=== PATIENT | male | born 1955 | race Caucasian/White ===

== ENCOUNTER 2016-08-06 14:12 | Inpatient (IN) | payer OTHER ==
[~2016-08-06] VITALS: Ht 180.3 cm; Wt 94.8 kg
[2016-08-06] MEDS ORDERED: ONDANSETRON 4 MG (ZOFRAN) ORAL DISSOLVE TAB PO PRN (17:15)
[2016-08-06] MEDS ORDERED: MECLIZINE 25 MG (ANTIVERT) TAB PO PRN (17:15)
[2016-08-06 19:10] VITALS: BP 130/83
[2016-08-06] MEDS: meTOprolol TARTRATE 25 MG (LOPRESSOR) TABLET PO SCH (21:25)
[2016-08-06] MEDS: ATORVASTATIN 40 MG (LIPITOR) TABLET PO SCH (21:25)
[2016-08-06] MEDS: PROPAFENONE 150 MG (RYTHMOL) TABLET PO SCH (21:26)
[2016-08-06] MEDS: PANTOPRAZOLE 40 MG (PROTONIX) TAB PO SCH (21:26)
[2016-08-06] MEDS: MELATONIN 3 MG TABLET PO PRN (22:42)
[2016-08-07 05:47] LABS: BASOPHILS % (AUTO) 0 % (0-10); EOSINOPHILS # (AUTO) 0.9 10^3/uL (0.0-0.3); EOSINOPHILS % (AUTO) 12 % (0-10); LYMPHOCYTES # (AUTO) 1.3 X 10^3 (1.0-4.0); LYMPHOCYTES % (AUTO) 16 % (12-44); MEAN CORPUSCULAR HEMOGLOBIN 28 PG (25-34); MEAN CORPUSCULAR HGB CONC 33 G/DL (32-36); MEAN CORPUSCULAR VOLUME 86 FL (80-99); MEAN PLATELET VOLUME 9.3 FL (7.4-10.4); MONOCYTES # (AUTO) 0.6 X 10^3 (0.0-1.0); MONOCYTES % (AUTO) 8 % (0-12); NEUTROPHILS % (AUTO) 64 % (42-75); PLATELET COUNT 428 10^3/uL (130-400); RED BLOOD COUNT 4.34 10^6/uL (4.35-5.85); RED CELL DISTRIBUTION WIDTH 13.7 % (10.0-14.5); WHITE BLOOD COUNT 7.9 10^3/uL (4.3-11.0)
[2016-08-07 06:14] LABS: ALANINE AMINOTRANSFERASE 48 U/L (0-55); ALBUMIN 3.3 GM/DL (3.2-4.5); ANION GAP 11 MMOL/L (5-14); ASPARTATE AMINO TRANSFERASE 27 U/L (5-34); BILIRUBIN,TOTAL 0.6 MG/DL (0.1-1.0); BLOOD UREA NITROGEN 23 MG/DL (7-18); BUN/CREATININE RATIO 20 (0-20); CALCIUM 8.7 MG/DL (8.5-10.1); CARBON DIOXIDE 22 MMOL/L (21-32); CHLORIDE 106 MMOL/L (98-107); CREATININE SERUM 1.15 MG/DL (0.60-1.30); GFR ESTIMATED > 60; GLUCOSE 101 MG/DL (70-105); HEMOLYSIS 2 (-100-29); ICTERUS 0.5 (-100-1.9); LIPEMIA 1 (-100-49); POTASSIUM 3.7 MMOL/L (3.6-5.0); SODIUM 139 MMOL/L (135-145); TOTAL PROTEIN 6.9 GM/DL (6.4-8.2)
[2016-08-07] MEDS: PROPAFENONE 150 MG (RYTHMOL) TABLET PO SCH (06:15)
[2016-08-07] MEDS: RIVAROXABAN 15 MG TABLET (XARELTO) PO SCH ×2 (06:15→16:53)
[2016-08-07] MEDS: PANTOPRAZOLE 40 MG (PROTONIX) TAB PO SCH ×2 (06:15→21:13)
[2016-08-07 06:26] VITALS: BP 109/72
[2016-08-07 08:05] VITALS: BP 128/80
[2016-08-07] MEDS: meTOprolol TARTRATE 25 MG (LOPRESSOR) TABLET PO SCH ×2 (10:10→21:13)
[2016-08-07] MEDS: DIGOXIN 0.25 MG (LANOXIN) TAB PO SCH (10:10)
[2016-08-07] MEDS: ASPIRIN 81 MG CHEW (CHILDREN'S ASA) PO SCH (10:11)
--- NOTE | 2016-08-07 10:26 | Occupational Therapy Eval ---
OT Evaluation-General/PLF Medical Diagnosis Admission Date Aug 06, 2016 at 18:43 Medical Diagnosis: cerebellar ataxia Onset Date: Jul 23, 2016 Therapy Diagnosis Therapy Diagnosis: decreased self care skills Height/Weight Height (Feet): 5 Height (Inches): 11.00 Weight (Pounds): 209 Weight (Ounces): 0.0 Precautions Precautions/Isolations: Standard Precautions Safety Interventions: Bed Exit Alarm, Reorient-PRN Referral Physician: [place] Medical History Additional Medical History testicular cancer, hyperlipidemia, insomnia, right calcaneus fracture. Current History Pt had a DVT/PE followed by Lauren-fib. Pt then began having episodes of dizziness and ataxia. Reviewed History: Yes Social History Home: Multilevel (can stay on main level) Entry Into Home: Stairs With Railing Steps Into Home: 3 ADL-Prior Level of Function ADL PLOF Comments Pt reports being independent prior to illness. 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 DME/Equipment: Shower Drive Self: Yes OT Current Status Subjective Pt sitting EOB after working with PT, agrees to therapy. Pt has no c/o pain. Mental Status/Objective Patient Orientation: Person, Place, Situation Current Glasses/Contacts: Yes (reading) Hearing Aids: No Dentures/Partials: Yes Hand Dominance: Right Upper Extremity ROM Grossly WFL Upper Extremity Coordination Fair Upper Extremity Sensation Intact per pt report Upper Extremity Strength Grossly WFL ADL-Treatment ADL-Current Pt declined shower today, states he had one yesterday. Agrees to sponge bath. Gait to restroom with minimal assistance for balance using FWW. Pt states he is not walking as well as he was earlier this morning. Doff shirt, shorts, underwear, and socks with SBA while seated. Sponge bath completed seated at sink. Pt able to wash all areas, but required minimal assistance for balance when standing to wash buttocks. Don pullover shirt with set up. Pt donned underwear and shorts with minimal assistance for balance during pant hike. Pt able to manage zipper and button on shorts without assistance. Dons bilateral socks with set up. Grooming tasks completed seated sink. Pt able to comb hair and complete oral care with set up. Pt demonstrates ability to complete toilet transfer with minimal assistance and cues for safety using FWW. Pt states he is having some dizziness, requests to sit in recliner. Pt transferred to recliner with minimal assistance. Sitting in chair with needs met and chair alarm in place after session. RN notified of pt's complaints and disposition. Functional [place] Measure 0=Not Assessed/NA 4=Minimal Assistance 1=Total Assistance 5=Supervision or Setup 2=Maximal Assistance 6=Modified [place] 3=Moderate Assistance 7=Complete IndependenceIRFPAI Quality Coding Scale 6 Independent with activity with or without an assistive device 5 Patient requires set up or clean up by helper. Patient completes activity by themselves 4 Supervision or touching assist (CGA). [place] provide cues , steadying assist 3 The helper provides less than half the effort to complete the activity 2 The helper provides more than half the effort to complete the activity 1 Dependent. The helper does all the effort to complete an activity 7 Patient refused to complete or attempt activity 9 The patient did not perform the activity before the current illness or injury 88 Not attempted due to Medical conditions or safety concerns Eating (FIM): 5 (set up) Eating (QC): 5 Grooming (FIM): 5 Oral Hygiene (QC): 5 Bathing (FIM): 4 Shower/Bathe Self (QC): 4 Upper Body Dressing (FIM): 5 Upper Body Dressing (QC): 5 Lower Body Dressing (FIM): 4 Lower Body Dressing (QC): 3 On/Off Footwear (QC): 5 Toilet/Commode Transfer (FIM): 4 Toilet Transfer (QC): 3 Education OT Patient Education: Rehab process Teaching Recipient: Patient Teaching Methods: Discussion Response to Teaching: Verbalize Understanding OT Short Term Goals Short Term Goals Time Frame: Aug 14, 2016 Bathing(FIM): 5 Lower Body Dressing(FIM): 5 Toilet/Commode Transfer(FIM): 5 Additional Short Term Goals: 1-Demonstrate ADL Tasks, 2-Verbalize Understanding , 3-ImproveStrength/Elyse 1=Demonstrate adherence to instructed precautions during ADL tasks. 2=Patient will verbalize/demonstrate understanding of assistive devices/ modifications for ADL. 3=Patient will improve strength/tolerance for activity to enable patient to perform ADL's. OT Residential Goals Warehouse Engineer Goals Time Frame: Aug 28, 2016 Eating (FIM): 6 Eating (QC): 6 Groomin Oral Hygiene (QC): 6 Bathing(FIM): 6 Shower/Bathe Self (QC): 6 Upper Body Dressing(FIM): 6 Upper Body Dressing (QC): 6 Lower Body Dressing(FIM): 6 Lower Body Dressing (QC): 6 On/Off Footwear (QC): 6 Toileting(FIM): 6 Toileting Hygiene (QC): 6 Toilet/Commode Transfer(FIM): 6 Toilet/Commode Transfer (QC): 6 Shower Transfer(FIM): 6 Additional Goals: 1-Demonstrate ADL Tasks, 2-Verbalize Understanding, 3- ImproveStrength/Elyse 1=Demonstrate adherence to instructed precautions during ADL tasks. 2=Patient will verbalize/demonstrate understanding of assistive devices/ modifications for ADL. 3=Patient will improve strength/tolerance for activity to enable patient to perform ADL's. OT Education/Plan Problem List/Assessment Assessment: Decreased Activ Tolerance, Dependent Transfers, Impaired Coordination, Impaired Funct Balance, Impaired Self-Care Skills Pt to benefit from skilled OT intervention for ADL training, transfers, strengthening, and safety education to maximize level of function and allow safe discharge. Discharge Recommendations Plan/Recommendations: Continue POC Treatment Plan/Plan of Care Treatment,Training & Education: Yes Patient would benefit from OT for education, treatment and training to promote independence in ADL's, mobility, safety and/or upper extremity function for ADL' s. Plan of Care: ADL Retraining, Functional Mobility, Group Exercise/Act as Ind, UE Funct Exercise/Act, UE Neuromus Re-Ed/Coord Treatment Duration: Aug 28, 2016 # of days/week 5-6 Visits Per Week: 10-12 Minutes/Day (M-F): 60-90 Minutes/Day (Sat/Collier): PRN Agreement: Yes Rehab Potential: Good Time/GCodes Start Time: 07:50 Stop Time: 08:20 Total Time Billed (hr/min): 30 Billed Treatment Time 1 visit, EVL(10minutes), ADL(20minutes) LATASHA MORENO OT Aug 07, 2016 10:26
--- NOTE | 2016-08-07 10:48 | Consultation ---
History of Present Illness History of Present Illness Patient Consulted On(hermilo/time) 08/07/16 10:48 Date of Admission 08/06/16 Reason for Visit: vertigo/ataxia History of Present Illness PT IS A 61 Y/O MALE FROM [place], [place]. HE WAS TRANSFERRED TO [facility] AFTER A PROLONGED HOSPITALIZATION. HE HAD INITIALLY BEEN ADMITTED TO [facility] IN [place] FOR PAROXYSMAL ATRIAL FIBRILLATION. HE WAS TRANSFERRED TO [facility] DUE TO PERSISTENT LIGHTHEADEDNESS, VERTIGO, DYSARTHRIA, SHAKING SPELLS. THE WORK- UP AT WAS NEGATIVE FOR ANY KNOWN ETIOLOGIES FOR HIS SYMPTOMS. THE PATIENT REPORTS THAT HE HAS HAD THE VERTIGO/DIZZINESS CHRONICALLY FOR YEARS , BUT AFTER HIS HOSPITALIZATION FOR THE AFIB AT [facility], HE STARTED TO HAVE SEVERE SYMPTOMS THAT IMPACTED HIS ABILITY TO AMBULATE. Allergies and Home Medications Allergies Coded Allergies: acetaminophen (Verified Allergy, Mild, 08/06/16) Past Xmbmysi-Imljje-Auznew Hx Patient Social History Alcohol Use: Occasionally Uses Recreational Drug Use: No Smoking Status: Former Smoker Type Used: Cigarettes Recent Foreign Travel: No Contact w/Someone Who Travel: No Recent Infectious Disease Expo: No Recent Hopitalizations: Yes Physical Abuse Screen: No Sexual Abuse: No Immunizations Up To Date Date of Pneumonia Vaccine: Jan 07, 2014 Seasonal Allergies Seasonal Allergies: No Respiratory Hx Respiratory Disorders: No Cardiovascular Hx Cardiac Disorders: Yes Cardiac Disorders: Atrial Fibrillation, High Cholesterol, Hypertension Neurological Hx Neurological Disorders: Yes Neurological Disorders: Vertigo Reproductive System Hx Reproductive Disorders: No Sexually Transmitted Disease: No HIV/AIDS: No Genitourinary Hx Genitourinary Disorders: No Gastrointestinal Hx Gastrointestinal Disorders: No Musculoskeletal Hx Musculoskeletal Disorders: Yes Musculoskeletal Disorders: Arthritis Endocrine Hx Endocrine Disorders: No HEENT HX ENT Disorders: No Loss of Vision: Denies Hearing Impairment: Denies Cancer Hx Cancer: Yes Cancer: Testicular Psychosocial Hx Psychiatric Problems: No Integumentary Skin/Integumentary Disorders: Psoriasis Blood Transfusions Hx Blood Disorders: No Adverse Reaction to a Blood Tr: No Reviewed Nursing Assessment Reviewed/Agree w Nursing PMH: Yes Family Medical History Significant Family History: Heart Disease, Hypertension Review of Systems-General Date Seen by Provider: Aug 07, 2016 Time Seen by Provider: 09:55 Constitutional: No chills, No fever, malaise, weakness EENTM: No hoarseness, No mouth pain, No throat pain, No throat swelling Respiratory: No cough, No dyspnea on exertion, No short of breath Cardiovascular: No edema, No palpitations Gastrointestinal: No abdominal pain, No constipation, No diarrhea, No nausea, No vomiting Genitourinary: no symptoms reported Musculoskeletal: muscle weakness Skin: no symptoms reported Psychiatric/Neurological: Denies Anxiety, Weakness, Other (DIZZINESS, VERTIGO, ATAXIA WITH AMBULATION) Physical Exam-General Problems Physical Exam Vital Signs Vital Sign - Last 12Hours 08/06/16 19:10 Temp 99.6 Pulse 60 Resp 20 B/P (MAP) 130/83 Pulse Ox 97 O2 Delivery Room Air Capillary Refill : General Appearance: WD/WN, no apparent distress Eyes: Bilateral Eye EOMI, Bilateral Eye Normal Inspection, Bilateral Eye PERRL HEENT: PERRL/EOMI, pharynx normal Neck: non-tender, full range of motion, supple, normal inspection Respiratory: chest non-tender, lungs clear, normal breath sounds, no respiratory distress Cardiovascular: regular rate, rhythm Gastrointestinal: normal bowel sounds, non tender, soft, no organomegaly, no pulsatile mass Extremities: normal range of motion, non-tender, normal inspection, no pedal edema, no calf tenderness, normal capillary refill Neurologic/Psychiatric: terrazzo polisher helper II-XII nml as tested, no motor/sensory deficits, alert, normal mood/affect, oriented x 3 Skin: warm/dry Lymphatic: no adenopathy Assessment/Plan Assessment/Plan Admission Diagnosis/Plan PAROXYSMAL ATRIAL FIBRILLATION VERTIGO WEAKNESS HYPERTENSION HYPERLIPIDEMIA PAROXYSMAL ATRIAL FIBRILLATION - PT IS ON RHYTHMOL, METOPROLOL, XARELTO. - THE RHYTHMOL HAS BEEN DISCONTINUED DUE TO CONCERN OVER THIS SIDE EFFECT OF WORSENING DIZZINESS/VERTIGO/ATAXIA. VERTIGO AND WEAKNESS - PT ON MECLIZINE. HE REPORTS A LONG-STANDING HISTORY OF MILD VERTIGO. PT REPORTS THAT HE STARTED TO HAVE WORSENING DIZZINESS AFTER HE STARTED ON THE RHYTHMOL. I HAVE DISCUSSED HIS CASE WITH THE MANUFACTURING PROJECT MANAGER - DR. KINCAID. WE WILL STOP THE RHYTHMOL AND THEN DETERMINE IF THIS MEDICATION IS PART OF THE CAUSE OF HIS WORSENING DIZZINESS. HYPERTENSION - CONTROLLED- CONTINUE WITH METOPROLOL. HYPERLIPIDEMIA- PT IS ON LIPITOR. CONTINUE WITH PHYSICAL THERAPY. Clinical Quality Measures DVT/VTE Risk/Contraindication: Risk Factor Score Per Nursin RFS Level Per Nursing on Admit: 4+=Very High CHACHA MUNOZ MD Aug 07, 2016 10:48
[2016-08-07 11:47] VITALS: BP 109/74
[2016-08-07] MEDS: acetaZOLAMIDE 250 MG (DIAMOX) TAB PO SCH ×2 (12:15→21:13)
--- NOTE | 2016-08-07 13:20 | Physical Therapy Evaluation ---
PT Evaluation-General Medical Diagnosis Admission Date Aug 06, 2016 at 18:43 Medical Diagnosis: cerebellar ataxia Onset Date: Jul 23, 2016 Therapy Diagnosis Therapy Diagnosis: balance and gait impairment Height/Weight Height (Feet): 5 Height (Inches): 11.00 Weight (Pounds): 209 Weight (Ounces): 0.0 Precautions Precautions/Isolations: Fall Prevention, Standard Precautions Referral Physician: [place] Reason for Referral: Evaluation/Treatment Medical History Pertinent Medical History: Atrial Fib, Thrombosis Current History approximately 3 weeks ago patient patient had a DVT that progressed to a pulmonary embolism. During treatment of this condition he developed A Fib. He notes a long standing condition of poor balance but the symptoms progressed since beginning treatment for the current condition. Reviewed History: Yes Social History Home: Multilevel (can stay on main level) Current Living Status: Spouse Entry Into Home: Stairs With Railing PT Steps Into Home: 3 Prior/Core FIM Prior Level of Function Functional [place] Measure 0=Not Assessed/NA 4=Minimal Assistance 1=Total Assistance 5=Supervision or Setup 2=Maximal Assistance 6=Modified [place] 3=Moderate Assistance 7=Complete [place] Bed Mobility: 7 Transfers (B,C,W/C) (FIM): 7 Gait: 7 Patient has a cane and walker to use if needed. He was not using them prior to this event. PT Evaluation-Current Subjective Pt reports he is feeling improved with less episodes of "dizziness" but he still does not feel his balance is back to the same level it was 2 months ago. Objective Patient Orientation: Normal For Age Problem Solving: Good ROM/Strength ROM Upper Extremities WFL ROM Lower Extremities WFL Strength Upper Extremities 5/5 Strenght Lower Extremities 5/5 Integumentary/Posture Bowel Incontinence: No Sensory Hand Dominance: Right Sensation Right Upper Extremit: Intact Sensation Left Upper Extremity: Intact Sensation Right Lower Extremit: Intact Sensation Left Lower Extremity: Intact Transfers Functional [place] Measure 0=Not Assessed/NA 4=Minimal Assistance 1=Total Assistance 5=Supervision or Setup 2=Maximal Assistance 6=Modified [place] 3=Moderate Assistance 7=Complete IndependenceIRFPAI Quality Coding Scale 6 Independent with activity with or without an assistive device 5 Patient requires set up or clean up by helper. Patient completes activity by themselves 4 Supervision or touching assist (CGA). [place] provide cues , steadying assist 3 The helper provides less than half the effort to complete the activity 2 The helper provides more than half the effort to complete the activity 1 Dependent. The helper does all the effort to complete an activity 7 Patient refused to complete or attempt activity 9 The patient did not perform the activity before the current illness or injury 88 Not attempted due to Medical conditions or safety concerns Transfers (B, C, W/C) (FIM): 4 (steadying assist for balance) Scootin Rollin Roll Left to Right (QC): 4 Supine to/from Sit: 4 Sit to/from Stand: 4 Sit to Lying (QC): 3 Lying to Sitting/Side of Bed(Q: 3 Sit to Stand (QC): 3 Chair/Uec-dh-Idker Xfer(QC): 3 Car Transfer (QC): 3 Gait Does the Patient Walk?: Yes Mode of Locomotion: Walk Anticipated Mode of Locomotion: Walk Gait (FIM): 4 Distance (FIM): 3=150 ft Walk 10 feet (QC): 3 Walk 50 ft with 2 Turns(QC): 3 Walk 150 ft (QC): 3 Walking 10ft/uneven surface-QC: 3 Distance: 150 Gait Level of Assist: 4 Gait Persons Needed: 1 Comments/Gait Description Steadying assistance for gait. Tendency to have lateral ataxia with need for minimal physical assist to return to a balanced position. When walking without device he needs minimal physical asssist for balance. Wheelchair Training Does the Pt Use a Wheelchair?: No Stairs Stairs (FIM): 4 #of Steps: 12 Level of Assist: 4 1 Step (curb) (QC): 3 4 Steps (QC): 3 12 Steps (QC): 3 catches his toe on step when ascending stairs due to lack of fine motor control Balance Sitting Static: Good Sitting Dynamic: Good Standing Static: Fair Standing Dynamic: Fair Picking up an Object (QC): 3 Special Test Comments TUG score of 20 seconds Ott Balance Test 47 out of 56 Assessment/Needs Pt has fine motor deficits that place him at risk during high attention gait and standing balance activities. His score on the Ott Balance Test indicates he is in need of an assistive device for ambulation to reduce risk of falls. Pt will benefit from therapy to address high level balance and gait activities and to address need for an appropriate assistive device. Rehab Potential: Good PT Short Term Goals Short Term Goals Time Frame: Aug 13, 2016 Transfers (B,C,W/C) (FIM): 6 Gait (FIM): 5 Distance (FIM): 3=150 ft Gait Distance Comment: 300 Gait Level of Assist: 5 Gait Assistive Device: FWW Stairs (FIM): 4 # of Steps: 12 Stairs Level of Assist: 4 PT Supervisor Calibration Goals Supervisor Calibration Goals PT Fdc Goals Time Frame: Aug 20, 2016 Transfers (B,C,W/C) (FIM): 6 Sit to Lying (QC): 6 Lying-Sitting on Side/Bed(QC): 6 Sit to Stand (QC): 6 Rollin Roll Left to Right (QC): 6 Chair/Xhi-qd-Qpvhh Xfer(QC): 6 Car Transfer (QC): 6 Does the Patient Walk: Yes Gait distance (FIM): 3=150 ft Distance: 500 Walk 10 feet (QC): 6 Walk 10ft-Uneven Surface(QC): 6 Walk 50ft with 2 Turns (QC): 6 Walk 150 ft (QC): 6 Gait Level of Assist: 6 Gait Assistive Device: FWW, Cane Single Point Stairs (FIM): 6 # of Steps: 12 1 Step (curb) (QC): 6 4 Steps (QC): 6 12 Steps (QC): 6 Stairs Level Of Assist: 6 Picking up an Object (QC): 6 PT Plan Problem List Problem List: Balance, Gait, Transfer Treatment/Plan Treatment Plan: Continue Plan of Care Treatment Plan: Education, Functional Activity E[place]se, Group Therapy, Gait, Safety, Therapeutic Exercise Treatment Duration: Aug 20, 2016 # of days/week 6 Visits Per Week: 11 Minutes/Day (M-F): 90 Minutes/Day (Sat/Collier): 15 Pt/Family Agrees w/Plan: Yes Safety Risks/Education Patient Education: Gait Training, Transfer Techniques, Steps Teaching Recipient: Patient, Family Teaching Methods: Demonstration Response to Teaching: Verbalize Understanding Discharge Recommendations Therapy D/C Recommendations: Home w/ Family Support Barriers to Progress none Target Placement home Time/GCodes Time In: 0700 Time Out: 0750 Total Billed Treatment Time: 50 Total Billed Treatment visit, evaluation moderate complexity 50 minutes DESIREE DEVLIN PT Aug 07, 2016 13:20
--- NOTE | 2016-08-07 13:30 | Consultation-Cardiology ---
HPI-Cardiology Cardiology Consultation Date of Consultation 08/07/16 Date of Admission Time Seen by Provider: 11:50 Indication: atrial fibrillation HPI 61 years old gentleman with history of chronic dizziness, has strong family history of vertigo, was admitted to [facility] in [place] for DVT and PE, started on Xarelto, then he was noted to be in atrial fibrillation, underwent electrical cardioversion which was successful in terminating atrial fibrillation but it did not persist, patient was started on Rythmol, he reported significant worsening in his dizziness and dysarthria in addition to episode of shaking, he was transferred to , underwent extensive workup without success in pinpointing the cause of his vertigo and dizziness, patient is unable to ambulate due to the severe dizziness. He had previous history of dizziness which was not as severe. Had an MRI of the head and spine, patient and reported that all his workup was negative. He was reported to have ataxia and transferred for the acute rehabilitation unit for physical therapy. Home Medications & Allergies Allergies: Coded Allergies: acetaminophen (Verified Allergy, Mild, 08/06/16) Home Medication List Reviewed: Yes HMT-Fnstrf-Cqfocp Hx Patient Social History Marital Status: Alcohol Use: Occasionally Uses Recreational Drug Use: No Smoking Status: Former Smoker Type Used: Cigarettes Recent Foreign Travel: No Recent Infectious Disease Expo: No Recent Hopitalizations: Yes Physical Abuse Screen: No Sexual Abuse: No Immunizations Up To Date Date of Pneumonia Vaccine: Jan 07, 2014 Past Medical History past medical history as discussed below Family Medical History Family Medical Hx family history of dizziness Constitutional: see HPI, dizziness, malaise, weakness EENTM: no symptoms reported, see HPI Respiratory: see HPI, No cough, No dyspnea on exertion, No hemoptysis, No orthopnea, No phlegm, No short of breath, No stridor, No wheezing, No other Cardiovascular: see HPI, No chest pain, No edema, No Hx of Intervention, No palpitations, No syncope, No vascular heart diseas, No other Gastrointestinal: no symptoms reported, see HPI Genitourinary: no symptoms reported, see HPI Musculoskeletal: no symptoms reported, see HPI Skin: no symptoms reported, see HPI Psychiatric/Neurological: No Symptoms Reported, See HPI Reviewed Test Results Reviewed Test Results Lab Laboratory Tests Test 08/07/16 05:16 Range/Units White Blood Count 7.9 4.3-11.0 10^3/uL Red Blood Count 4.34 L 4.35-5.85 10^6/uL Hemoglobin 12.3 L 13.3-17.7 G/DL Hematocrit 37 L 40-54 % Mean Corpuscular Volume 86 80-99 FL Mean Corpuscular Hemoglobin 28 25-34 PG Mean Corpuscular Hemoglobin Concent 33 32-36 G/DL Red Cell Distribution Width 13.7 10.0-14.5 % Platelet Count 428 H 130-400 10^3/uL Mean Platelet Volume 9.3 7.4-10.4 FL Neutrophils (%) (Auto) 64 42-75 % Lymphocytes (%) (Auto) 16 12-44 % Monocytes (%) (Auto) 8 0-12 % Eosinophils (%) (Auto) 12 H 0-10 % Basophils (%) (Auto) 0 0-10 % Neutrophils # (Auto) 5.0 1.8-7.8 X 10^3 Lymphocytes # (Auto) 1.3 1.0-4.0 X 10^3 Monocytes # (Auto) 0.6 0.0-1.0 X 10^3 Eosinophils # (Auto) 0.9 H 0.0-0.3 10^3/uL Basophils # (Auto) 0.0 0.0-0.1 10^3/uL Sodium Level 139 135-145 MMOL/L Potassium Level 3.7 3.6-5.0 MMOL/L Chloride Level 106 98-107 MMOL/L Carbon Dioxide Level 22 21-32 MMOL/L Anion Gap 11 5-14 MMOL/L Blood Urea Nitrogen 23 H 7-18 MG/DL Creatinine 1.15 0.60-1.30 MG/DL Estimat Glomerular Filtration Rate > 60 BUN/Creatinine Ratio 20 0-20 Glucose Level 101 70-105 MG/DL Calcium Level 8.7 8.5-10.1 MG/DL Total Bilirubin 0.6 0.1-1.0 MG/DL Aspartate Amino Transf (AST/SGOT) 27 5-34 U/L Alanine Aminotransferase (ALT/SGPT) 48 0-55 U/L Alkaline Phosphatase 104 40-136 U/L Total Protein 6.9 6.4-8.2 GM/DL Albumin 3.3 3.2-4.5 GM/DL Physical Exam Vital Signs Vital Sign - Last 12Hours 08/06/16 19:10 Temp 99.6 Pulse 60 Resp 20 B/P (MAP) 130/83 Pulse Ox 97 O2 Delivery Room Air Capillary Refill : General Appearance: No Apparent Distress, WD/WN Eyes: Bilateral Eye EOMI, Bilateral Eye Normal Inspection, Bilateral Eye PERRL HEENT: PERRL/EOMI, TMs Normal, Normal ENT Inspection, Pharynx Normal Neck: Full Range of Motion, Normal Inspection, Non Tender, Supple, Carotid Bruit Respiratory: Chest Non Tender, Lungs Clear, Normal Breath Sounds, No Accessory Muscle Use, No Respiratory Distress Cardiovascular: Regular Rate, Rhythm, No Edema, No Gallop, No JVD, No Murmur, Normal Peripheral Pulses Gastrointestinal: Normal Bowel Sounds, No Organomegaly, No Pulsatile Mass, Non Tender, Soft Back: Normal Inspection, No CVA Tenderness, No Vertebral Tenderness Extremity: Normal Capillary Refill, Normal Inspection, Normal Range of Motion, Non Tender, No Calf Tenderness, No Pedal Edema Neurologic/Psychiatric: Alert, Oriented x3, Normal Mood/Affect, Abnormal Gait Skin: Normal Color, Warm/Dry Lymphatic: No Adenopathy A/P-Cardiology Admission Diagnosis Paroxysmal atrial fibrillation DVT/PE Vertigo Ataxia Hypertension Assessment/Plan Paroxysmal atrial fibrillation, underwent electrical cardioversion in [place] and he was unable to maintain sinus rhythm, started on Rythmol and Xarelto, Rythmol was discontinued today for the possibility of worsening his dizziness. I will continue monitoring his symptoms. Deep venous thrombosis/pulmonary embolism, unprovoked, started on Xarelto. Ataxia, dizziness, dysarthria, worsening symptoms, extensive workup was done at , evaluated by ENT, neurologist, unable to pinpoint the cause of his dizziness. Patient has history of chronic dizziness and strong family history of dizziness but he was able to function previously, since his last hospitalization earlier this month he has been unable to function due to severe vertigo and ataxia with dizziness. I agree with Dr. Lima on holding Rythmol and evaluate his tolerance and response. Hypertension, controlled, continue to monitor blood pressure Clinical Quality Measures DVT/VTE Risk/Contraindication: Risk Factor Score Per Nursin RFS Level Per Nursing on Admit: 4+=Very High LUCILA KINCAID MD Aug 07, 2016 13:30
[2016-08-07] MEDS ORDERED: CATHETER FLUSH 10 ML SYR IV PRN (15:45)
[2016-08-07 16:21] VITALS: BP 116/73
--- NOTE | 2016-08-07 20:39 | HISTORY AND PHYSICAL ---
DATE OF SERVICE: 08/06/2016 CHIEF COMPLAINT: Difficulty with walking. HISTORY OF PRESENT ILLNESS: The patient is a 61-year-old male who had been independent and living with his spouse in [place], [place], who developed an irregular heart beat after having a DVT and pulmonary embolism. The patient was treated in [place] and sent home, but then developed dizziness and ataxia. They went on to [facility] where he was diagnosed with cerebellar ataxia. He is referred to [facility] inpatient rehabilitation for ongoing rehabilitation. Currently, he requires assistance for his ADLs mobility skills. He presents to unit with his and two daughters; one of whom, works at a local [employer] in [place],See PT/ OT dmitriy for details of admission functional status. PAST MEDICAL HISTORY: Insomnia, hyperlipidemia, testicular cancer, and right calcaneus fracture. PAST SURGICAL HISTORY: As per above. ALLERGIES: ACETAMINOPHEN, CAUSING A RASH. FAMILY HISTORY: Neurologic history of similar disorder. 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 REVIEW OF SYSTEMS: A 10-point review of system is significant for occasional dizziness, ataxia, gait imbalance, and irregular heart beat. MEDICATIONS: ASA 81 mg p.o. q.d., digoxin 0.25 mg p.o. q.d., Xarelto 15 mg p.o. b.i.d., Rythmol 150 mg p.o. q. 8 hours, Melatonin 6 mg p.o. each day at bedtime p.r.n. sleep, Lipitor 40 mg p.o. each day at bedtime, Lopressor 12.5 mg p.o. b.i.d., Protonix 40 mg p.o. b.i.d., Antivert 25 mg p.o. q.i.d. p.r.n. dizziness, Zofran 4 mg p.o. q. 6 hours p.r.n. nausea, Diamox one 500 mg p.o. b.i.d. PHYSICAL EXAMINATION: GENERAL: Significant for a pleasant male, appearing his stated age, alert and oriented, sitting up in chair, no acute distress. VITAL SIGNS: Blood pressure is 128/80. He is afebrile. Pulse is 69 and respirations 20. O2 sat 94% on room air. HEENT: Vision, speech and hearing grossly intact. No oral lesion is noted. NECK; Supple without mass. HEART: Regular rhythm. LUNGS: Clear. ABDOMEN: Soft, nontender. EXTREMITIES: No leg edema, no calf tenderness. MUSCULOSKELETAL: The patient has functional active range of motion of all 4 extremities. NEUROLOGICAL: He has gait imbalance. His upper limb coordination is fair. Sensation is grossly intact to touch in all four limbs. He has functional strength, but impaired dynamic standing balance, gait instability. Cognition is grossly intact. IMPRESSION: 1. Cerebellar ataxia with gait imbalance. 2. Atrial fibrillation, now controlled on medication. 3. DVT, pulmonary embolism on Xarelto. 4. Insomnia, melatonin ordered to the patient. The patient does not tolerate Ambien. PLAN: The patient will have a comprehensive program with inpatient rehabilitation with a goal of maximizing level of functional independence prior to discharge home with spouse. The patient will have PT and OT 90 minutes per day for gait, strengthening, conditioning, balance, ADLs, any patient's family caregiver training as necessary, adaptive equipment and training as necessary. Speech therapy will do a cognitive assessment and treat as indicated. Rehabilitation nursing to assist with bowel, bladder, skin care, medication administration, pain management. health services information specialist to assist with discharge planning, community reentry. I have asked Dr. Veliz to follow this patient for medical concerns as needed. Therapy will coordinate and follow precautions. Estimated length of stay 2 weeks. PROGNOSIS: Rehab prognosis appears good for a goal of discharging home with spouse, modified independent to supervision for ADLs and mobility skills. DIET: Heart healthy. CODE STATUS: Full code. Job ID: [id number] DocumentID: [id number] Dictated Date: 08/07/2016 10:44:37 Vp Research Date: 08/07/2016 15:01:26 Dictated By: MATI OSUNA MD [facility]
[2016-08-07] MEDS: ATORVASTATIN 40 MG (LIPITOR) TABLET PO SCH (21:13)
[2016-08-07] MEDS: CATHETER FLUSH 10 ML SYR IV SCH (21:13)
[2016-08-07] MEDS: MELATONIN 3 MG TABLET PO PRN (21:13)
--- NOTE | 2016-08-07 21:34 | PM&R Post Admission Assessment ---
Post Admission Physician Asses The preadmission screen agrees with the post admission assessment that the patient is a good candidate for inpatient rehabilitation. The patient will have a comprehensive program of inpatient rehabilitation with a goal of maximizing level of functional independence prior to discharge home with family. The patient will have PT/OT ninety minutes per day, each discipline, five days a week for gait ,strengthening, conditioning, balance, ADLs, any patient/family/caregiver training necessary. Speech therapy to do cognitive assessment and treat as indicted. Rehabilitation nursing to assist with bowel, bladder, skin, medication administration, pain management. Parachute Folder to assist with discharge planning, community reentry. SCD's for DVT prophylaxis. He appears to be well motivated to participate in three hours of therapy a day. He should be able to tolerate three hours of therapy a day from a medical standpoint. He should benefit from the three hours of therapy a day. He has a reasonable discharge plan, reasonable discharge rehabilitation goals and a supportive family. He has various comorbidities that need to be closely monitored with medications and treatments adjusted on a daily basis as needed. These include: A FIb DVT/PE Cerebellar ataxia Barriers to discharge for this patient who had been independent prior to this are for him to be modified independent to supervision for ADLs and mobility skills prior to discharge home with family] so as to lessen the burden of the caregivers. Risks for this patient include: 1. Fall 2. Fracture 3. DVT 4. Pulmonary embolism 5. Wound infection 6. Skin breakdown 7. Contractures 8. Poorly controlled pain 9. Urinary retention 10. UTI 11. Respiratory infection 12. Aspiration 13. Poorly controlled A FIB 14. Recurrent DVT/PE Estimated Length of Stay: 14 days Prognosis: Rehab prognosis appears good for goal of discharge home with family modified independent to supervision for ADLs and mobility skills. MATI OSUNA MD Aug 07, 2016 21:34
[2016-08-08 05:46] VITALS: BP 108/68
[2016-08-08] MEDS: PANTOPRAZOLE 40 MG (PROTONIX) TAB PO SCH ×2 (06:24→20:47)
[2016-08-08] MEDS: CATHETER FLUSH 10 ML SYR IV SCH ×3 (06:24→20:47)
[2016-08-08] MEDS: RIVAROXABAN 15 MG TABLET (XARELTO) PO SCH ×2 (06:24→17:46)
[2016-08-08] MEDS: DIGOXIN 0.25 MG (LANOXIN) TAB PO SCH (08:10)
[2016-08-08] MEDS: ASPIRIN 81 MG CHEW (CHILDREN'S ASA) PO SCH (08:10)
[2016-08-08] MEDS: meTOprolol TARTRATE 25 MG (LOPRESSOR) TABLET PO SCH ×2 (08:11→20:48)
[2016-08-08] MEDS: acetaZOLAMIDE 250 MG (DIAMOX) TAB PO SCH ×2 (08:11→20:48)
[2016-08-08 08:13] VITALS: BP 101/67
[2016-08-08 11:31] VITALS: BP 123/84
--- NOTE | 2016-08-08 11:32 | Progress Note (SOAP) ---
Subjective Date Seen by Provider: Aug 08, 2016 Time Seen by Provider: 10:10 Subjective/Events-last exam PT REPORTS THAT HIS DIZZINESS HAS IMPROVED. HE STATES THAT HIS GAIT ABNORMALITY HAS IMPROVED WELL. HE STATES THAT HIS FATIGUE IS BETTER, BUT NOT BACK TO HOME STAMINA. HE REPORTS THAT HE HAS A FEW EPISODES OF DIZZINESS YESTERDAY, BUT THE EPISODES OF DIZZINESS WERE CLOSER TO HIS CHRONIC DIZZINESS, NOT QUITE EXTREME HIS DIZZINESS WHEN HE WAS AT [facility]. Review of Systems General: No Chills, Fatigue, No Malaise HEENT: No Head Aches Pulmonary: No Dyspnea, No Cough Cardiovascular: No: Chest Pain, Palpitations Gastrointestinal: No: Abdominal Pain, Nausea Genitourinary: No Dysuria Neurological: Weakness, No: Confusion Objective Exam Vital Signs Date Time Temp Pulse Resp B/P (MAP) Pulse Ox O2 Delivery O2 Flow Rate FiO2 08/08/16 09:00 94 Room Air 08/08/16 08:13 76 101/67 08/08/16 07:43 61 08/08/16 05:46 98.0 56 18 108/68 95 Room Air 08/08/16 01:00 60 08/07/16 21:12 60 08/07/16 20:13 Room Air 08/07/16 19:00 65 08/07/16 16:21 99.1 56 20 116/73 97 Room Air 08/07/16 11:47 98.0 60 20 109/74 95 Room Air I & O 08/08/16 07:00 Intake Total 700 ml Balance 700 ml Capillary Refill : General Appearance: No Apparent Distress, WD/WN HEENT: PERRL/EOMI, Pharynx Normal Neck: Full Range of Motion, Supple Respiratory: Chest Non Tender, Lungs Clear, Normal Breath Sounds, No Accessory Muscle Use, No Respiratory Distress Cardiovascular: Regular Rate, Rhythm, No Edema Gastrointestinal: normal bowel sounds, non tender, soft, no organomegaly, no pulsatile mass Extremity: Normal Capillary Refill, No Calf Tenderness, No Pedal Edema Neurologic/Psychiatric: Alert, Oriented x3, Normal Mood/Affect Skin: Warm/Dry, Pet[place]ia (IMPROVED LESIONS ACROSS LOWER LEGS) Lymphatic: No Adenopathy Results Lab Laboratory Tests 08/08/16 05:03: Thyroid Stimulating Hormone (TSH) 4.55 Assessment/Plan Assessment/Plan Assess & Plan/Chief Complaint PAROXYSMAL ATRIAL FIBRILLATION VERTIGO WEAKNESS HYPERTENSION HYPERLIPIDEMIA PAROXYSMAL ATRIAL FIBRILLATION - PT IS ON RHYTHMOL, METOPROLOL, XARELTO. - THE RHYTHMOL HAS BEEN DISCONTINUED DUE TO CONCERN OVER THIS SIDE EFFECT OF WORSENING DIZZINESS/VERTIGO/ATAXIA. PT REPORTS THAT HE IS FEELING GOOD TODAY, NO SENSATION FO PALPITATIONS. VERTIGO AND WEAKNESS - PT ON MECLIZINE. HE REPORTS A LONG-STANDING HISTORY OF MILD VERTIGO. PT REPORTS THAT HE STARTED TO HAVE WORSENING DIZZINESS AFTER HE STARTED ON THE RHYTHMOL. I HAVE DISCUSSED HIS CASE WITH THE TRACK REPAIRER HELPER - DR. KINCAID. WE WILL STOP THE RHYTHMOL AND THEN DETERMINE IF THIS MEDICATION IS PART OF THE CAUSE OF HIS WORSENING DIZZINESS. - PT IS OFF OF THE RHYTHMOL AND HE REPORTS THAT HE IS FEELING MUCH BETTER TODAY - HIS DIZZINESS HAS IMPROVED A LOT AND HE WAS ABLE TO SHOWER WITHOUT FEELING DIZZY. HYPERTENSION - CONTROLLED- CONTINUE WITH METOPROLOL. HYPERLIPIDEMIA- PT IS ON LIPITOR. CONTINUE WITH PHYSICAL THERAPY. Clinical Quality Measures DVT/VTE Risk/Contraindication: Risk Factor Score Per Nursin RFS Level Per Nursing on Admit: 4+=Very High CHACHA MUNOZ MD Aug 08, 2016 11:32
[2016-08-08 18:26] VITALS: BP 106/72
[2016-08-08] MEDS: ATORVASTATIN 40 MG (LIPITOR) TABLET PO SCH (20:47)
[2016-08-08] MEDS: MELATONIN 3 MG TABLET PO PRN (20:56)
[2016-08-09 05:09] VITALS: BP 138/74
[2016-08-09] MEDS: CATHETER FLUSH 10 ML SYR IV SCH ×3 (06:12→22:17)
[2016-08-09] MEDS: RIVAROXABAN 15 MG TABLET (XARELTO) PO SCH ×2 (06:12→16:59)
[2016-08-09] MEDS: PANTOPRAZOLE 40 MG (PROTONIX) TAB PO SCH ×2 (06:12→21:16)
--- NOTE | 2016-08-09 08:11 | Cardiology Progress Note ---
Subjective Date Seen by Provider: Aug 09, 2016 Time Seen by Provider: 08:08 Subjective/Events-last exam Patient just finished walking with PT. States dizziness has improved significantly since discontinuing Rythmol. Reports dizziness back to baseline. Denies any CP or dyspnea. Review of Systems General: No Night Sweats, No Fatigue, No Malaise HEENT: No Visual Changes, No Dysphasia, No Sore Throat, Other (chronic dizziness) Pulmonary: No Dyspnea, No Cough Cardiovascular: No: Chest Pain, Edema, Palpitations, Paroxysmal Noc. Dyspnea Gastrointestinal: No: Abdominal Pain, Constipation, Nausea, Vomiting Genitourinary: No Dysuria, No Frequency Musculoskeletal: No: back pain, neck pain Neurological: No: Change in speech, Confusion, Numbness, Weakness Objective-Cardiology Exam Last Set of Vital Signs Vital Signs 08/09/16 08/09/16 05:09 07:00 Temp 98.4 Pulse 58 Resp 16 B/P (MAP) 138/74 Pulse Ox 99 O2 Delivery Room Air Capillary Refill : I&O Intake and Output 08/09/16 00:00 Intake Total 400 ml Balance 400 ml Intake Oral 400 ml # Voids 3 General: Alert, Oriented X3, Cooperative HEENT: Atraumatic, PERRLA Neck: Supple, No JVD, No Thyromegaly Lungs: Clear to Auscultation, Normal Air Movement Heart: No Murmurs, Other (irregularly irregular) A/P-Cardiology Admission Diagnosis Paroxysmal atrial fibrillation DVT/PE Vertigo Ataxia Hypertension Assessment/Plan Paroxysmal atrial fibrillation, underwent electrical cardioversion in [place] and he was unable to maintain sinus rhythm, started on Rythmol and Xarelto, Rythmol was discontinued and dizziness significantly improved. Continue current medications and continue to monitor. Deep venous thrombosis/pulmonary embolism, unprovoked, started on Xarelto. Ataxia, dizziness, dysarthria, worsening symptoms, extensive workup was done at , evaluated by ENT, neurologist, unable to pinpoint the cause of his dizziness. Patient has history of chronic dizziness and strong family history of dizziness but he was able to function previously, since his last hospitalization earlier this month he has been unable to function due to severe vertigo and ataxia with dizziness. Dizziness improved significantly since discontinuing Rythmol. Hypertension, controlled, continue to monitor blood pressure Clinical Quality Measures DVT/VTE Risk/Contraindication: Risk Factor Score Per Nursin RFS Level Per Nursing on Admit: 4+=Very High AWILDA ARREAGA Aug 09, 2016 08:11
--- NOTE | 2016-08-09 08:29 | Progress Note (SOAP) ---
Subjective Time Seen by Provider: 08:25 Subjective/Events-last exam patient states he's feeling okay today [facility] Patient had proximal atrial fibrillation. Patient had PE and DVT. Patient had dizziness and vertigo Patient has a history of hypertens. Possible stroke Objective Exam Vital Signs Date Time Temp Pulse Resp B/P (MAP) Pulse Ox O2 Delivery O2 Flow Rate FiO2 08/09/16 07:00 58 08/09/16 06:11 64 08/09/16 05:09 98.4 60 16 138/74 99 Room Air 08/09/16 01:00 57 08/08/16 20:27 Room Air 08/08/16 19:00 67 08/08/16 18:26 98.5 66 14 106/72 99 Room Air 08/08/16 13:00 53 08/08/16 11:31 66 18 123/84 96 Room Air 08/08/16 09:00 94 Room Air I & O 08/09/16 07:00 Intake Total 1000 ml Balance 1000 ml Capillary Refill : General Appearance: No Apparent Distress, WD/WN HEENT: Normal ENT Inspection Neck: Normal Inspection Respiratory: Chest Non Tender, No Accessory Muscle Use, No Respiratory Distress Cardiovascular: Regular Rate, Rhythm, No Murmur Gastrointestinal: non tender, soft Assessment/Plan Assessment/Plan Assess & Plan/Chief Complaint proximal atrial fibrillation. PE and DVT. Dizziness. DVT. Hypertension. Vertigo versus dizziness. Possible stroke. Patient work in progress. Patient using a walker Clinical Quality Measures DVT/VTE Risk/Contraindication: Risk Factor Score Per Nursin RFS Level Per Nursing on Admit: 4+=Very High MALISSA NELSON DO Aug 09, 2016 08:28
--- NOTE | 2016-08-09 08:57 | Physical Therapy Daily Note ---
PT Daily Note-Current Subjective Patient in recliner pre tx, agrees to PT, no complaints of pain. Patient states he has not had any dizziness recently since a change in meds. Appearance Patient in recliner post tx with nurse call, phone, tray, in room. Mental Status Patient Orientation: Normal For Age Transfers Functional Sullivan Measure 0=Not Assessed/NA 4=Minimal Assistance 1=Total Assistance 5=Supervision or Setup 2=Maximal Assistance 6=Modified Sullivan 3=Moderate Assistance 7=Complete IndependenceIRFPAI Quality Coding Scale 6 Independent with activity with or without an assistive device 5 Patient requires set up or clean up by helper. Patient completes activity by themselves 4 Supervision or touching assist (CGA). [place] provide cues , steadying assist 3 The helper provides less than half the effort to complete the activity 2 The helper provides more than half the effort to complete the activity 1 Dependent. The helper does all the effort to complete an activity 7 Patient refused to complete or attempt activity 9 The patient did not perform the activity before the current illness or injury 88 Not attempted due to Medical conditions or safety concerns Transfers (B, C, W/C) (FIM): 4 Sit to/from Stand: 4 CGA, cues for safety and hand placement Gait Training Gait (FIM): 4 Distance: 200'x2, 150' Gait Level of Assist: 4 Gait Persons Needed: 1 Gait Assistive Device: FWW Patient ambulated 150' and 200' with a rolling walker with CGA, and 200' with a single point cane with CGA. He was unsteady with the SPC but no LOB. Patient ambulates slowly and carefully, needs cues not to slide feet across the floor when using the cane. Stair Training Stair Training: Handrails/: 1 handrail Stairs (FIM): 4 #of Steps: 12 Stairs: Pattern: Step to Level of Assist: 4 CGA, cues for foot placement and safety, did not catch his toes on the edge of the steps this time Exercises sit to stand 3 sets of 10, LAQ alternating for 5 min with 2# ankle weights Neuromuscular cone activity - picking up cone and turning and walking to a stool and setting it on that and then turning again to go lab support technician a cone from the floor, 6 cones x2 Treatments transfers, ambulation, balance training, functional strengthening Assessment Current Status: Fair Progress no dizziness, better stairs, was unsteady with ambulation but no LOB PT Short Term Goals Short Term Goals Time Frame: Aug 13, 2016 Transfers (B,C,W/C) (FIM): 6 Gait (FIM): 5 Distance (FIM): 3=150 ft Gait Distance Comment: 300 Gait Level of Assist: 5 Gait Assistive Device: FWW Stairs (FIM): 4 # of Steps: 12 Stairs Level of Assist: 4 PT Head Of [employer] Goals Usp Goals PT Head Of [employer] Goals Time Frame: Aug 20, 2016 Transfers (B,C,W/C) (FIM): 6 Sit to Lying (QC): 6 Lying-Sitting on Side/Bed(QC): 6 Sit to Stand (QC): 6 Rollin Roll Left to Right (QC): 6 Chair/[id number] Xfer(QC): 6 Car Transfer (QC): 6 Does the Patient Walk: Yes Gait distance (FIM): 3=150 ft Distance: 500 Walk 10 feet (QC): 6 Walk 10ft-Uneven Surface(QC): 6 Walk 50ft with 2 Turns (QC): 6 Walk 150 ft (QC): 6 Gait Level of Assist: 6 Gait Assistive Device: FWW, Cane Single Point Stairs (FIM): 6 # of Steps: 12 1 Step (curb) (QC): 6 4 Steps (QC): 6 12 Steps (QC): 6 Stairs Level Of Assist: 6 Picking up an Object (QC): 6 PT Plan Problem List Problem List: Activity Tolerance, Functional Strength, Safety, Balance, Gait, Transfer Treatment/Plan Treatment Plan: Continue Plan of Care Treatment Plan: Education, Functional Activity [place], Group Therapy, Gait, Safety, Therapeutic Exercise Treatment Duration: Aug 20, 2016 Visits Per Week: 11 Minutes/Day (M-F): 90 Minutes/Day (Sat/[place]): 15 Safety Risks/Education Patient Education: Gait Training, Transfer Techniques, Steps, Correct Positioning, Safety Issues Teaching Recipient: Patient Teaching Methods: Demonstration, Discussion Response to Teaching: Reinforcement Needed Time/GCodes Time In: 800 Time Out: 900 Total Billed Treatment Time: 60 Total Billed Treatment 1 visit GT 30' EX 15' NM 15' DANTE ERVIN PT Aug 09, 2016 08:57
[2016-08-09] MEDS: meTOprolol TARTRATE 25 MG (LOPRESSOR) TABLET PO SCH ×2 (09:15→21:16)
[2016-08-09] MEDS: DIGOXIN 0.25 MG (LANOXIN) TAB PO SCH (09:15)
[2016-08-09] MEDS: ASPIRIN 81 MG CHEW (CHILDREN'S ASA) PO SCH (09:15)
[2016-08-09] MEDS: acetaZOLAMIDE 250 MG (DIAMOX) TAB PO SCH ×2 (09:15→21:15)
--- NOTE | 2016-08-09 09:40 | Cardiology Progress Note ---
Subjective Date Seen by Provider: Aug 09, 2016 Time Seen by Provider: 09:38 Subjective/Events-last exam Patient is in a chair, feeling better, no new complaint, borderline bradycardia Review of Systems General: No Chills, No Night Sweats, No Fatigue, No Malaise, No Appetite, No Other HEENT: No Head Aches, No Visual Changes, No Eye Pain, No Ear Pain, No Dysphasia , No Sinus Congestion, No Post Nasal Drip, No Sore Throat, No Other Pulmonary: No Dyspnea, No Cough, No Pleuritic Chest Pain, No Other Cardiovascular: No: Chest Pain, Edema, Lt Headedness, Orthopnea, Other, Palpitations, Paroxysmal Noc. Dyspnea Objective-Cardiology Exam Last Set of Vital Signs Vital Signs 08/09/16 08/09/16 05:09 07:00 Temp 98.4 Pulse 58 Resp 16 B/P (MAP) 138/74 Pulse Ox 99 O2 Delivery Room Air Capillary Refill : I&O Intake and Output 08/09/16 00:00 Intake Total 400 ml Balance 400 ml Intake Oral 400 ml # Voids 3 General: Alert, Oriented X3, Cooperative HEENT: Atraumatic, PERRLA Neck: Supple, No JVD, No Thyromegaly Lungs: Clear to Auscultation, Normal Air Movement Heart: Regular Rate, Normal S1, Normal S2, No Murmurs Abdomen: Normal Bowel Sounds, Soft Extremities: No Clubbing, No Cyanosis Skin: No Rashes Neuro: Normal Gait A/P-Cardiology Admission Diagnosis Paroxysmal atrial fibrillation DVT/PE Vertigo Ataxia Hypertension Assessment/Plan Paroxysmal atrial fibrillation, underwent electrical cardioversion in [place] and he was unable to maintain sinus rhythm, started on Rythmol and Xarelto, Rythmol was discontinued and dizziness significantly improved. Continue current medications and continue to monitor. Deep venous thrombosis/pulmonary embolism, unprovoked, started on Xarelto. Ataxia, dizziness, dysarthria, worsening symptoms, extensive workup was done at , evaluated by ENT, neurologist, unable to pinpoint the cause of his dizziness. Patient has history of chronic dizziness and strong family history of dizziness but he was able to function previously, since his last hospitalization earlier this month he has been unable to function due to severe vertigo and ataxia with dizziness. Dizziness improved significantly since discontinuing Rythmol. Hypertension, controlled, continue to monitor blood pressure Clinical Quality Measures DVT/VTE Risk/Contraindication: Risk Factor Score Per Nursin RFS Level Per Nursing on Admit: 4+=Very High LUCILA KINCAID MD Aug 09, 2016 09:40
[2016-08-09] MEDS ORDERED: MECL-106 PO (10:35)
[2016-08-09] MEDS ORDERED: ONDA4TAB8 PO (10:35)
[2016-08-09] MEDS ORDERED: DIGO250T6 PO (10:35)
[2016-08-09] MEDS ORDERED: ACET-2267 PO (10:35)
[2016-08-09] MEDS ORDERED: ASPI-999 PO (10:35)
[2016-08-09] MEDS ORDERED: PROP150T2 PO (10:35)
[2016-08-09] MEDS ORDERED: PANT40TA2 PO (10:35)
[2016-08-09] MEDS ORDERED: RIVA20TA PO (10:35)
[2016-08-09] MEDS ORDERED: ACET250T3 PO (10:35)
[2016-08-09] MEDS ORDERED: ATOR40TA PO (10:35)
[2016-08-09] MEDS ORDERED: METO-333 PO (10:35)
[2016-08-09] MEDS ORDERED: RIVA15TA PO ×2 (10:35→10:52)
--- NOTE | 2016-08-09 11:13 | Occupational Ther Daily Note ---
OT Current Status-Daily Note Subjective Pt alert, sitting in recliner. Family present in room. Pt agreed to therapy. No c/o pain at this time. C/o not sleeping well. Mental Status/Objective Patient Orientation: Person, Place, Time, Situation Functional [place] Measure 0=Not Assessed/NA 4=Minimal Assistance 1=Total Assistance 5=Supervision or Setup 2=Maximal Assistance 6=Modified [place] 3=Moderate Assistance 7=Complete [place] Attachments: IV ADL-Treatment Functional [place] Measure 0=Not Assessed/NA 4=Minimal Assistance 1=Total Assistance 5=Supervision or Setup 2=Maximal Assistance 6=Modified [place] 3=Moderate Assistance 7=Complete IndependenceIRFPAI Quality Coding Scale 6 Independent with activity with or without an assistive device 5 Patient requires set up or clean up by helper. Patient completes activity by themselves 4 Supervision or touching assist (CGA). Secretary provide cues , steadying assist 3 The helper provides less than half the effort to complete the activity 2 The helper provides more than half the effort to complete the activity 1 Dependent. The helper does all the effort to complete an activity 7 Patient refused to complete or attempt activity 9 The patient did not perform the activity before the current illness or injury 88 Not attempted due to Medical conditions or safety concerns Grooming (FIM): 6 (Pt stood at sink and completed grooming by self using FWW.) Oral Hygiene (QC): 6 (Pt stood at sink and completed oral care by self using FWW.) Bathing (FIM): 6 (Using shower seat, hand held shower and grabbars pt is able to complete by self.) Bathing Location: L Arm, R Arm, L Upper Leg, R Upper Leg, L Lower Leg ( including foot), R Lower Leg (including foot), Chest, Abdomen, Buttocks, Perineal Area Shower/Bathe Self (QC): 6 Upper Body (FIM): 5 ( retrieved clothing for pt. Pt able to complete upper body dressing by self.) Upper Body Dressing (QC): 5 ( retrieved clothing for pt. Pt able to complete upper body dressing by self.) Lower Body Dressing (FIM): 5 ( retrieved clothing for pt. Pt able to complete lower body dressing by self.) Lower Body Dressing (QC): 5 ( retrieved clothing for pt. Pt able to complete lower body dressing by self.) On/Off Footwear (QC): 5 (Set up required. Pt able to complete donning/doffing footwear by self.) Toileting (FIM): 6 (Using FWW and grabbars pt is able to complete toileting by self.) Toileting Hygiene (QC): 6 (Using FWW and grabbars pt is able to complete toileting by self.) Transfers (B, C, W/C) (FIM): 6 (With safety concerns, pt is able to complete by self.) Toilet/Commode Transfer (FIM): 6 (Using grabbars and FWW, pt is able to complete by self.) Toilet Transfer (QC): 6 (Using FWW and grabbars, pt is able to complete by self.) Shower Transfer(FIM): 6 (Using FWW, grabbars and shower seat completes by self. ) Pt does demonstrate ability to complete ADLs though does have safety concerns. Other Treatment Pt ambulated from room to therapy gym with CGA using FWW. Pt has slight LOB when backing and turning corners. Pt completed arm bike 15 min duration at 20- 25 ledesma resistance (no recovery breaks) to increase strength and activity tolerance for daily functional tasks. Pt ambulated back to room with FWW. After therapy, pt sitting in recliner with call light/phone in reach. All needs met in room. OT Short Term Goals Short Term Goals Time Frame: Aug 14, 2016 Bathing(FIM): 5 Lower Body Dressing(FIM): 5 Transfers (B,C,W/C) (FIM): 6 Toilet/Commode Transfer(FIM): 5 Additional Short Term Goals: 1-Demonstrate ADL Tasks, 2-Verbalize Understanding , 3-ImproveStrength/Elyse 1=Demonstrate adherence to instructed precautions during ADL tasks. 2=Patient will verbalize/demonstrate understanding of assistive devices/ modifications for ADL. 3=Patient will improve strength/tolerance for activity to enable patient to perform ADL's. OT Inspector Heating And Refrigeration Goals [facility] Goals Time Frame: Aug 28, 2016 Eating (FIM): 6 Eating (QC): 6 Groomin Oral Hygiene (QC): 6 Bathing(FIM): 6 Shower/Bathe Self (QC): 6 Upper Body Dressing(FIM): 6 Upper Body Dressing (QC): 6 Lower Body Dressing(FIM): 6 Lower Body Dressing (QC): 6 On/Off Footwear (QC): 6 Toileting(FIM): 6 Toileting Hygiene (QC): 6 Toilet/Commode Transfer(FIM): 6 Toilet/Commode Transfer (QC): 6 Shower Transfer(FIM): 6 Additional Goals: 1-Demonstrate ADL Tasks, 2-Verbalize Understanding, 3- ImproveStrength/Elyse 1=Demonstrate adherence to instructed precautions during ADL tasks. 2=Patient will verbalize/demonstrate understanding of assistive devices/ modifications for ADL. 3=Patient will improve strength/tolerance for activity to enable patient to perform ADL's. OT Education/Plan Problem List/Assessment Pt to benefit from skilled OT intervention for ADL training, transfers, strengthening, and safety education to maximize level of function and allow safe discharge. Discharge Recommendations Plan/Recommendations: Continue POC Treatment Plan/Plan of Care Patient would benefit from OT for education, treatment and training to promote independence in ADL's, mobility, safety and/or upper extremity function for ADL' s. Plan of Care: ADL Retraining, Functional Mobility, Group Exercise/Act as Ind, UE Funct Exercise/Act, UE Neuromus Re-Ed/Coord Treatment Duration: Aug 28, 2016 Visits Per Week: 10-12 Minutes/Day (M-F): 60-90 Minutes/Day (Sat/Collier): PRN Agreement: Yes Rehab Potential: Good Time/GCodes Start Time: 07:00 Stop Time: 08:00 Total Time Billed (hr/min): 60 Billed Treatment Time 1 visit-ADL 3 (40 min) EX 1 (20 min) MACK [place]MING[place] Aug 09, 2016 11:13
--- NOTE | 2016-08-09 11:51 | ST Cognitive Linguistic Eval ---
Speech Evaluation-General Medical Diagnosis cerebellar ataxia Onset Date: Jul 23, 2016 Therapy Diagnosis Therapy Diagnosis: Cognitive Linguistic Skills WFL Precautions Precautions/Isolations: Standard Precautions Referral Referring Physician: Dr. Reinier Boyle Reason for Referral: Evaluation/Treatment Cognitive Evaluation Medical History Pertinent Medical History: Atrial Fib, Thrombosis Reviewed History: Yes Social History Current Living Status: Spouse Speech PLF-Current Status Prior Level of Function The patient denied any previous or current challenges with speech, language, or cognition. 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 The patient greeted the clinician appropriately and was agreeable to participation in the cognitive evaluation. Language Eval: Auditory Comprehends Simple Yes/No Ques: Functional Indent/Objects Multiple Singh: Functional Ident/Pics in Multiple Singh: Functional Follows 1-Step Commands: Functional Follows Complex Directions: Functional Follows General Conversations: Functional Language Eval: Verbal Language Completes Spontaneous Greeting: Functional Produces Auto, Serial Info: Functional Imitates Simple Words/Phrases: Functional Word Finding: Functional Requests Basic Needs: Functional States Basic Personal Info: Functional Expresses Complex Ideas: Functional Cognitive Patient Orientation The patient was oriented to month, day of week, date, and year (independently). Objective Cognitive Domain Attention: WNL Memory: WNL Problem Solving: Functional Objective Impression The patient demonstrated cognitive linguistic skills WNL and appropriate for completion of ADL's. Communication/Social Cognition Comprehension: 6 Expression: 6 Social Interaction: 6 Problem Solvin Memory: 6 Speech Patient Assess Expression of Ideas/Wants: Expression (4) Understanding Vebal Content: Understands (4) Brief Interview-Mental Status: Yes Repetition of Three Words: Three (3) Temporal Orientation: Year: Correct (3) Temporal Orientation: Month: Accurate within 5 days(2) Temporal Orientation: Day: Correct (1) Recall : Wear to say "Sock": Yes, no cue required (2) Recall : Color: Yes, no cue required (2) Recall : Bed: Yes, no cue required (2) Speech-Plan Treatment Plan Speech Therapy Treatment Plan: Discontinue ST Evaluation, only. Rehab Potential: Good Safety Risks/Education Teaching Recipient: Patient Teaching Methods: Discussion Response to Teaching: Verbalize Understanding Education Topics Provided: Results, Plan of Care, Recommendations Time Speech Therapy Time In: 11:00 Speech Therapy Time Out: 11:15 Total Billed Time: 15 Billed Treatment Time 1, SPSNDCOMP MICHELE,CARMINA ST Aug 09, 2016 11:51
--- NOTE | 2016-08-09 14:58 | Therapy Group Daily Note ---
Therapy Daily Group Note Patient Education Topic Home Safety Exercises LE Seated Exercise, UE Exercise Other/Notes Pt ambulated to OT/PT group with CGA using FWW. OT/PT group consisted of introductions (name, place living, first $ earned), socialization, UE/LE seated exercises, home safety, adaptive equipment, and problem solving photos of unsafe situations around the home. Pt was able to introduce self appropriately. Pt contributed to each discussion and verbalized understanding of home safety and the use of adaptive equipment. Pt was able to participate fulling in UE/LE seated exercises. Pt ambulated with FWW back to room. After group, pt sitting in recliner with call light/phone in reach. Family present in room. All needs met in room. Start Time: 13:00 Stop Time: 14:15 Total Billed Treatment Time: 75 Total Billed Treatment 1-GRP MACK [place] Aug 09, 2016 14:58
--- OUTSIDE RECORDS SUMMARY | 2016-08-09 15:34 | XMS REPORT | Continuity of Care Document ---
Author Author [facility] Address Unknown Phone Unavailable Care Team Providers Care Meter Mechanic Name Role Phone Database, Physician Not In PCP Unavailable Source Comments Some departments are not documenting in the electronic medical record. If you do not see the information that you expected, contact Release of Information in the Health Information Management department at [phone] for further assistance in locating additional records.[facility] Active Allergies and Adverse Reactions Allergen Noted Date Severity Reactions Comments Acetaminophen 08/03/2016 Medium RASH Current Medications Prescription Sig. Disp. Refills Start End Date Status Date acetaminophen (TYLENOL) Take 500 mg by mouth Active 500 mg tablet every 6 hours as needed for Pain. Max of 4,000 mg of acetaminophen in 24 hours. atorvastatin (LIPITOR) 40 Take 1 Tab by mouth at 08/07/19 Active mg tablet bedtime daily. 17 Indications: HYPERLIPIDEMIA aspirin 81 mg chewable Chew 1 Tab by mouth 08/07/19 Active tablet daily. Take with food. 17 acetaZOLAMIDE (DIAMOX) Take 2 Tabs by mouth 08/07/19 Active 250 mg tablet twice daily. 17 vitamins, multiple cap Take 1 Cap by mouth Active daily. digoxin (LANOXIN) 250 mcg Take 250 mcg by mouth Active tablet daily. pantoprazole DR Take 40 mg by mouth twice Active (PROTONIX) 40 mg tablet daily. propafenone (RYTHMOL) 150 Take 150 mg by mouth Active mg tablet every 8 hours. metoprolol tartrate Take 12.5 mg by mouth Active (LOPRESSOR) 25 mg tablet twice daily. ondansetron (ZOFRAN ODT) Dissolve 4 mg by mouth Active 4 mg rapid dissolve every 8 hours as needed tablet for Nausea or Vomiting. Place on tongue to disolve. meclizine (ANTIVERT) 25 Take 25 mg by mouth four Active mg tablet times daily as needed. rivaroxaban (XARELTO) 15 Take 1 Tab by mouth twice 08/07/19 Active mg tablet daily. Take with food. 17 Starting 08/07 take 20mg once daily rivaroxaban (XARELTO) 15 Take 15 mg by mouth twice 08/07/19 Discontin mg tablet daily. Take with food. 17 ued aspirin EC 325 mg tablet Take 325 mg by mouth 08/07/19 Discontin daily. Take with food. 17 ued bisacodyl (DULCOLAX) 10 Insert or Apply 10 mg to 08/07/19 Discontin mg rectal suppository rectal area as directed 17 ued as Needed. milk of magnesia (CONC) Take 30 mL by mouth as 08/07/19 Discontin 2,400 mg/10 mL oral Needed for Heartburn. 17 ued suspension SODIUM Insert or Apply to 08/07/19 Discontin PHOSPHATE,MONO-DIBASIC rectal area as directed 17 ued (FLEET ENEMA RE) as Needed. traMADol (ULTRAM) 50 mg Take 50 mg by mouth every 08/07/19 Discontin tablet 4 hours as needed for 17 ued Pain. 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 Ataxia 08/03/2016 Most Recent Encounters Date Type Specialty Providers Description 08/05/2016 Orders Only Neurology Eduar Lawrence MD Ataxia (Primary Dx ) 08/04/2016 Screening Form 08/04/2016 Screening Form 08/04/2016 Screening Form 08/04/2016 Screening Form 08/03/2016 [facility] Declan Johnson MD Episodic ataxia (HCC) - Encounter 08/06/2016 Social History Tobacco Use Types Packs/Day Years Used Date Former Smoker Alcohol Use Drinks/Week oz/Week Comments Yes 10 Standard 6.0 drinks or equivalent Last Filed Vital Signs Vital Sign Reading Time Taken Blood Pressure 121/81 08/06/2016 1:52 PM CDT Pulse 57 08/06/2016 1:52 PM CDT Temperature 36.8 C (98.2 F) 08/06/2016 1:52 PM CDT Respiratory Rate - - Height 1.803 m (5' 11") 08/05/2016 2:03 PM CDT Weight 97.977 kg (216 lb) 08/05/2016 2:03 PM CDT Body Mass Index 30.14 08/05/2016 2:03 PM CDT Oxygen Saturation 98% 08/06/2016 1:52 PM CDT Plan of Care Health Maintenance Due Date Last Done Comments Hepatitis C Screening 1955 Physical (Comprehensive) 02/25/1963 Exam Pertussis Vaccine 02/25/1967 Tetanus Vaccine 02/25/1973 Colorectal Cancer 02/25/2006 Screening Shingles Vaccine 2016 Influenza Vaccine 10/15/2016 Results from Last 3 Months * COMPREHENSIVE METABOLIC PANEL (08/06/2016 4:56 AM) Only the most recent of 4 results within the time period is included. Component Value Range Sodium 135 (L) 137-147 MMOL/L Potassium 4.4 3.5-5.1 MMOL/L Chloride 103 98-110 MMOL/L Glucose 108 (H) 70-100 MG/DL Blood Urea Nitrogen 22 7-25 MG/DL Creatinine 1.21 0.4-1.24 MG/DL Calcium 10.0 8.5-10.6 MG/DL Total Protein 7.5 6.0-8.0 G/DL Total Bilirubin 0.6 0.3-1.2 MG/DL Albumin 3.6 3.5-5.0 G/DL Alk Phosphatase 101 25-110 U/L AST (SGOT) 31 7-40 U/L CO2 24 21-30 MMOL/L ALT (SGPT) 50 7-56 U/L Anion Gap 8 3-12 eGFR Non >60Comment: >60 mL/min The eGFR is not validated for use in drug dosing adjustments. Continue to use estimated creatinine clearance per dosing reference text. Please contact the Clinical Pharmacist for questions. eGFR >60Comment: >60 mL/min The eGFR is not validated for use in drug dosing adjustments. Continue to use estimated creatinine clearance per dosing reference text. Please contact the Clinical Pharmacist for questions. Specimen Blood * CBC AND DIFF (08/06/2016 4:56 AM) Only the most recent of 4 results within the time period is included. Component Value Range White Blood Cells 8.8 4.5-11.0 K/UL RBC 4.59 4.4-5.5 M/UL Hemoglobin 13.3 (L) 13.5-16.5 GM/DL Hematocrit 38.6 (L) 40-50 % MCV 84.2 80-100 FL MCH 28.9 26-34 PG MCHC 34.3 32.0-36.0 G/DL RDW 14.0 11-15 % Platelet Count 370 150-400 K/UL MPV 7.4 7-11 FL Neutrophils 71 41-77 % Lymphocytes 13 (L) 24-44 % Monocytes 8 4-12 % Eosinophils 8 (H) 0-5 % Basophils 0 0-2 % Absolute Neutrophil Count 6.20 1.8-7.0 K/UL Absolute Lymph Count 1.10 1.0-4.8 K/UL Absolute Monocyte Count 0.70 0-0.80 K/UL Absolute Eosinophil Count 0.70 (H) 0-0.45 K/UL Absolute Basophil Count 0.00 0-0.20 K/UL Specimen Blood * MRI L-SPINE WO/W CONTRAST (08/06/2016 3:23 AM) Impressions Minimal degenerative changes throughout the lumbar spine without significant central spinal or neuroforaminal narrowing. Approved by Ching Spring M.D. on 08/06/2016 9:33 AM By my electronic signature, I attest that I have personally reviewed the images for this examination and formulated the interpretations and opinions expressed in this report Finalized by Miguelito Cramer M.D. on 08/06/2016 11:51 AM. Dictated by Ching Spring M.D. on 08/06/2016 7:14 AM. Narrative EXAM: MRI L-SPINE HISTORY: Episodic ataxia, worst with micturition. Technique: Multiple sagittal and axial MR sequences were obtained of the lumbar spine with and without MultiHance contrast. Comparison: CT abdomen/pelvis from August 04, 2016 FINDINGS: Dr. Miguelito Cramer M.D. has personally reviewed these images and formulated the interpretations and opinions expressed in this report. There is normal lumbar alignment. The vertebral body heights are maintained. There is normal marrow signal.The conus is normal in appearance and position at the L1 level. There is no significant central or neural foraminal narrowing. No abnormal enhancing lesion is identified. There is mild multilevel disc degeneration and facet arthropathy throughout the lumbar spine without significant central spinal or neuroforaminal stenosis. Prominent Schmorl's node is noted along the inferior endplate of L2. The paraspinous soft tissues are unremarkable. Procedure Note Interface, Radiant Results - TueAug 06, 2016 11:54 AM CDT EXAM: MRI L-SPINE HISTORY: Episodic ataxia, worst with micturition. Technique: Multiple sagittal and axial MR sequences were obtained of the lumbar spine with and without MultiHance contrast. Comparison: CT abdomen/pelvis from August 04, 2016 FINDINGS: Dr. Miguelito Cramer M.D. has personally reviewed these images and formulated the interpretations and opinions expressed in this report. There is normal lumbar alignment. The vertebral body heights are maintained. There is normal marrow signal. The conus is normal in appearance and position at the L1 level. There is no significant central or neural foraminal narrowing. No abnormal enhancing lesion is identified. There is mild multilevel disc degeneration and facet arthropathy throughout the lumbar spine without significant central spinal or neuroforaminal stenosis. Prominent Schmorl's node is noted along the inferior endplate of L2. The paraspinous soft tissues are unremarkable. IMPRESSION Minimal degenerative changes throughout the lumbar spine without significant central spinal or neuroforaminal narrowing. Approved by Ching Spring M.D. on 08/06/2016 9:33 AM By my electronic signature, I attest that I have personally reviewed the images for this examination and formulated the interpretations and opinions expressed in this report Finalized by Miguelito Cramer M.D. on 08/06/2016 11:51 AM. Dictated by Ching Spring M.D. on 08/06/2016 7:14 AM. * IR LUMBAR PUNCTURE (08/05/2016 3:12 PM) Impressions 1. Fluoroscopic guided lumbar puncture, as described. 2. The opening cerebral spinal fluid pressure was 5 cm of water. 3. 12 ml of CSF collected. Approved by Ken Stafford M.D. on 08/05/2016 3:57 PM By my electronic signature, I attest that I have personally reviewed the images for this examination and formulated the interpretations and opinions expressed in this report Finalized by Medardo Conley M.D. on 08/05/2016 4:15 PM. Dictated by Ken Stafford M.D. on 08/05/2016 3:55 PM. Narrative Fluoroscopic guided lumbar puncture with pressure measurements Clinical History: Cerebellar ataxia, history of testicular cancer - concern for autoimmune, post-infectious or para-neoplastic etiologies Migration Specialist: Enedina Newell M.D. Total fluoroscopy dose: 4 mGy. Medications: Local lidocaine Technique and Findings: I, Dandre M. Jarvis, M.D, the attending radiologist, was present for the critical and apodaca portions of the procedure with a midlevel, resident, and/or fellow participating.Overlapping portions were non apodaca and I was immediately available.I interpret the critical and apodaca portion of this procedure to have been needle access. The patient was brought to the fluoroscopy suite and placed on the examination table in a prone position. The lower back was then prepped and draped in the usual standard sterile fashion. 2% lidocaine was used for local anesthesia. Utilizing fluoroscopy guidance, a 20 gauge spinal needle was advanced into the intrathecal sac at the level of L4-L5 Position was confirmed by return of cerebral spinal fluid, which was clear. The patient was then placed in the left lateral decubitus position and opening cerebrospinal fluid pressures were obtained, which measured 5 cm of water. Next, approximately 12 ml of cerebral spinal fluid was collected and sent to the laboratory for requested laboratory studies. The needle was then removed and adequate hemostasis was achieved. The patient tolerated procedure without complications and left the department in stable condition after appropriate monitoring. Procedure Note Interface, Radiant Results - [facility] Aug 05, 2016 4:18 PM CDT Fluoroscopic guided lumbar puncture with pressure measurements Clinical History: Cerebellar ataxia, history of testicular cancer - concern for autoimmune, post-infectious or para-neoplastic etiologies Migration Specialist: Ken Stafford M.D. and Medardo Conley M.D. Total fluoroscopy dose: 4 mGy. Medications: Local lidocaine Technique and Findings: Dandre Gonzalez M.D, the attending radiologist, was present for the critical and apodaca portions of the procedure with a midlevel, resident, and/or fellow participating. Overlapping portions were non apodaca and I was immediately available. I interpret the critical and apodaca portion of this procedure to have been needle access. The patient was brought to the fluoroscopy suite and placed on the examination table in a prone position. The lower back was then prepped and draped in the usual standard sterile fashion. 2% lidocaine was used for local anesthesia. Utilizing fluoroscopy guidance, a 20 gauge spinal needle was advanced into the intrathecal sac at the level of L4-L5 Position was confirmed by return of cerebral spinal fluid, which was clear. The patient was then placed in the left lateral decubitus position and opening cerebrospinal fluid pressures were obtained, which measured 5 cm of water. Next, approximately 12 ml of cerebral spinal fluid was collected and sent to the laboratory for requested laboratory studies. The needle was then removed and adequate hemostasis was achieved. The patient tolerated procedure without complications and left the department in stable condition after appropriate monitoring. IMPRESSION 1. Fluoroscopic guided lumbar puncture, as described. 2. The opening cerebral spinal fluid pressure was 5 cm of water. 3. 12 ml of CSF collected. Approved by Ken Stafford M.D. on 08/05/2016 3:57 PM By my electronic signature, I attest that I have personally reviewed the images for this examination and formulated the interpretations and opinions expressed in this report Finalized by Medardo Conley M.D. on 08/05/2016 4:15 PM. Dictated by Ken Stafford M.D. on 08/05/2016 3:55 PM. * OLIGOCOLONAL BANDS-CSF (08/05/2016 3:01 PM) Component Value Range Serum Bands 3Comment: Unit: bands [facility] CSF Bands 3Comment: Unit: bands [facility] CSF Oligo Bands 0Comment: Interpretation Reference range: <4 Unit: bands The oligoclonal band assay detected 3 or fewer unique IgG bands in the CSF. This is a negative result. [facility] * IGG INDEX (CSF & SERUM) (08/05/2016 3:01 PM) Component Value Range IgG Serum 1020 MG/DL Albumin, Serum IGG 3180 MG/DL IgG CSF 2.8 MG/DL Albumin IGG, CSF 19.1 MG/DL IgG Index 0.46 0.3-0.6 IgG Synthesis Rate [id number]_3.31 NORMAL RANGE NEG 9.9 TO 3.3 Specimen Cerebrospinal fluid - Cerebrospinal Fluid * GRAM STAIN (08/05/2016 3:01 PM) Component Value Range Battery Name GRAM STAIN Specimen Description CSF Special Requests NONE Gram Stain FEW NEUTROPHILS FEW RBC'S NO ORGANISMS SEEN Report Status FINAL 08/05/2016 Specimen Cerebrospinal Fluid * CULTURE-CSF W/SENSITIVITY (08/05/2016 3:01 PM) Component Value Range Battery Name CSF CULTURE Specimen Description CSF Special Requests NONE Direct Gram Stain FEW NEUTROPHILS FEW RBC'S NO ORGANISMS SEEN Culture NO GROWTH 3 DAYS Report Status FINAL 08/08/2016 Specimen Cerebrospinal fluid - Cerebrospinal Fluid * CSF TUBE VOLUMES (08/05/2016 2:11 PM) Component Value Range CSF Tube 1 2.8 mL CSF Tube 2 3.0 mL CSF Tube 3 2.9 mL CSF Tube 4 2.9 mL * [id number] (08/05/2016 2:11 PM) Component Value Range Source CSF [facility] B. burgdorferi PCR Negative Reference range: Negative [facility] B. mayonii PCR Negative Reference range: Negative [facility] B. garinii/B. afzelii PCR Negative Reference range: Negative [facility] Lyme CSF Comment If clinical features of illness are highly indicative of Lyme neuroborreliosis, additional serological testing would be recommended. ADDITIONAL INFORMATION This test was developed and its performance characteristics determined by [facility] in a manner consistent with CLIA requirements. This test has not been cleared or approved by the U.S. Food and Drug Administration. [facility] * LYME IGG/IGM-CSF (08/05/2016 2:11 PM) Component Value Range Lyme IgG,CSF None Detected Reference range: None Detected Unit: bands [facility], [address] [place] [address] No bands detected Unit: kDa [facility], [address] [place] [address] Lyme IgM,CSF None Detected Reference range: None Detected Unit: bands [facility], [address] [place] [address] No bands detected Unit: kDa ADDITIONAL INFORMATION This test was developed and its performance characteristics determined by [facility] in a manner consistent with CLIA requirements. This test has not been cleared or approved by the U.S. Food and Drug Administration. [facility], [address] [place] [address] Specimen Cerebrospinal fluid - Cerebrospinal Fluid * CELL COUNT W/DIFF-CSF (08/05/2016 2:11 PM) Component Value Range Cell Count Tube,CSF TUBE 4 White Blood Cells,CSF 1 <5 /UL Red Blood Cells,CSF 0 /UL Neutrophils, CSF 20 % Lymphocytes, CSF 40 % Monocyte/Hisotocyte, CSF 40 % Clarity,CSF CLEAR Path Interpretation, CSF NO DIAGNOSTIC ABNORMALITIES Pathologist Signature INTERPRETED BY EUGENE GONZÁLES M.D. By the PATH SIGNATURE ABOVE, I attest that I have personally formulated the final interpretation expressed in this report and that the above diagnosis is based upon my examination of the slides and/or other material indicated in this report. Specimen Cerebrospinal fluid - Cerebrospinal Fluid * TOTAL PROTEIN-CSF (08/05/2016 2:11 PM) Component Value Range Total Protein,CSF 47 (H) 15-45 MG/DL Specimen Cerebrospinal fluid - Cerebrospinal Fluid * GLUCOSE-CSF (08/05/2016 2:11 PM) Component Value Range Glucose,CSF 52 40-75 MG/DL Xanthrochromia,CSF NONE Specimen Cerebrospinal fluid - Cerebrospinal Fluid * MRI T-SPINE WO/W CONTRAST (08/05/2016 3:19 AM) Impressions Cervical spine: 1.Motion limited examination with mild cervical spondylosis greatest at C3- C4 and C4-C5 where there is mild spinal canal narrowing as well as right C3-C4 and bilateral C4-C5 mild neural foraminal narrowing. 2.No abnormal cord signal or enhancement. Thoracic spine: 1.Motion limited examination without spinal canal or neural foraminal narrowing. 2.No definite abnormal cord signal or enhancement. Finalized by KELLI ZIMMERMAN M.D. on 08/05/2016 8:47 AM. Dictated by KELLI ZIMMERMAN M.D. on 08/05/2016 8:39 AM. Narrative MRI C-SPINE WO/W CONTRAST, MRI T-SPINE WO/W CONTRAST Clinical indication: ataxia, episodic, worse with micturition. Technique: Pre and postcontrast MRI of the cervical and thoracic spine was performed. Contrast: 18 mL of MultiHance Comparison: None Findings: These examinations are limited by repetitive patient motion. Cervical spine: There is normal cervical curvature and alignment. The vertebral body heights are well-maintained without a suspicious geographic marrow lesion. There is a small Schmorl's node within the superior endplate of C7 with mild surrounding edema. There is multilevel disc degeneration greatest at C3-C4. The cervical cord is normal course, caliber, and signal. There is no abnormal enhancement. The prevertebral and paraspinal soft tissues are unremarkable. C2-C3: No spinal canal or neural foraminal narrowing. C3-C4: There is a broad-based posterior disc osteophyte complex results in mild spinal canal narrowing. Uncovertebral ridging and facet arthropathy results in mild right neural foraminal narrowing. C4-C5: There is a small posterior disc osteophyte complex results in mild spinal canal narrowing. Uncovertebral ridging and facet arthropathy results in mild bilateral neural foraminal narrowing. C5-C6: No spinal canal narrowing. Uncovertebral ridging and facet arthropathy results in mild right neural foraminal narrowing. C6-C7: No spinal canal or neural foraminal narrowing. C7-T1: No spinal canal or neural foraminal narrowing. Thoracic spine: There is normal thoracic curvature and alignment. The vertebral body heights are well-maintained without a suspicious geographic marrow lesion. The thoracic cord is grossly normal in course, caliber, and signal. No abnormal enhancement is identified. There are no areas of spinal canal or neural foraminal narrowing. The prevertebral and paraspinal soft tissues show a trace right sided pleural effusion. Procedure Note Interface, Radiant Results - [facility] Aug 05, 2016 8:51 AM CDT MRI C-SPINE WO/W CONTRAST, MRI T-SPINE WO/W CONTRAST Clinical indication: ataxia, episodic, worse with micturition. Technique: Pre and postcontrast MRI of the cervical and thoracic spine was performed. Contrast: 18 mL of MultiHance Comparison: None Findings: These examinations are limited by repetitive patient motion. Cervical spine: There is normal cervical curvature and alignment. The vertebral body heights are well-maintained without a suspicious geographic marrow lesion. There is a small Schmorl's node within the superior endplate of C7 with mild surrounding edema. There is multilevel disc degeneration greatest at C3-C4. The cervical cord is normal course, caliber, and signal. There is no abnormal enhancement. The prevertebral and paraspinal soft tissues are unremarkable. C2-C3: No spinal canal or neural foraminal narrowing. C3-C4: There is a broad-based posterior disc osteophyte complex results in mild spinal canal narrowing. Uncovertebral ridging and facet arthropathy results in mild right neural foraminal narrowing. C4-C5: There is a small posterior disc osteophyte complex results in mild spinal canal narrowing. Uncovertebral ridging and facet arthropathy results in mild bilateral neural foraminal narrowing. C5-C6: No spinal canal narrowing. Uncovertebral ridging and facet arthropathy results in mild right neural foraminal narrowing. C6-C7: No spinal canal or neural foraminal narrowing. C7-T1: No spinal canal or neural foraminal narrowing. Thoracic spine: There is normal thoracic curvature and alignment. The vertebral body heights are well-maintained without a suspicious geographic marrow lesion. The thoracic cord is grossly normal in course, caliber, and signal. No abnormal enhancement is identified. There are no areas of spinal canal or neural foraminal narrowing. The prevertebral and paraspinal soft tissues show a trace right sided pleural effusion. IMPRESSION Cervical spine: 1. Motion limited examination with mild cervical spondylosis greatest at C3- C4 and C4-C5 where there is mild spinal canal narrowing as well as right C3-C4 and bilateral C4-C5 mild neural foraminal narrowing. 2. No abnormal cord signal or enhancement. Thoracic spine: 1. Motion limited examination without spinal canal or neural foraminal narrowing. 2. No definite abnormal cord signal or enhancement. Finalized by KELLI ZIMMERMAN M.D. on 08/05/2016 8:47 AM. Dictated by KELLI ZIMMERMAN M.D. on 08/05/2016 8:39 AM. * MRI C-SPINE WO/W CONTRAST (08/05/2016 3:19 AM) Impressions Cervical spine: 1.Motion limited examination with mild cervical spondylosis greatest at C3- C4 and C4-C5 where there is mild spinal canal narrowing as well as right C3-C4 and bilateral C4-C5 mild neural foraminal narrowing. 2.No abnormal cord signal or enhancement. Thoracic spine: 1.Motion limited examination without spinal canal or neural foraminal narrowing. 2.No definite abnormal cord signal or enhancement. Finalized by KELLI ZIMMERMAN M.D. on 08/05/2016 8:47 AM. Dictated by KELLI ZIMMERMAN M.D. on 08/05/2016 8:39 AM. Narrative MRI C-SPINE WO/W CONTRAST, MRI T-SPINE WO/W CONTRAST Clinical indication: ataxia, episodic, worse with micturition. Technique: Pre and postcontrast MRI of the cervical and thoracic spine was performed. Contrast: 18 mL of MultiHance Comparison: None Findings: These examinations are limited by repetitive patient motion. Cervical spine: There is normal cervical curvature and alignment. The vertebral body heights are well-maintained without a suspicious geographic marrow lesion. There is a small Schmorl's node within the superior endplate of C7 with mild surrounding edema. There is multilevel disc degeneration greatest at C3-C4. The cervical cord is normal course, caliber, and signal. There is no abnormal enhancement. The prevertebral and paraspinal soft tissues are unremarkable. C2-C3: No spinal canal or neural foraminal narrowing. C3-C4: There is a broad-based posterior disc osteophyte complex results in mild spinal canal narrowing. Uncovertebral ridging and facet arthropathy results in mild right neural foraminal narrowing. C4-C5: There is a small posterior disc osteophyte complex results in mild spinal canal narrowing. Uncovertebral ridging and facet arthropathy results in mild bilateral neural foraminal narrowing. C5-C6: No spinal canal narrowing. Uncovertebral ridging and facet arthropathy results in mild right neural foraminal narrowing. C6-C7: No spinal canal or neural foraminal narrowing. C7-T1: No spinal canal or neural foraminal narrowing. Thoracic spine: There is normal thoracic curvature and alignment. The vertebral body heights are well-maintained without a suspicious geographic marrow lesion. The thoracic cord is grossly normal in course, caliber, and signal. No abnormal enhancement is identified. There are no areas of spinal canal or neural foraminal narrowing. The prevertebral and paraspinal soft tissues show a trace right sided pleural effusion. Procedure Note Interface, Radiant Results - [facility] Aug 05, 2016 8:51 AM CDT MRI C-SPINE WO/W CONTRAST, MRI T-SPINE WO/W CONTRAST Clinical indication: ataxia, episodic, worse with micturition. Technique: Pre and postcontrast MRI of the cervical and thoracic spine was performed. Contrast: 18 mL of MultiHance Comparison: None Findings: These examinations are limited by repetitive patient motion. Cervical spine: There is normal cervical curvature and alignment. The vertebral body heights are well-maintained without a suspicious geographic marrow lesion. There is a small Schmorl's node within the superior endplate of C7 with mild surrounding edema. There is multilevel disc degeneration greatest at C3-C4. The cervical cord is normal course, caliber, and signal. There is no abnormal enhancement. The prevertebral and paraspinal soft tissues are unremarkable. C2-C3: No spinal canal or neural foraminal narrowing. C3-C4: There is a broad-based posterior disc osteophyte complex results in mild spinal canal narrowing. Uncovertebral ridging and facet arthropathy results in mild right neural foraminal narrowing. C4-C5: There is a small posterior disc osteophyte complex results in mild spinal canal narrowing. Uncovertebral ridging and facet arthropathy results in mild bilateral neural foraminal narrowing. C5-C6: No spinal canal narrowing. Uncovertebral ridging and facet arthropathy results in mild right neural foraminal narrowing. C6-C7: No spinal canal or neural foraminal narrowing. C7-T1: No spinal canal or neural foraminal narrowing. Thoracic spine: There is normal thoracic curvature and alignment. The vertebral body heights are well-maintained without a suspicious geographic marrow lesion. The thoracic cord is grossly normal in course, caliber, and signal. No abnormal enhancement is identified. There are no areas of spinal canal or neural foraminal narrowing. The prevertebral and paraspinal soft tissues show a trace right sided pleural effusion. IMPRESSION Cervical spine: 1. Motion limited examination with mild cervical spondylosis greatest at C3- C4 and C4-C5 where there is mild spinal canal narrowing as well as right C3-C4 and bilateral C4-C5 mild neural foraminal narrowing. 2. No abnormal cord signal or enhancement. Thoracic spine: 1. Motion limited examination without spinal canal or neural foraminal narrowing. 2. No definite abnormal cord signal or enhancement. Finalized by KELLI ZIMMERMAN M.D. on 08/05/2016 8:47 AM. Dictated by KELLI ZIMMERMAN M.D. on 08/05/2016 8:39 AM. * MRI HEAD WO/W CONTRAST (08/05/2016 3:19 AM) Impressions 1.Motion limited examination. No evidence of intracranial metastatic disease , recent infarct, or intracranial hemorrhage. 2.Moderate supratentorial white matter FLAIR hyperintensities most likely chronic microvascular ischemic changes. Finalized by KELLI ZIMMERMAN M.D. on 08/05/2016 8:39 AM. Dictated by KELLI ZIMMERMAN M.D. on 08/05/2016 8:35 AM. Narrative MRI HEAD WO/W CONTRAST Clinical indication: episodic ataxia and vertigo, h/o testicular CA. Technique: Pre and postcontrast MRI of the brain was performed. Contrast: 18 mL of MultiHance Comparison: None Findings: This examination is limited by repetitive patient movement. Brain parenchyma is normal in volume for age. There are moderate supratentorial white matter FLAIR hyperintensities. There is no evidence of recent infarct or intracranial hemorrhage. There are no enhancing lesions to suggest intracranial metastatic disease. The calvarium and skull base marrow is normal in signal. The major intracranial flow voids are preserved. The globes and orbits appear normal. The paranasal sinuses and mastoid air cells are clear. Procedure Note Interface, Radiant Results - [facility] Aug 05, 2016 8:42 AM CDT MRI HEAD WO/W CONTRAST Clinical indication: episodic ataxia and vertigo, h/o testicular CA. Technique: Pre and postcontrast MRI of the brain was performed. Contrast: 18 mL of MultiHance Comparison: None Findings: This examination is limited by repetitive patient movement. Brain parenchyma is normal in volume for age. There are moderate supratentorial white matter FLAIR hyperintensities. There is no evidence of recent infarct or intracranial hemorrhage. There are no enhancing lesions to suggest intracranial metastatic disease. The calvarium and skull base marrow is normal in signal. The major intracranial flow voids are preserved. The globes and orbits appear normal. The paranasal sinuses and mastoid air cells are clear. IMPRESSION 1. Motion limited examination. No evidence of intracranial metastatic disease , recent infarct, or intracranial hemorrhage. 2. Moderate supratentorial white matter FLAIR hyperintensities most likely chronic microvascular ischemic changes. Finalized by KELLI ZIMMERMAN M.D. on 08/05/2016 8:39 AM. Dictated by KELLI ZIMMERMAN M.D. on 08/05/2016 8:35 AM. * PHOSPHORUS (08/04/2016 5:15 PM) Component Value Range Phosphorus 3.2 2.0-4.0 MG/DL Specimen Blood * MAGNESIUM (08/04/2016 5:15 PM) Component Value Range Magnesium 2.2 1.6-2.6 mg/dL Specimen Blood * LACTIC ACID(LACTATE) (08/04/2016 11:33 AM) Component Value Range Lactic Acid 0.9 0.5-2.0 MMOL/L Specimen Blood * AMMONIA (08/04/2016 11:33 AM) Component Value Range Ammonia 40 (H) 9-35 MCMOL/L Specimen Blood * ANTI-NUCLEAR AB(SHARYN)-QUANT (08/04/2016 6:02 AM) Component Value Range SHARYN Titer/Pattern 80 (H)Comment: SPECKLED <80 * THYROID STIMULATING HORMONE-TSH (08/04/2016 6:02 AM) Component Value Range TSH 5.149 (H) 0.35-5.00 MCU/ML * DIGOXIN LEVEL (08/04/2016 6:02 AM) Component Value Range Digoxin 1.0 0.5-1.0 NG/ML * FOLATE, SERUM (08/04/2016 6:02 AM) Component Value Range Serum Folate 13.4Comment: NOTE NEW REFERENCE RANGES >3.9 NG/ML Specimen Blood * VITAMIN B12 (08/04/2016 6:02 AM) Component Value Range Vitamin B12 342 180-914 PG/ML Specimen Blood * SYPHILIS AB SCREEN (08/04/2016 6:02 AM) Component Value Range Syphilis AB, Total NEGComment: NEG-NEG Negative EIA: Negative results indicate no past or present syphilis infection. Early infection can not be excluded. Specimen Blood * THYROGLOBULIN AB (08/04/2016 6:02 AM) Component Value Range Thyroglobulin Ab 4.14 (H) <4.11 IU/ML Specimen Blood * ANTI-THYROPEROXIDASE (MICROSOMAL)AB (08/04/2016 6:02 AM) Component Value Range Microsomal AB, TPO <3.00 <5.61 IU/ML Specimen Blood * C REACTIVE PROTEIN (CRP) (08/04/2016 6:02 AM) Component Value Range C-Reactive Protein 3.87 (H) <1.0 MG/DL Specimen Blood * SED RATE (08/04/2016 6:02 AM) Component Value Range Sed Rate -ESR 74 (H) 0-20 MM/HR Specimen Blood * ANTI-NUCLEAR ANTIBODY(SHARYN) (08/04/2016 6:02 AM) Component Value Range SHARYN Screen SEE TITER <80 TITER Specimen Blood * CT ABD/PELV W CONTRAST (08/04/2016 4:33 AM) Impressions CHEST: 1. Mild mediastinal and bilateral hilar lymphadenopathy which is indeterminate and may reflect yvonne metastatic disease or be reactive in nature. PET imaging may be beneficial for further evaluation given clinical concern for occult malignancy. 2. Small to moderate, partially loculated right pleural effusion with subjacent right lower lobe patchy airspace consolidation which may reflect pneumonia. Clinical correlation is suggested. No discrete pulmonary mass is identified. Imaging follow-up is recommended as clinically warranted. 3. Mild emphysema. 4. Tiny right middle lobe nodular opacity which likely reflects an ectatic vessel or scar when correlating with reformatted imaging. ABDOMEN AND PELVIS: 1. No enlarged abdominopelvic lymph nodes, inflammatory mass, or ascites. 2. Subcentimeter, indeterminate inferior right lobe hepatic lesion which may reflect a small cyst or hemangioma, though is too small to fully characterize. 3. Prior right orchiectomy for reported testicular cancer. Finalized by Amber Sandhu M.D. on 08/04/2016 8:43 AM. Dictated by Amber Sandhu M.D. on 08/04/2016 8:[address] CHEST, ABDOMEN AND PELVIS Clinical Indication:Male, 61 years old. Cancer screening. Technique: Multiple contiguous axial images were obtained through the chest, abdomen and pelvis following the administration of IV contrast material. Portal venous phase imaging was obtained. Post processing coronal and sagittal reconstruction images were made from the axial images. IV contrast: Isovue-370 Bowel contrast:None. Comparison: None CHEST FINDINGS: Lower Neck: Unremarkable Axilla, Mediastinum and Temi: Mild mediastinal and bilateral hilar adenopathy is identified. Rounder And Backer subcarinal lymph node on series 5 image 31 measures 1.1 cm short axis. Right hilar lymph node measures 1.7 x 1.3 cm on series 5 image 32. Heart and Great Vessels: The heart is normal in size without pericardial effusion. Mild coronary arterial calcification is noted. There is mild narrowing of the central right bronchovascular structures by right hilar adenopathy. Airway, Lungs and Pleura: There is a small to moderate, partially loculated right pleural effusion with patchy adjacent airspace consolidation, for example on series 5 image 46. Mild associated right lower lobe peribronchial thickening is noted. Mild emphysema is noted. Calcified granuloma is seen along the left major fissure. Mild right lower lobe peribronchial thickening is seen. Tiny nodular opacity is seen within the right middle lobe on series 5 image 38 which may reflect an ectatic vessel when correlating with reformatted imaging. Chest Wall and Osseous Structures: No destructive osseous lesion is seen. ABDOMEN AND PELVIS FINDINGS: Liver and Biliary system: The liver is normal in size without biliary ductal dilatation identified. Tiny low-density lesion is seen within the inferior right lobe on series 7 image 28 (see also series 10 image 68). This is too small to characterize. The gallbladder is nondilated. Spleen: The spleen is mildly enlarged without focal lesion. Adrenal Glands and Kidneys: The adrenal glands and kidneys are unremarkable apart from mild renal atrophy bilaterally. Pancreas and Retroperitoneum: The pancreas is unremarkable. No enlarged retroperitoneal lymph nodes are seen. Aorta and Major Vessels: Aortoiliac vessels are normal caliber and contain mild atherosclerotic plaque. Bowel, Mesentery and Peritoneal space: Large and small bowel is normal caliber. The appendix is normal. No ascites is seen. Pelvis: The unopacified bladder is unremarkable. Prostate is normal in size and contains dystrophic calcification. No enlarged pelvic lymph nodes are seen. Abdominal wall and Osseous Structures: Small fat-containing right inguinal and umbilical hernias are noted. There has been prior right orchiectomy. Procedure Note Interface, Radiant Results - TueAug 04, 2016 8:[address] CHEST, ABDOMEN AND PELVIS Clinical Indication: Male, 61 years old. Cancer screening. Technique: Multiple contiguous axial images were obtained through the chest, abdomen and pelvis following the administration of IV contrast material. Portal venous phase imaging was obtained. Post processing coronal and sagittal reconstruction images were made from the axial images. IV contrast: Isovue-370 Bowel contrast: None. Comparison: None CHEST FINDINGS: Lower Neck: Unremarkable Axilla, Mediastinum and Temi: Mild mediastinal and bilateral hilar adenopathy is identified. Rounder And Backer subcarinal lymph node on series 5 image 31 measures 1.1 cm short axis. Right hilar lymph node measures 1.7 x 1.3 cm on series 5 image 32. Heart and Great Vessels: The heart is normal in size without pericardial effusion. Mild coronary arterial calcification is noted. There is mild narrowing of the central right bronchovascular structures by right hilar adenopathy. Airway, Lungs and Pleura: There is a small to moderate, partially loculated right pleural effusion with patchy adjacent airspace consolidation, for example on series 5 image 46. Mild associated right lower lobe peribronchial thickening is noted. Mild emphysema is noted. Calcified granuloma is seen along the left major fissure. Mild right lower lobe peribronchial thickening is seen. Tiny nodular opacity is seen within the right middle lobe on series 5 image 38 which may reflect an ectatic vessel when correlating with reformatted imaging. Chest Wall and Osseous Structures: No destructive osseous lesion is seen. ABDOMEN AND PELVIS FINDINGS: Liver and Biliary system: The liver is normal in size without biliary ductal dilatation identified. Tiny low-density lesion is seen within the inferior right lobe on series 7 image 28 (see also series 10 image 68). This is too small to characterize. The gallbladder is nondilated. Spleen: The spleen is mildly enlarged without focal lesion. Adrenal Glands and Kidneys: The adrenal glands and kidneys are unremarkable apart from mild renal atrophy bilaterally. Pancreas and Retroperitoneum: The pancreas is unremarkable. No enlarged retroperitoneal lymph nodes are seen. Aorta and Major Vessels: Aortoiliac vessels are normal caliber and contain mild atherosclerotic plaque. Bowel, Mesentery and Peritoneal space: Large and small bowel is normal caliber. The appendix is normal. No ascites is seen. Pelvis: The unopacified bladder is unremarkable. Prostate is normal in size and contains dystrophic calcification. No enlarged pelvic lymph nodes are seen. Abdominal wall and Osseous Structures: Small fat-containing right inguinal and umbilical hernias are noted. There has been prior right orchiectomy. IMPRESSION CHEST: 1. Mild mediastinal and bilateral hilar lymphadenopathy which is indeterminate and may reflect yvonne metastatic disease or be reactive in nature. PET imaging may be beneficial for further evaluation given clinical concern for occult malignancy. 2. Small to moderate, partially loculated right pleural effusion with subjacent right lower lobe patchy airspace consolidation which may reflect pneumonia. Clinical correlation is suggested. No discrete pulmonary mass is identified. Imaging follow-up is recommended as clinically warranted. 3. Mild emphysema. 4. Tiny right middle lobe nodular opacity which likely reflects an ectatic vessel or scar when correlating with reformatted imaging. ABDOMEN AND PELVIS: 1. No enlarged abdominopelvic lymph nodes, inflammatory mass, or ascites. 2. Subcentimeter, indeterminate inferior right lobe hepatic lesion which may reflect a small cyst or hemangioma, though is too small to fully characterize. 3. Prior right orchiectomy for reported testicular cancer. Finalized by Amber Sandhu M.D. on 08/04/2016 8:43 AM. Dictated by Amber Sandhu M.D. on 08/04/2016 8:19 AM. * CT CHEST W CONTRAST (08/04/2016 4:33 AM) Impressions CHEST: 1. Mild mediastinal and bilateral hilar lymphadenopathy which is indeterminate and may reflect yvonne metastatic disease or be reactive in nature. PET imaging may be beneficial for further evaluation given clinical concern for occult malignancy. 2. Small to moderate, partially loculated right pleural effusion with subjacent right lower lobe patchy airspace consolidation which may reflect pneumonia. Clinical correlation is suggested. No discrete pulmonary mass is identified. Imaging follow-up is recommended as clinically warranted. 3. Mild emphysema. 4. Tiny right middle lobe nodular opacity which likely reflects an ectatic vessel or scar when correlating with reformatted imaging. ABDOMEN AND PELVIS: 1. No enlarged abdominopelvic lymph nodes, inflammatory mass, or ascites. 2. Subcentimeter, indeterminate inferior right lobe hepatic lesion which may reflect a small cyst or hemangioma, though is too small to fully characterize. 3. Prior right orchiectomy for reported testicular cancer. Finalized by Amber Sandhu M.D. on 08/04/2016 8:43 AM. Dictated by Amber Sandhu M.D. on 08/04/2016 8:[address] CHEST, ABDOMEN AND PELVIS Clinical Indication:Male, 61 years old. Cancer screening. Technique: Multiple contiguous axial images were obtained through the chest, abdomen and pelvis following the administration of IV contrast material. Portal venous phase imaging was obtained. Post processing coronal and sagittal reconstruction images were made from the axial images. IV contrast: Isovue-370 Bowel contrast:None. Comparison: None CHEST FINDINGS: Lower Neck: Unremarkable Axilla, Mediastinum and Temi: Mild mediastinal and bilateral hilar adenopathy is identified. Rounder And Backer subcarinal lymph node on series 5 image 31 measures 1.1 cm short axis. Right hilar lymph node measures 1.7 x 1.3 cm on series 5 image 32. Heart and Great Vessels: The heart is normal in size without pericardial effusion. Mild coronary arterial calcification is noted. There is mild narrowing of the central right bronchovascular structures by right hilar adenopathy. Airway, Lungs and Pleura: There is a small to moderate, partially loculated right pleural effusion with patchy adjacent airspace consolidation, for example on series 5 image 46. Mild associated right lower lobe peribronchial thickening is noted. Mild emphysema is noted. Calcified granuloma is seen along the left major fissure. Mild right lower lobe peribronchial thickening is seen. Tiny nodular opacity is seen within the right middle lobe on series 5 image 38 which may reflect an ectatic vessel when correlating with reformatted imaging. Chest Wall and Osseous Structures: No destructive osseous lesion is seen. ABDOMEN AND PELVIS FINDINGS: Liver and Biliary system: The liver is normal in size without biliary ductal dilatation identified. Tiny low-density lesion is seen within the inferior right lobe on series 7 image 28 (see also series 10 image 68). This is too small to characterize. The gallbladder is nondilated. Spleen: The spleen is mildly enlarged without focal lesion. Adrenal Glands and Kidneys: The adrenal glands and kidneys are unremarkable apart from mild renal atrophy bilaterally. Pancreas and Retroperitoneum: The pancreas is unremarkable. No enlarged retroperitoneal lymph nodes are seen. Aorta and Major Vessels: Aortoiliac vessels are normal caliber and contain mild atherosclerotic plaque. Bowel, Mesentery and Peritoneal space: Large and small bowel is normal caliber. The appendix is normal. No ascites is seen. Pelvis: The unopacified bladder is unremarkable. Prostate is normal in size and contains dystrophic calcification. No enlarged pelvic lymph nodes are seen. Abdominal wall and Osseous Structures: Small fat-containing right inguinal and umbilical hernias are noted. There has been prior right orchiectomy. Procedure Note Interface, Radiant Results - TueAug 04, 2016 8:[address] CHEST, ABDOMEN AND PELVIS Clinical Indication: Male, 61 years old. Cancer screening. Technique: Multiple contiguous axial images were obtained through the chest, abdomen and pelvis following the administration of IV contrast material. Portal venous phase imaging was obtained. Post processing coronal and sagittal reconstruction images were made from the axial images. IV contrast: Isovue-370 Bowel contrast: None. Comparison: None CHEST FINDINGS: Lower Neck: Unremarkable Axilla, Mediastinum and Temi: Mild mediastinal and bilateral hilar adenopathy is identified. Rounder And Backer subcarinal lymph node on series 5 image 31 measures 1.1 cm short axis. Right hilar lymph node measures 1.7 x 1.3 cm on series 5 image 32. Heart and Great Vessels: The heart is normal in size without pericardial effusion. Mild coronary arterial calcification is noted. There is mild narrowing of the central right bronchovascular structures by right hilar adenopathy. Airway, Lungs and Pleura: There is a small to moderate, partially loculated right pleural effusion with patchy adjacent airspace consolidation, for example on series 5 image 46. Mild associated right lower lobe peribronchial thickening is noted. Mild emphysema is noted. Calcified granuloma is seen along the left major fissure. Mild right lower lobe peribronchial thickening is seen. Tiny nodular opacity is seen within the right middle lobe on series 5 image 38 which may reflect an ectatic vessel when correlating with reformatted imaging. Chest Wall and Osseous Structures: No destructive osseous lesion is seen. ABDOMEN AND PELVIS FINDINGS: Liver and Biliary system: The liver is normal in size without biliary ductal dilatation identified. Tiny low-density lesion is seen within the inferior right lobe on series 7 image 28 (see also series 10 image 68). This is too small to characterize. The gallbladder is nondilated. Spleen: The spleen is mildly enlarged without focal lesion. Adrenal Glands and Kidneys: The adrenal glands and kidneys are unremarkable apart from mild renal atrophy bilaterally. Pancreas and Retroperitoneum: The pancreas is unremarkable. No enlarged retroperitoneal lymph nodes are seen. Aorta and Major Vessels: Aortoiliac vessels are normal caliber and contain mild atherosclerotic plaque. Bowel, Mesentery and Peritoneal space: Large and small bowel is normal caliber. The appendix is normal. No ascites is seen. Pelvis: The unopacified bladder is unremarkable. Prostate is normal in size and contains dystrophic calcification. No enlarged pelvic lymph nodes are seen. Abdominal wall and Osseous Structures: Small fat-containing right inguinal and umbilical hernias are noted. There has been prior right orchiectomy. IMPRESSION CHEST: 1. Mild mediastinal and bilateral hilar lymphadenopathy which is indeterminate and may reflect yvonne metastatic disease or be reactive in nature. PET imaging may be beneficial for further evaluation given clinical concern for occult malignancy. 2. Small to moderate, partially loculated right pleural effusion with subjacent right lower lobe patchy airspace consolidation which may reflect pneumonia. Clinical correlation is suggested. No discrete pulmonary mass is identified. Imaging follow-up is recommended as clinically warranted. 3. Mild emphysema. 4. Tiny right middle lobe nodular opacity which likely reflects an ectatic vessel or scar when correlating with reformatted imaging. ABDOMEN AND PELVIS: 1. No enlarged abdominopelvic lymph nodes, inflammatory mass, or ascites. 2. Subcentimeter, indeterminate inferior right lobe hepatic lesion which may reflect a small cyst or hemangioma, though is too small to fully characterize. 3. Prior right orchiectomy for reported testicular cancer. Finalized by Amber Sandhu M.D. on 08/04/2016 8:43 AM. Dictated by Amber Sandhu M.D. on 08/04/2016 8:19 AM. * HEMOGLOBIN A1C (08/03/2016 8:20 PM) Component Value Range Hemoglobin A1C 5.7Comment: 4.0-6.0 % The ADA recommends that most patients with type 1 and type 2 diabetes maintain an A1c level <7%. Specimen Blood * TSH WITH FREE T4 REFLEX (08/03/2016 8:20 PM) Component Value Range TSH 4.935 0.35-5.00 MCU/ML Specimen Blood * LIPID PROFILE (08/03/2016 8:20 PM) Component Value Range Cholesterol 193 <200 MG/DL Triglycerides 106 <150 MG/DL HDL 39 (L) >40 MG/DL LDL 144 (H) <100 MG/DL VLDL 21 MG/DL Non HDL Cholesterol 154Comment: MG/DL Calculated non-HDL Cholesterol (non-HDL-C) indirectly measures LDL-C, Lp(a), IDL-C, and VLDL-C. It is a surrogate marker for Apoprotein B. Non-HDL-C is a more accurate measure of atherogenic particle concentration than LDL-C in patients with hypertriglyceridemia (>200 mg/dL). This calculation is now recommended for evaluation and treatment of coronary heart disease according to the National Cholesterol Education Program Adult Treatment Protocol-III. See Driver et al. Am J. Cardiol. 2008, [id number]. The "goal" should be less than 130 mg/dL, but will vary according to risk factors. Specimen Blood
--- OUTSIDE RECORDS SUMMARY | 2016-08-09 15:35 | XMS REPORT ---
Author Author [facility] Medical Staff Organization [facility] Address [address] [place], [place] [address] Phone [phone] Summary purpose CCDA Sent to [facility] Chief Complaint and Reason for Visit Admit Diagnosis 1 N/V/D since Problem list No authorized problems tracked for continuity of care are available for this visit. Encounters No authorized problems tracked for encounter diagnoses are available for this visit. Medications No medications recorded for this patient visit Allergies, adverse reactions, alerts No allergy information is available for this patient. Immunizations No immunizations recorded for this patient visit Relevant diagnostic tests and/or laboratory data No authorized results are available for this patient visit History of procedures No procedures recorded for this patient visit. Functional status No functional or cognitive status observations are available for this visit. Vital signs No authorized vital signs are available for this visit. Social history No Social History or smoking status observations were recorded for this visit. ( Unknown if ever smoked.) Treatment Plan No treatment plan text is available for this visit. Hospital discharge instructions No discharge instruction text is available for this visit.
--- OUTSIDE RECORDS SUMMARY | 2016-08-09 15:35 | XMS REPORT ---
Author Author [facility] Medical Staff Organization [facility] Address [address] [place], [place] [address] Phone [phone] Care Team Providers Care Clinical Assistant Name Role Phone FARAZ LEE MD PP [phone] Summary purpose CCDA Sent to [facility] Chief Complaint and Reason for Visit No authorized Reason for Visit (Admitting Diagnosis) is available for this visit. Problem list No authorized problems tracked for continuity of care are available for this visit. Encounters No authorized problems tracked for encounter diagnoses are available for this visit. Medications No medications recorded for this patient visit Allergies, adverse reactions, alerts Allergen Category Ingredient Status Reaction Severity Onset TYLENOL Drug TYLENOL Active swelling Immunizations No immunizations recorded for this patient visit Relevant diagnostic tests and/or laboratory data No authorized results are available for this patient visit History of procedures Procedure Code Code Type Description Date Performed Performing Physician 93174 CPT-4 SMEAR, GRAM STAIN 08-12-2015 DAHLIA DOWNING 95566 CPT-4 CULTURE, BACTERIA, OTHER 08-12-2015 DAHLIA DOWNING 06608 CPT-4 CULTURE AEROBIC IDENTIFY 08-12-2015 DAHLIA DOWNING 80895 CPT-4 MICROBE SUSCEPTIBLE, SADIE 08-12-2015 DAHLIA DOWNING Functional status No functional or cognitive status [...]
--- OUTSIDE RECORDS SUMMARY | 2016-08-09 15:35 | XMS REPORT ---
Author Author [facility] Medical Staff Organization [facility] Address [address] [place], [place] [address] Phone [phone] Care Team Providers Care Dock Manager Name Role Phone FARAZ LEE MD PP [phone] Summary purpose CCDA Sent to [facility] Chief Complaint and Reason for Visit No [...]
--- OUTSIDE RECORDS SUMMARY | 2016-08-09 15:35 | XMS REPORT ---
Author Author [facility] Medical Staff Organization [facility] Address [address] [place], [place] [address] Phone [phone] Care Team Providers Care Corridor Redevelopment Manager Name Role Phone JESUS RODRIGUES, FARAZ PP [phone] FARAZ LEE MD, PP [phone] Summary purpose CCDA Sent to [facility] Chief Complaint and Reason for Visit Admit Diagnosis 1 WOUND TO RT 3RD DIGIT Problem list No authorized problems tracked for [...] Code Type Description Date Performed Performing Physician 16947 CPT-4 EMERGENCY DEPT VISIT 08-09-2015 FARAZ LEE 32043 CPT-4 REPAIR SUPERFICIAL WOUND(S) 08-09-2015 FARAZ LEE Functional status Cognitive Status Finding Observation Time Level of Consciousne Alert :25 Oriented to Person Yes 26-25-195981:[address] Yes 50-41-878412:25 Oriented to Time Yes 23-80-598283:25 Vital signs Type Value Date Respirations 20 03-12-622773:30 Pulse 75 40-75-769429:30 O2 Saturation 96% 05-41-486377:30 Systolic Blood Press 138mm/HG 38-33-095208:30 Diastolic Blood Pres 89mm/HG 55-19-808758:30 Temperature (Fahr) 98.5Degrees :30 Social history Type Value Smoking Status UNKNOWN IF EVER SMOKED Treatment Plan No treatment plan text is available for this visit. Hospital discharge instructions Diagnosis laceration of 3rd finger middle joint planter surface Diet Regular diet Activity Level no restriction except for movement of the finger to avoid Med Dispensed by Pro You were given 1% Xylocaine with a 30g needle and the wound was closed with 4-0 ethilon with a total of 7 stitches and a cut pinrose drain in the center due to the contamination of the wound. Wound was 4cm in length and cut to the tendon. Follow up with Dr Olivares Appointment Date and on Tuesday Wound Care Drain will be removed Tuesday. Keep the area dry and clean and notify of redness or swelling or if has other problems. Change the dressings daily with neosporin oint and gauze but twice a day is preferable. Tetanus shot was up to date. Other Instructions notify if has questions or other problems. sutures will be removed in about 16 days.
--- OUTSIDE RECORDS SUMMARY | 2016-08-09 15:35 | XMS REPORT | Clinical Summary ---
Author Author Admin, JOSE LUIS Organization [facility] Address Unknown Phone Allergies, Adverse Reactions, Alerts Allergy Name Reaction Description Start Date Severity Status Provider ACETAMINOPHEN Critical Active Patrick Fuentes MD Conditions or Problems Problem Name Problem Code Onset Date Status Entry Date Provider Comment Standard Description Annotate Testicular mass, right 608.89 Active Patrick Fuentes MD Other specified disorders of male genital organs Medication List Medication Instructions Start Date Stop Date Generic Name NDC Status Provider Patient Instruction ZOLPIDEM TARTRATE 10 MG TABS 1 daily ZOLPIDEM TARTRATE 78367979072 Active Patrick Fuentes MD Active CIALIS 5 MG TABS prn TADALAFIL 42816361222 Active Patrick Fuentes MD Active LOSARTAN POTASSIUM 50 MG TABS 1 daily LOSARTAN POTASSIUM 19531475471 Active Patrick Fuentes MD Active Advance Directives Directive Description Start Date PERMISSION TO SHARE Vital Signs Date Name Value Unit Range Description blood pressure, diastolic - 8462-4 78 mm[Hg] BP arguello blood pressure, systolic - 8480-6 122 mm[Hg] BP sys height E&M - 8302-2 71 [in_us] Bdy height weight E&M - 3141-9 213 [lb_av] Weight Measured Diagnostic Results Date Name Value Unit Range Description Lab Report: CBC, BMP, AFP, HCG - Chemistry sodium, serum 138 mmol/L potassium, serum 4.6 mmol/L blood glucose 90 mg/dL creatinine, serum 1.02 mg/dL Lab Report: CBC, BMP, AFP, HCG - Hematology leukocyte count, blood 4.9 10*3/mm3 hemoglobin, blood 14.4 g/dL platelet count 239 10*3/mm3 Encounters Code Encounter Date Provider Facility CPT-02108 Level 4 New Patient 17:21:57 CDT Patrick Fuentes MD [facility] [place]
--- OUTSIDE RECORDS SUMMARY | 2016-08-09 15:35 | XMS REPORT ---
Author Author [facility] Medical Staff Organization [facility] Address [address] [place], [place] [address] Phone [phone] Care Team Providers Care Cathodic Protection Technician Name Role Phone FARAZ LEE MD PP [phone] Summary purpose CCDA Sent to [facility] Chief Complaint and Reason for Visit Admit Diagnosis 1 N/V Problem list No authorized problems tracked for [...]
--- OUTSIDE RECORDS SUMMARY | 2016-08-09 15:35 | XMS REPORT ---
Author Author [facility] Medical Staff Organization [facility] Address [address] [place], [place] [address] Phone [phone] Care Team Providers Care Buffet Attendant Name Role Phone FARAZ LEE MD PP [phone] Summary purpose CCDA Sent to [facility] Chief Complaint and Reason for Visit No authorized Reason for Visit (Admitting Diagnosis) is available for this visit. Problem list No authorized problems tracked for continuity of care are available for this visit. Encounters No authorized problems tracked for encounter diagnoses are available for this visit. Medications No home medications recorded for this patient visit Allergies, adverse reactions, alerts Allergen Category Ingredient Status Reaction Severity Onset TYLENOL Drug TYLENOL Active swelling Immunizations No immunizations recorded for this patient visit Relevant diagnostic tests and/or laboratory data RESULTS CBC 99-78-211974:59:00 Result Normal Range Units WBC 7.50 4.60-10.20 x 103/uL RBC 5.01 4.04-6.13 x 106/uL Hemoglobin 14.6 12.2-18.1 g/dl Hematocrit 43.1 37.7-53.7 % MCV 86.0 80.0-97.0 FL MCH 29.1 27.0-31.2 pg MCHC 33.9 31.8-35.4 g/dl RDW 13.6 11.6-14.8 % Platelets 234 142-424 x 103/uL MPV 10.1 9.4-12.4 FL Manual Diff Not Indicated Neutrophil % 70.3 37-80 % Neutrophils 5.28 2.0-6.9 x 103/uL Lymphocyte % 19.1 10-50 % Lymphocytes 1.43 0.6-3.4 x 103/uL Monocyte % 8.0 0-12 % Monocytes 0.60 0.0-1.0 x 103/uL Eosinophil % 2.3 0-7 % Eosinophils 0.17 0-0.7 x 103/uL Basophil % 0.3 0-2 % Basophils 0.02 0.0-0.1 x 103/uL Serology Group [id number]:59:00 H Pylori IgG Negative Chemistry Group [id number]:59:00 Result Normal Range Units Glucose 85 70-99 mg/dl BUN 21 7-26 mg/dl Creatinine 1.0 0.6-1.3 mg/dl Sodium 140 136-145 mmol/L Potassium 4.0 3.5-5.1 mmol/L Chloride 104 98-107 mmol/L CO2 22 22-29 mmol/L BUN/Creatinine Ratio 21 7-25 Ratio Calcium 9.6 8.4-10.2 mg/dl Protein Total 7.5 6.4-8.3 g/dl Albumin 4.0 3.5-5.0 g/dl A/G Ratio L 1.1 1.2-2.2 Ratio AST 24 5-34 U/L ALT 25 0-55 U/L ALP 63 40-150 U/L Bilirubin Total 0.7 0.2-1.2 mg/dl Osmolality 273 261-280 mOsm/kg Globulin 3.5 2.4-3.5 g/dl CK 58 30-170 U/L CKMB 0.7 <=6 ng/ml BNP 29.5 <=100 pg/ml Troponin 0.00 <=0.20 ng/ml Myoglobin 30.1 10-85 ng/ml Reference Lab Group [id number]:00 EKG See Manual Report History of procedures Procedure Code Code Type Description Date Performed Performing Physician 01738 CPT-4 ELECTROCARDIOGRAM TRACING 11-27-2014 FARAZ LEE 38300 CPT-4 COMPLETE CBC W/AUTO DIFF WBC 11-27-2014 FARAZ LEE 21861 CPT-4 COMPREHEN METABOLIC PANEL 11-27-2014 FARAZ LEE 37300 CPT-4 ASSAY OF NATRIURETIC PEPTIDE 11-27-2014 FARAZ LEE 21839 CPT-4 ASSAY OF CK (CPK) 11-27-2014 FARAZ LEE 00017 CPT-4 CREATINE MB FRACTION 11-27-2014 FARAZ LEE 95332 CPT-4 ASSAY OF TROPONIN QUANT 11-27-2014 FARAZ LEE 29179 CPT-4 HELICOBACTER PYLORI ANTIBODY 11-27-2014 FARAZ LEE 70472 CPT-4 ASSAY OF MYOGLOBIN 11-27-2014 FARAZ LEE Functional status No functional or cognitive status [...]
--- OUTSIDE RECORDS SUMMARY | 2016-08-09 15:35 | XMS REPORT ---
Author Author [facility] Medical Staff Organization [facility] Address [address] [place], [place] [address] Phone [phone] Care Team Providers Care Botany Professor Name Role Phone FARAZ LEE MD PP [phone] Summary purpose CCDA Sent to [facility] Chief Complaint and Reason for Visit No [...] Code Type Description Date Performed Performing Physician 56652 CPT-4 EMERGENCY DEPT VISIT 08-09-2015 STERLING BOWMAN Functional status No functional or cognitive status [...]
--- OUTSIDE RECORDS SUMMARY | 2016-08-09 15:35 | XMS REPORT | Clinical Summary ---
Author Author Admin, JOSE LUIS Organization [facility] Address Unknown Phone Allergies, Adverse Reactions, [...] 10 MG TABS 1 daily ZOLPIDEM TARTRATE 45569530349 Active Patrick Fuentes MD Active CIALIS 5 MG TABS prn TADALAFIL 73534887920 Active Patrick Fuentes MD Active LOSARTAN POTASSIUM 50 MG TABS 1 daily LOSARTAN POTASSIUM 39998313059 Active Patrick Fuentes MD Active Advance Directives Directive Description Start Date PERMISSION TO SHARE Vital Signs Date Name Value Unit Range Description blood pressure, diastolic - 8462-4 78 mm[Hg] BP arguello blood pressure, systolic - 8480-6 122 mm[Hg] BP sys height E&M - 8302-2 71 [in_us] Bdy height weight E&M - 3141-9 213 [lb_av] Weight Measured Encounters Code Encounter Date Provider Facility CPT-26421 Level 4 New Patient 17:21:57 CDT Patrick Fuentes MD [facility]
--- OUTSIDE RECORDS SUMMARY | 2016-08-09 15:36 | XMS REPORT | Clinical Summary ---
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 Medication List Medication Instructions Start Date Stop Date Generic Name ND Status Provider Patient Instruction ZOLPIDEM TARTRATE 10 MG TABS 1 daily ZOLPIDEM TARTRATE 34869207358 Active Patrick Fuentes MD Active CIALIS 5 MG TABS prn TADALAFIL 11034671594 Active Patrick Fuentes MD Active LOSARTAN POTASSIUM 50 MG TABS 1 daily LOSARTAN POTASSIUM 37369915929 Active Patrick Fuentes MD Active Advance Directives [...] Report: CBC, BMP, AFP, HCG - Chemistry blood glucose 90 mg/dL creatinine, serum 1.02 mg/dL potassium, serum 4.6 mmol/L sodium, serum 138 mmol/L Lab Report: CBC, BMP, AFP, HCG - Hematology platelet count 239 10*3/mm3 hemoglobin, blood 14.4 g/dL leukocyte count, blood 4.9 10*3/mm3 Encounters Code Encounter Date Provider Facility CPT-67598 Level 4 New Patient 17:21:57 CDT Patrick Fuentes MD [facility] [place] Procedures Code Procedure Name Date Entry Date Standard Description CPT-16748 Postop F/U Visit 23:11:24 CDT
--- OUTSIDE RECORDS SUMMARY | 2016-08-09 15:36 | XMS REPORT ---
Author Author [facility] Medical Staff Organization [facility] Address [address] [place], [place] [address] Phone [phone] Care Team Providers Care Pasteurizing Machine Operator Name Role Phone FARAZ LEE MD PP [phone] FARAZ LEE MD, PP [phone] Summary purpose CCDA Sent to [facility] Chief Complaint and Reason for Visit No [...] Code Type Description Date Performed Performing Physician J0690 CPT-4 CEFAZOLIN NA INJ 12-03-2015 JAYDEN JEFFERSON J3010 CPT-4 FENTANYL CITRATE INJECITON 12-03-2015 JAYDEN JEFFERSON J2250 CPT-4 MIDAZOLAM HCL INJ/1MG 12-03-2015 JAYDEN JEFFERSON J2704 CPT-4 INJ, PROPOFOL, 10 MG 12-03-2015 JAYDEN JEFFERSON 24397 CPT-4 DIAGNOSTIC COLONOSCOPY 12-03-2015 JAYDEN JEFFERSON 56901 CPT-4 UPPER GI ENDOSCOPY, BIOPSY 12-03-2015 JAYDEN JEFFERSON Functional status Cognitive Status Finding Observation Time Level of Consciousne Alert 80-01-669799:00 Oriented to Person Yes 83-38-446780:[address] Yes 82-60-816198:00 Oriented to Time Yes 29-21-564924:00 Eyes - ISABEL Yes 22-45-970680:00 Vital signs Type Value Date Respirations 16 38-16-258817:20 Pulse 70 88-87-069986:50 O2 Saturation 99% 98-42-611294:50 Systolic Blood Press 129mm/HG :50 Diastolic Blood Pres 94mm/HG :50 Temperature (Fahr) 98.4Degrees :20 Weight 224LB :01 Social history Type Value Smoking Status FORMER SMOKER Treatment Plan Treatment Plan at Di follow post procedure and discharge instructions and follow up with PCP and Dr Booker as needed Hospital discharge instructions Diagnosis You had an EGD and Colonoscopy today. Your Colonoscopy was normal and you will not need another Colonoscopy for 10 years. Your EGD revealed only mild inflammation of the esophagus- you may take over the counter acid reducers as needed. Diet as tolerated Activity Level rest today and do not drive, the medications you received today may make you a little dizzy or lightheaded so you need to stand from sitting or laying positions slowly Follow up with your family Dr Nicholas: and Dr Booker Appointment Date and as needed
--- OUTSIDE RECORDS SUMMARY | 2016-08-09 15:36 | XMS REPORT | Clinical Summary ---
Author Author Admin, [facility] Organization [facility] Address Unknown Phone Allergies, Adverse Reactions, Alerts [...] 10 MG TABS 1 daily ZOLPIDEM TARTRATE 10177233301 Active Patrick Fuentes MD Active CIALIS 5 MG TABS prn TADALAFIL 81926386632 Active Patrick Fuentes MD Active LOSARTAN POTASSIUM 50 MG TABS 1 daily LOSARTAN POTASSIUM 49845850669 Active Patrick Fuentes MD Active Advance Directives Directive Description Start Date PERMISSION TO SHARE Encounters Code Encounter Date Provider Facility CPT-09576 Level 4 New Patient 17:21:57 CDT Patrick Fuentes MD [facility]
--- OUTSIDE RECORDS SUMMARY | 2016-08-09 15:36 | XMS REPORT ---
Author Author [facility] Medical Staff Organization [facility] Address [address] [place], [place] [address] Phone [phone] Care Team Providers Care Marketing Database Analyst Name Role Phone FARAZ LEE MD PP [phone] Summary purpose CCDA Sent to [facility] Chief Complaint and Reason for Visit [...] Code Type Description Date Performed Performing Physician 82976 CPT-4 SMEAR, GRAM STAIN 08-13-2015 STERLING BOWMAN 37614 CPT-4 CULTURE, BACTERIA, OTHER 08-13-2015 STERLING BOWMAN 44070 CPT-4 CULTR BACTERIA, EXCEPT BLOOD 08-13-2015 STERLING BOWMAN 73035 CPT-4 X-RAY EXAM OF HAND 08-13-2015 STERLING BOWMAN 86831 CPT-4 CULTURE AEROBIC IDENTIFY 08-13-2015 STERLING BOWMAN 05634 CPT-4 MICROBE SUSCEPTIBLE, SADIE 08-13-2015 STERLING BOWMAN Functional status No functional or [...]
--- OUTSIDE RECORDS SUMMARY | 2016-08-09 15:36 | XMS REPORT | Clinical Summary ---
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 Medication List Medication Instructions Start Date Stop Date Generic Name NDC Status Provider Patient Instruction ZOLPIDEM TARTRATE 10 MG TABS 1 daily ZOLPIDEM TARTRATE 23019003852 Active Patrick Fuentes MD Active CIALIS 5 MG TABS prn TADALAFIL 12329478736 Active Patrick Fuentes MD Active LOSARTAN POTASSIUM 50 MG TABS 1 daily LOSARTAN POTASSIUM 42001538547 Active Patrick Fuentes MD Active Advance Directives [...] 10*3/mm3 Encounters Code Encounter Date Provider Facility CPT-48972 Level 4 New Patient 17:21:57 CDT Patrick Fuentes MD [facility] [place] Procedures Code Procedure Name Date Entry Date Standard Description CPT-91484 Postop F/U Visit 23:11:24 CDT
--- OUTSIDE RECORDS SUMMARY | 2016-08-09 15:36 | XMS REPORT | Clinical Summary ---
Author Author Admin, JOSE LUIS Organization [facility] Address Unknown Phone Unavailable Allergies, Adverse Reactions, Alerts Allergy Name Reaction [...] 10 MG TABS 1 daily ZOLPIDEM TARTRATE 13689173605 Active Patrick Fuentes MD Active CIALIS 5 MG TABS prn TADALAFIL 80197981707 Active Patrick Fuentes MD Active LOSARTAN POTASSIUM 50 MG TABS 1 daily LOSARTAN POTASSIUM 21843018704 Active Patrick Fuentes MD Active Advance Directives Directive Description Start Date PERMISSION TO SHARE Vital Signs Date Name Value Unit Range Description weight E&M - 3141-9 213 [lb_av] Weight Measured blood pressure, diastolic - 8462-4 78 mm[Hg] [...] 10*3/mm3 Encounters Code Encounter Date Provider Facility CPT-36970 Level 4 New Patient 17:21:57 CDT J Gurjit Fuentes MD [facility] [place] Procedures Code Procedure Name Date Entry Date Standard Description CPT-66998 Postop F/U Visit 23:11:24 CDT
--- OUTSIDE RECORDS SUMMARY | 2016-08-09 15:36 | XMS REPORT | Continuity of Care Document ---
Demographics Preferred Language Unknown Marital Status Unknown Denominational Affiliation Unknown Race Unknown Ethnic Group Unknown Author Author [facility] Organization [facility] Address Unknown Phone Unavailable Allergies Active Description Code Type Severity Reaction Onset Reported/Identified Relationship to Patient Clinical Status Yes acetaminophen 1605 Drug Allergy Moderate Rash Yes acetaminophen 1605 Drug Allergy N/A N/A Confirmed or Verified Yes acetaminophen acetaminophen Drug Allergy Unknown N/A 05/31/2001 Yes No Known Contrast Allergies No Known Contrast Allergies Drug Allergy Unknown N/A 06/01/2001 Yes No Known Food Allergies No Known Food Allergies Drug Allergy Unknown N/A 06/01/2001 Yes NO KNOWN LATEX ALLERGY/SENSITI NO KNOWN LATEX ALLERGY/SENSITI Drug Allergy Unknown N/A 2001 Yes TYLENOL TYLENOL Drug Allergy Unknown N/A 06/01/2001 Yes TYLENOL Drug Allergy N/A swelling 05/29/2008 Yes acetaminophen acetaminophen Drug Allergy Severe HIVES 07/15/2016 Medications Problems Date Dx Coded Attending Type Code Diagnosis Diagnosed By 10/31/2012 STERLING BOWMAN DO 272.0 PURE HYPERCHOLESTEROLEM 10/31/2012 STERLING BOWMAN DO 401.9 HYPERTENSION NOS 10/31/2012 STERLING BOWMAN DO 780.4 DIZZINESS AND GIDDINESS 10/31/2012 STERLING BOWMAN DO 780.79 OTHER MALAISE & FATIGUE 10/31/2012 STERLING BOWMAN DO V76.44 SCREEN MAL NEOP PROSTATE 04/04/2013 BARON OLMOS MD 922.1 CONTUSION OF CHEST WALL 04/04/2013 BARON OLMOS MD 959.11 OTHER INJURY OF CHEST [place] 04/04/2013 BARON OLMOS MD E000.9 EXT CAUSE STATUS NOS 04/04/2013 BARON OLMOS MD E001.0 ACTIV-WALK/APRIL/HIKE 04/04/2013 BARON OLMOS MD E849.[address] NOS 04/04/2013 BARON OLMOS MD E888.1 FALL AGAINST OBJECT NEC 04/04/2013 BARON OLMOS MD 922.1 CONTUSION OF CHEST WALL 04/04/2013 BARON OLMOS MD 959.11 OTHER INJURY OF CHEST [place] 04/04/2013 BARON OLMOS MD E000.9 EXT CAUSE STATUS NOS 04/04/2013 BARON OLMOS MD E001.0 ACTIV-WALK/APRIL/HIKE 04/04/2013 BARON OLMOS MD E849.[address] NOS 04/04/2013 BARON OLMOS MD E888.1 FALL AGAINST OBJECT NEC 05/15/2013 JERRICA FLORES MD R Ruslan 719.41 JOINT PAIN-SHLDER 05/15/2013 JERRICA FLORES MD R Ruslan 780.79 OTHER MALAISE & FATIGUE 06/08/2013 SANDRA RODRIGUES, JERRICA R Ruslan 726.2 SHOULDER REGION DIS NEC 07/10/2013 STERLING BOWMAN DO 608.9 MALE GENITAL DIS NOS 11/27/2014 FARAZ LEE MD K21.9 Gastro-esophageal reflux disease without esophagitis 11/27/2014 FARAZ LEE MD R07.9 Chest pain, unspecified 11/27/2014 FARAZ LEE MD R42. Dizziness and giddiness 08/09/2015 FARAZ LEE MD S61.212A Laceration w/o fb of r mid finger w/ o damage to nail, init 08/09/2015 FARAZ LEE MD X58.XXXA Exposure to other specified factors , initial encounter 08/09/2015 FARAZ LEE MD Y92.838 [facility] recreation area as place 08/09/2015 FARAZ LEE MD Y93.89 Activity, other specified 08/09/2015 FARAZ LEE MD Y99.9 Unspecified external cause status 08/09/2015 STERLING BOWMAN DO S61.212A Laceration w/o fb of r mid finger w/o damage to nail, init 08/09/2015 STERLING BOWMAN DO X58.XXXA Exposure to other specified factors, initial encounter 08/09/2015 STERLING BWOMAN DO Y92.[address] as place 08/09/2015 STERLING BOWMAN DO Y93.89 Activity, other specified 08/09/2015 STERLING BOWMAN DO Y99.9 Unspecified external cause status 08/12/2015 CHANG MATUTEDAHLIA Lenz B95.61 Methicillin suscep staph infct causing dis classd elswhr 08/12/2015 CHANG MATUTEDAHLIA Lenz S61.401A Unspecified open wound of right hand, initial encounter 08/13/2015 STERLING BOWMAN DO B95.61 Methicillin suscep staph infct causing dis classd elswhr 08/13/2015 STERLING BOWMAN DO S61.401D Unspecified open wound of right hand, subsequent encounter 12/03/2015 JAYDEN JEFFERSON DO K20.9 Esophagitis, unspecified 12/03/2015 JAYDEN JEFFERSON DO C D K29.60 Other gastritis without bleeding 12/03/2015 JAYDEN JEFFERSON DO R10.13 Epigastric pain 12/03/2015 JAYDEN JEFFERSON DO Z12.11 Encounter for screening for malignant neoplasm of colon 12/03/2015 JAYDEN JEFFERSON DO K20.9 Esophagitis, unspecified 12/03/2015 JAYDEN JEFFERSON DO D K29.60 Other gastritis without bleeding 12/03/2015 JAYDEN JEFFERSON DO C D R10.13 Epigastric pain 12/03/2015 JAYDEN JEFFERSON DO C D Z12.11 Encounter for screening for malignant neoplasm of colon 07/11/2016 STERLING BOWMAN DO K29.00 Acute gastritis without bleeding 07/11/2016 STERLING BOWMAN DO K52.9 Noninfective gastroenteritis and colitis, unspecified 07/11/2016 STERLING BOWMAN DO R11.2 Nausea with vomiting, unspecified 07/11/2016 STERLING BOWMAN DO R19.7 Diarrhea, unspecified 07/15/2016 STERLING BOWMAN DO I10 Essential (primary) hypertension 07/15/2016 STERLING BOWMAN DO J18.1 Lobar pneumonia, unspecified organism 07/15/2016 STERLING BOWMAN DO R07.89 Other chest pain 07/15/2016 ZeJb hunt MD Mary Mary 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, UNSP DESCENDED OR U 07/15/2016 Jb Mena MD F Mary D72.829 ELEVATED WHITE BLOOD CELL COUNT, UNSPECIFIED 07/15/2016 Jb Mena MD E87.6 HYPOKALEMIA 07/15/2016 Jb Mena MD H61.20 IMPACTED CERUMEN, UNSPECIFIED EAR 07/15/2016 Jb Mena MD I26.99 OTHER PULMONARY EMBOLISM WITHOUT ACUTE COR PULMONA 07/15/2016 Jb Mena MD I48.91 UNSPECIFIED ATRIAL FIBRILLATION 07/15/2016 Jb Mena MD I82.403 ACUTE EMBOLISM AND THOMBOS UNSP DEEP VEINS OF LOW 07/15/2016 Jb Mena MD J96.01 ACUTE RESPIRATORY FAILURE WITH HYPOXIA 07/15/2016 Jb Mena MD R11.2 NAUSEA WITH VOMITING, UNSPECIFIED 07/15/2016 Jb Mena MD R42 DIZZINESS AND GIDDINESS Procedures Code [place] [address] ROUTINE VENIPUNCTURE STERLING BOWMAN DO 10/31/2012 54901 COMPREHEN METABOLIC PANEL STERLING BOWMAN DO 10/31/2012 60660 LIPID PANEL STERLING BOWMAN DO 10/31/2012 36941 URINALYSIS, AUTO W/SCOPE STERLING BOWAMN DO 10/31/2012 27691 URINALYSIS NONAUTO W/O SCOPE STERLING BOWMAN DO 10/31/2012 40902 ASSAY THYROID STIM HORMONE STERLING BOWMAN DO 10/31/2012 21597 COMPLETE CBC W/AUTO DIFF WBC STERLING BOWMAN DO 10/31/2012 G0103 PSA SCREENING STERLING BOWMAN DO 10/31/2012 42552 X-RAY EXAM OF RIBS BARON OLMOS MD 04/04/2013 65770 EMERGENCY DEPT VISIT BARON OLMOS MD 04/04/2013 24998 EMERGENCY DEPT VISIT BARON OLMOS MD 04/04/2013 22544 MRI JOINT UPR EXTREM W/O DYE JERRICA FLORES MD 05/15/2013 73808 PT RE-EVALUATION JERRICA FLORES MD 05/21/2013 81035 THERAPEUTIC EXERCISES SANDRA RODRIGUES, JERRICA De Guzman 05/30/2013 84363 US EXAM, SCROTUM STERLING BOWMAN DO 07/10/2013 61465 COMPREHEN METABOLIC PANEL FARAZ LEE MD 11/27/2014 71036 ASSAY OF CK (CPK) FARAZ LEE MD 11/27/2014 52499 CREATINE MB FRACTION FARAZ LEE MD 11/27/2014 92072 ASSAY OF MYOGLOBIN FARAZ LEE MD 11/27/2014 61341 ASSAY OF NATRIURETIC PEPTIDE FARAZ LEE MD 11/27/2014 43890 ASSAY OF TROPONIN QUANT FARAZ LEE MD 11/27/2014 50134 COMPLETE CBC W/AUTO DIFF WBC FARAZ LEE MD 11/27/2014 02657 HELICOBACTER PYLORI ANTIBODY FARAZ ELE MD 11/27/2014 49147 ELECTROCARDIOGRAM TRACING FARAZ LEE MD 11/27/2014 37494 REPAIR SUPERFICIAL WOUND(S) FARAZ LEE MD 08/09/2015 90404 EMERGENCY DEPT VISIT FARAZ LEE MD 08/09/2015 L9999 JONATHON ALERT CODE FARAZ LEE MD 08/09/2015 07285 EMERGENCY DEPT VISIT STERLING BOWMAN DO 08/09/2015 01979 CULTURE, BACTERIA, OTHER DAHLIA KELLER Nasreen 08/12/2015 20710 CULTURE AEROBIC IDENTIFY DAHLIA KELLER 08/12/2015 32698 MICROBE SUSCEPTIBLE, SADIE DAHLIA KELLER 08/12/2015 41261 SMEAR, GRAM STAIN DAHLIA KELLER L 08/12/2015 39904 X-RAY EXAM OF HAND STERLING BOWMAN DO 08/13/2015 64935 CULTURE, BACTERIA, OTHER STERLING BOWMAN DO 08/13/2015 63140 CULTR BACTERIA, EXCEPT BLOOD STERLING BOWMAN DO 08/13/2015 32507 CULTURE AEROBIC IDENTIFY STERLING BOWMAN DO 08/13/2015 07128 MICROBE SUSCEPTIBLE, SADIE STERLING BOWMAN DO 08/13/2015 38178 SMEAR, GRAM STAIN STERLING BOWMAN DO 08/13/2015 73800 EGD BIOPSY SINGLE/MULTIPLE JAYDEN JEFFERSON DO 12/03/2015 97918 DIAGNOSTIC COLONOSCOPY JAYDEN JEFFERSON DO 12/03/2015 J0690 CEFAZOLIN SODIUM INJECTION JAYDEN JEFFERSON DO 12/03/2015 J2250 INJ MIDAZOLAM HYDROCHLORIDE JAYDEN JEFFERSON DO 12/03/2015 J2704 INJ, PROPOFOL, 10 MG JAYDEN JEFFERSON DO 12/03/2015 J3010 FENTANYL CITRATE INJECITON JAYDEN JEFFERSON DO 12/03/2015 23941 ROUTINE VENIPUNCTURE STERLING BOWMAN DO 07/11/2016 96309 CHEST X-RAY 1 VIEW FRONTAL STERLING BOWMAN DO 07/11/2016 91686 COMPREHEN METABOLIC PANEL STERLING BOWMAN DO 07/11/2016 86499 ASSAY OF CK (CPK) STERLING BOWMAN DO 07/11/2016 80874 CREATINE MB FRACTION STERLING BOWMAN DO 07/11/2016 82223 ASSAY OF MYOGLOBIN STERLING BOWMAN DO 07/11/2016 17429 ASSAY OF TROPONIN QUANT STERLING BOWMAN DO 07/11/2016 89218 COMPLETE CBC W/AUTO DIFF WBC STERLING BOWMAN DO 07/11/2016 07956 CULTURE OTHR SPECIMN AEROBIC STERLING BOWMAN DO 07/11/2016 79601 ELECTROCARDIOGRAM TRACING STERLING BOWMAN DO 07/11/2016 12388 HYDRATE IV INFUSION ADD-ON STERLING BOWMAN DO 07/11/2016 36351 THER/PROPH/DIAG INJ IV PUSH STERLING BOWMAN DO 07/11/2016 44411 TX/PRO/DX INJ NEW DRUG ADDON STERLING BOWMAN DO 07/11/2016 48448 EMERGENCY DEPT VISIT STERLING BOWMAN DO 07/11/2016 J0696 CEFTRIAXONE SODIUM INJECTION STERLING BOWMAN DO 07/11/2016 J2405 ONDANSETRON HCL INJECTION STERLING BOWMAN DO 07/11/2016 J7030 NORMAL SALINE SOLUTION INFUS STERLING BOWMAN DO 07/11/2016 J7050 NORMAL SALINE SOLUTION INFUS STERLING BOWMAN DO 07/11/[address] THORAX W/DYE STERLING BOWMAN DO 07/15/2016 22862 COMPREHEN METABOLIC PANEL STERLING BOWMAN DO 07/15/2016 22108 ASSAY OF AMYLASE STERLING BOWMAN DO 07/15/2016 51859 ASSAY OF CK (CPK) STERLING BOWMAN DO 07/15/2016 73064 CREATINE MB FRACTION STERLING BOWMAN DO 07/15/2016 30689 ASSAY OF MYOGLOBIN STERLING BOWMAN DO 07/15/2016 65852 ASSAY OF NATRIURETIC PEPTIDE STERLING BOWMAN DO 07/15/2016 83579 ASSAY OF TROPONIN QUANT STELRING BOWMAN DO 07/15/2016 84799 COMPLETE CBC W/AUTO DIFF WBC STERLING BOWMAN DO 07/15/2016 24065 INFLUENZA ASSAY W/OPTIC STERLING BOWMAN DO 07/15/2016 65873 ELECTROCARDIOGRAM TRACING STERLING BOWMAN DO 07/15/2016 58231 THER/PROPH/DIAG IV INF INIT STERLING BOWMAN DO 07/15/2016 51711 THER/PROPH/DIAG INJ IV PUSH STERLING BOWMAN DO 07/15/2016 82060 TX/PRO/DX INJ NEW DRUG STERLING DONAHUE DO 07/15/2016 45634 TX/PRO/DX INJ SAME DRUG STERLING MCDONALD DO 07/15/2016 29494 EMERGENCY DEPT VISIT STERLING BOWMAN DO 07/15/2016 C9113 INJ PANTOPRAZOLE SODIUM, VIA STERLING BOWMAN DO 07/15/2016 J1644 INJ HEPARIN SODIUM PER 1000U STERLING BOWMAN DO 07/15/2016 J2405 ONDANSETRON HCL INJECTION STERLING BOWMAN DO 07/15/2016 J7050 NORMAL SALINE SOLUTION INFUS STERLING BOWMAN DO 07/15/2016 Q9967 LOCM 300-399MG/ML IODINE,1ML STERLING BOWMAN DO 07/15/2016 [id number] YAZIDISM OF CARDIAC RHYTHM, SINGLE Jb Mena MD 07/15/2016 Results Test Result Range COMPLETE BLOOD COUNT - 10/31/12 07:22 Platelet 216 10^3u 142-424 MPV 9.9 FL 9.4-12.4 [place] # 0.47 10^3u 0.0-1.0 RBC 4.86 10^6u 4.04-6.13 [place] % 8.2 % 0-12 RDW 13.5 % 11.6-14.8 Neut # 3.89 10^3u 2.0-6.9 Neut % 68.1 % 37-80 WBC 5.72 10^3u 4.60-10.20 MCV 85.6 FL 80.0-97.0 Baso # 0.02 10^3u 0.0-0.1 Baso % 0.3 % 0-2 Eos # 0.22 10^3u 0-0.7 Eos % 3.8 % 0-7 Lymph % 19.6 % 10-50 MCHC 34.1 G/DL 31.8-35.4 MCH 29.2 PG 27.0-31.2 Lymph # 1.12 10^3u 0.6-3.4 HGB 14.2 G/DL 12.2-18.1 HCT 41.6 % 37.7-53.7 Urinalysis - 10/31/12 07:22 Glucose Negative Negative Urine Other CULTURE NOT INDICATED Leukocyte Negative Negative Nitrite Negative Negative pH 6.0 5.5-7.5 Urine Appearance Clear Clear Protein Negative Negative Ketones Negative Negative Urobilinogen 0.2 0.2-1.0 Urine RBC NONESEEN Specific [place] >=1.030 1.010-1.020 Urine WBC NONESEEN Urine Bacteria NONESEEN Blood Negative Negative Color Yellow Yellow SG by Refractometer 1.022 Squamous Epithelial Cells Trace Bilirubin Negative Negative CMP - 10/31/12 07:22 Osmo Calculated 277 MOSM 261-280 Sodium 142 MMOLL 137-145 T. Protein 7.0 G/DL 6.3-8.2 Potassium 4.4 MMOLL 3.6-5.0 T Bili 0.6 MG/DL 0.2-1.3 Calcium 9.4 MG/DL 8.4-10.2 BUN 22 MG/DL 7-21 Chloride 103 MMOLL 98-107 AST 26 U/L 15-46 ALT 26 U/L 7-56 Albumin 4.0 G/DL 3.5-5.0 A/G Ratio 1.3 RATIO 1.2-2.2 Bun/Creat 24.6 RATIO 7-25 Alk Phos 54 U/L 38-126 CO2 31 MMOLL 22-30 Glucose 97 MG/DL 65-110 Globulin 3.0 2.4-3.5 Creatinine 0.9 MG/DL 0.7-1.5 Lipid Profile - 10/31/12 07:22 HDL 50.6 MG/DL 35-100 VLDL 18 0-21 Triglyceride 91 MG/DL 35-160 Cholesterol 209 MG/DL 130-200 LDL Calculated 140 0-130 PSA Screen - 10/31/12 07:22 PSA Screen 0.3 NG/ML <=4.0 TSH - 10/31/12 07:22 TSH 3.31 UIUML 0.35-4.94 CBC - 07/12/13 00:00 HCT 41.5 % 41.9-52.0 HGB 14.4 G/DL 13.0-18.0 MCH 29.0 PG 27-31 MCHC 34.7 G/DL 33-37 MCV 83.5 FL 80-94 MPV 10.0 FL 7.3-10.4 PLT 239 10^3u 130-400 RBC 5.0 10^6u 4.7-6.1 RDW 14.4 % 11.5-15.5 WBC 4.9 10^3u 4.8-10.8 MISCELLANEOUS TEST - 07/12/13 00:00 MISCCOM Report to Follow. MISCRPT SEE MISCTEST [facility] BMP - 07/12/13 00:00 BCR 23.5 10-20 BUN 24 MG/DL 7-18 CA 9.4 MG/DL 8.4-10.2 CL 102 MEQ/L 98-107 CO2 31.0 MEQ/L 22-28 CREA 1.02 MG/DL 0.6-1.3 EGFR 75 eGFR >=60 GLU 90 MG/DL 70-105 K 4.6 MEQ/L 3.5-5.1 NA 138 MEQ/L 134-145 OSMSC 279.3 MOSML 280-300 Anion Gap 5.0 8-16 LD - 07/12/13 00:00 LD 267 IU/L 85-227 AFP TUMOR MARKER - 07/12/13 00:00 AFP TUMOR MARKER 1.8 ng/mL <6.1 COMPLETE BLOOD COUNT - 11/27/14 18:12 Platelet 234 10^3u 142-424 MPV 10.1 FL 9.4-12.4 [place] # 0.60 10^3u 0.0-1.0 RBC 5.01 10^6u 4.04-6.13 [place] % 8.0 % 0-12 RDW 13.6 % 11.6-14.8 Neut # 5.28 10^3u 2.0-6.9 Neut % 70.3 % 37-80 WBC 7.50 10^3u 4.60-10.20 MCV 86.0 FL 80.0-97.0 Baso # 0.02 10^3u 0.0-0.1 Baso % 0.3 % 0-2 Eos # 0.17 10^3u 0-0.7 Eos % 2.3 % 0-7 Lymph % 19.1 % 10-50 MCHC 33.9 G/DL 31.8-35.4 MCH 29.1 PG 27.0-31.2 Lymph # 1.43 10^3u 0.6-3.4 HGB 14.6 G/DL 12.2-18.1 HCT 43.1 % 37.7-53.7 H Pylori Antibody IGG - 11/27/14 18:30 H Pylori Antibody IGG NEG Negative CMP - 11/27/14 18:39 Osmo Calculated 273 MOSM 261-280 Sodium 140 MMOLL 136-145 T. Protein 7.5 G/DL 6.4-8.3 Potassium 4.0 MMOLL 3.5-5.1 T Bili 0.7 MG/DL 0.2-1.2 Calcium 9.6 MG/DL 8.4-10.2 BUN 21 MG/DL 7-26 Chloride 104 MMOLL 98-107 AST 24 U/L 5-34 ALT 25 U/L 0-55 Albumin 4.0 G/DL 3.5-5.0 A/G Ratio 1.1 RATIO 1.2-2.2 Bun/Creat 21 RATIO 7-25 Alk Phos 63 U/L 40-150 CO2 22 MMOLL 22-29 Glucose 85 MG/DL 70-99 Globulin 3.5 G/DL 2.4-3.5 Creatinine 1.0 MG/DL 0.6-1.3 Cardiac Panel - 11/27/14 18:40 CKMB 0.7 NG/ML <=6 Troponin I 0.00 NG/ML <=0.20 CPK 58 U/L 30-170 Myoglobin - 11/27/14 18:40 Myoglobin 30.1 NG/ML 10-85 BNP - 11/27/14 18:40 BNP 29.5 PG/ML <=100 EKG - 11/29/14 13:35 EKG SMR PROTHROMBIN TIME WITH INR - 07/15/16 14:10 INTERNATIONAL NORMAL RATIO 1.2 0.9-1.1 PROTHROMBIN TIME 13.9 sec 10.0-12.8 PARTIAL THROMBOPLASTIN TIME - 07/15/16 14:10 PARTIAL THROMBOPLASTIN TIME 172 sec 25- 37 HEPATIC FUNCTION PANEL - 07/15/16 14:10 BILI UNCONJUGATED 0.8 mg/dL 0.0-0.7 AST/SGOT 71 Units/L 10-37 ALT/SGPT 78 Units/L < 66 TOTAL PROTEIN 7.0 gm/dL 6.4-8.2 ALBUMIN 3.2 gm/dL 3.4-5.0 BILI TOTAL 1.1 mg/dL 0.0-1.0 ALKALINE PHOSPHATASE TOTAL 92 IU/L 45- 117 BILI CONJUGATED 0.3 mg/dL 0.0-0.3 LIPASE - 07/15/16 14:10 LIPASE 100 Units/L 73-393 PTT HEPARIN PROTOCOLS - 07/15/16 15:25 PARTIAL THROMBOPLASTIN TIME 111 sec 25- 37 PTT HEPARIN PROTOCOLS - 07/16/16 00:11 PARTIAL THROMBOPLASTIN TIME 68 sec 25-37 CBC W/DIFF - 07/16/16 04:00 GRANULOCYTE # 10.0 k/cumm 2.0-9.0 GRANULOCYTE % 81 % 50-75 LYMPHOCYTE # 1.0 k/cumm 1.0-4.0 LYMPHOCYTE % 8 % 20-30 MEAN CELL HGB 28.9 pg 27.0-33.0 MEAN CELL HGB CONCENTRATION 34.5 g/dL 32.0-37.0 MEAN CELL VOLUME 83.8 fl 80.0-100.0 MONOCYTE # 1.2 k/cumm 0.1-1.0 MONOCYTE % 10 % 4-6 RED BLOOD CELL 4.32 m/cumm 4.00-6.00 RED CELL DISTRIBUTION WIDTH 13.1 % 11.0- 15.6 WHITE BLOOD CELL 12.2 k/cumm 5.0-10.0 HEMOGLOBIN 12.5 gm/dL 14.0-18.0 HEMATOCRIT 36.2 % 40.0-54.0 PLATELET COUNT 153 k/cumm 150-400 METABOLIC PANEL, COMPREHN - 07/16/16 04:00 POTASSIUM 3.3 mmol/L 3.5-5.3 EST GFR (MDRD) > 60 mL/min > 59 ANION GAP 5 mmol/L 5-15 EST CrCl (CG) > 60 mL/min > 59 GLUCOSE 136 mg/dL 70-99 CALCIUM 8.5 mg/dL 8.5-10.1 BLOOD UREA NITROGEN 16 mg/dL 7-20 CREATININE 0.9 mg/dL 0.7-1.3 SODIUM 137 mmol/L 135-148 CHLORIDE 102 mmol/L 98-110 AST/SGOT 47 Units/L 10-37 ALT/SGPT 68 Units/L < 66 CARBON DIOXIDE 30 mmol/L 21-32 TOTAL PROTEIN 6.4 gm/dL 6.4-8.2 ALBUMIN 2.6 gm/dL 3.4-5.0 BILI TOTAL 0.8 mg/dL 0.0-1.0 ALKALINE PHOSPHATASE TOTAL 76 IU/L 45- 117 THYROID STIM HORMONE (TSH) - 07/16/16 04:00 THYROID STIM HORMONE (TSH) 1.29 uIU/mL 0.34-4.82 THROMBOPHILIA PROFILE, VENOUS - 07/16/16 04:00 DILUTE NOLAN VIPER VENOM TIME NEGATIVE NEGATIVE SILICA CLOTTING TIME NEGATIVE NEGATIVE FACTOR II, DNA NEGATIVE NEGATIVE FACTOR V MUTATION DNA NEGATIVE NEGATIVE BETA-2 GLYCOPROTEIN I AB IGA < 9 0-25 BETA-2 GLYCOPROTEIN I AB IGG < 9 0-20 BETA-2 GLYCOPROTEIN I AB IGM < 9 0-32 AB CARDIOLIPIN IGA <9 APL U/mL 0-11 AB CARDIOLIPIN IGG <9 GPL U/mL 0-14 AB CARDIOLIPIN IGM <9 MPL U/mL 0-12 FACTOR 8 ACTIVITY 227.4 % act 63-177 PLASMINOGEN ACTIVATOR INHIBIT 7.0 IU/mL 0 -27 LIPOPROTEIN (a) 28 nmol/L <75 HOMOCYSTEINE, PLASMA 7.8 mcmol/L 3.7- 13.9 ANTITHROMBIN ACTIVITY 78 % 78-128 PROTEIN C ACTIVITY 70 % act 82-154 PROTEIN S ANTIGEN FREE 78 % 73-137 PTT HEPARIN PROTOCOLS - 07/16/16 06:24 PARTIAL THROMBOPLASTIN TIME 69 sec 25-37 GLUCOSE (POC) - 07/16/16 11:25 GLUCOSE (POC) 126 mg/dL 70-99 HCG TUMOR MARKER - 07/16/16 13:07 HCG TUMOR MARKER <1 mIU/mL 0-3 ALPHA FETOPROTEIN TUMOR MARKER - 07/16/16 13:07 ALPHA FETOPROTEIN TUMOR MARKER 2.1 ng/mL 0.0-8.3 PTT HEPARIN PROTOCOLS - 07/17/16 03:22 PARTIAL THROMBOPLASTIN TIME 57 sec 25-37 METABOLIC PANEL, BASIC - 07/17/16 03:22 POTASSIUM 4.0 mmol/L 3.5-5.3 EST GFR (MDRD) > 60 mL/min > 59 ANION GAP 5 mmol/L 5-15 EST CrCl (CG) > 60 mL/min > 59 GLUCOSE 124 mg/dL 70-99 CALCIUM 8.5 mg/dL 8.5-10.1 BLOOD UREA NITROGEN 17 mg/dL 7-20 CREATININE 1.0 mg/dL 0.7-1.3 SODIUM 142 mmol/L 135-148 CHLORIDE 106 mmol/L 98-110 CARBON DIOXIDE 31 mmol/L 21-32 CBC W/DIFF - 07/17/16 03:22 EOSINOPHIL # 0.1 k/cumm 0.1-0.5 EOSINOPHIL % 1 % 2-4 GRANULOCYTE # 9.7 k/cumm 2.0-9.0 GRANULOCYTE % 80 % 50-75 LYMPHOCYTE # 0.9 k/cumm 1.0-4.0 LYMPHOCYTE % 8 % 20-30 MEAN CELL HGB 28.7 pg 27.0-33.0 MEAN CELL HGB CONCENTRATION 33.0 g/dL 32.0-37.0 MEAN CELL VOLUME 87.1 fl 80.0-100.0 MONOCYTE # 1.3 k/cumm 0.1-1.0 MONOCYTE % 11 % 4-6 RED BLOOD CELL 4.04 m/cumm 4.00-6.00 RED CELL DISTRIBUTION WIDTH 13.8 % 11.0- 15.6 WHITE BLOOD CELL 12.1 k/cumm 5.0-10.0 HEMOGLOBIN 11.6 gm/dL 14.0-18.0 HEMATOCRIT 35.2 % 40.0-54.0 PLATELET COUNT 203 k/cumm 150-400 CBC - 07/18/16 04:11 MEAN CELL HGB 28.9 pg 27.0-33.0 MEAN CELL HGB CONCENTRATION 33.4 g/dL 32.0-37.0 MEAN CELL VOLUME 86.4 fl 80.0-100.0 RED BLOOD CELL 4.12 m/cumm 4.00-6.00 RED CELL DISTRIBUTION WIDTH 13.4 % 11.0- 15.6 WHITE BLOOD CELL 10.3 k/cumm 5.0-10.0 HEMOGLOBIN 11.9 gm/dL 14.0-18.0 HEMATOCRIT 35.6 % 40.0-54.0 PLATELET COUNT 269 k/cumm 150-400 PTT HEPARIN PROTOCOLS - 07/18/16 04:11 PARTIAL THROMBOPLASTIN TIME 60 sec 25-37 METABOLIC PANEL, [facility] - 07/18/16 04:11 POTASSIUM 3.9 mmol/L 3.5-5.3 EST GFR (MDRD) > 60 mL/min > 59 ANION GAP 9 mmol/L 5-15 EST CrCl (CG) > 60 mL/min > 59 GLUCOSE 97 mg/dL 70-99 CALCIUM 9.0 mg/dL 8.5-10.1 BLOOD UREA NITROGEN 19 mg/dL 7-20 CREATININE 1.1 mg/dL 0.7-1.3 SODIUM 138 mmol/L 135-148 CHLORIDE 99 mmol/L 98-110 AST/SGOT 61 Units/L 10-37 ALT/SGPT 82 Units/L < 66 CARBON DIOXIDE 30 mmol/L 21-32 TOTAL PROTEIN 6.8 gm/dL 6.4-8.2 ALBUMIN 2.4 gm/dL 3.4-5.0 BILI TOTAL 1.7 mg/dL 0.0-1.0 ALKALINE PHOSPHATASE TOTAL 130 IU/L 45- 117 [facility] - 07[facility]21/16 04:48 POTASSIUM 4.0 mmol/L 3.5-5.3 EST GFR (MDRD) > 60 mL/min > 59 ANION GAP 9 mmol/L 5-15 EST CrCl (CG) > 60 mL/min > 59 GLUCOSE 108 mg/dL 70-99 CALCIUM 8.0 mg/dL 8.5-10.1 BLOOD UREA NITROGEN 14 mg/dL 7-20 CREATININE 0.8 mg/dL 0.7-1.3 SODIUM 141 mmol/L 135-148 CHLORIDE 103 mmol/L 98-110 AST/SGOT 76 Units/L 10-37 ALT/SGPT 148 Units/L < 66 CARBON DIOXIDE 29 mmol/L 21-32 TOTAL PROTEIN 5.6 gm/dL 6.4-8.2 ALBUMIN 2.3 gm/dL 3.4-5.0 BILI TOTAL 1.0 mg/dL 0.0-1.0 ALKALINE PHOSPHATASE TOTAL 205 IU/L 45- 117 CBC W/DIFF - 07/21/16 04:48 EOSINOPHIL # 0.2 k/cumm 0.1-0.5 EOSINOPHIL % 1 % 2-4 GRANULOCYTE # 8.9 k/cumm 2.0-9.0 GRANULOCYTE % 79 % 50-75 LYMPHOCYTE # 1.0 k/cumm 1.0-4.0 LYMPHOCYTE % 9 % 20-30 MEAN CELL HGB 28.3 pg 27.0-33.0 MEAN CELL HGB CONCENTRATION 32.2 g/dL 32.0-37.0 MEAN CELL VOLUME 87.8 fl 80.0-100.0 MONOCYTE # 1.1 k/cumm 0.1-1.0 MONOCYTE % 10 % 4-6 RED BLOOD CELL 4.03 m/cumm 4.00-6.00 RED CELL DISTRIBUTION WIDTH 13.8 % 11.0- 15.6 WHITE BLOOD CELL 11.2 k/cumm 5.0-10.0 HEMOGLOBIN 11.4 gm/dL 14.0-18.0 HEMATOCRIT 35.4 % 40.0-54.0 PLATELET COUNT 441 k/cumm 150-400 AB NEUROMYELITIS OPT IgG - 07/22/16 06:13 AB NEUROMYELITIS OPT IgG <1.5 U/mL 0.0- 3.0 CBC W/DIFF - 07/24/16 16:28 EOSINOPHIL # 0.2 k/cumm 0.1-0.5 EOSINOPHIL % 2 % 2-4 GRANULOCYTE # 6.5 k/cumm 2.0-9.0 GRANULOCYTE % 76 % 50-75 LYMPHOCYTE # 1.1 k/cumm 1.0-4.0 LYMPHOCYTE % 13 % 20-30 MEAN CELL HGB 29.0 pg 27.0-33.0 MEAN CELL HGB CONCENTRATION 32.3 g/dL 32.0-37.0 MEAN CELL VOLUME 89.5 fl 80.0-100.0 MONOCYTE # 0.8 k/cumm 0.1-1.0 MONOCYTE % 9 % 4-6 RED BLOOD CELL 4.11 m/cumm 4.00-6.00 RED CELL DISTRIBUTION WIDTH 13.9 % 11.0- 15.6 WHITE BLOOD CELL 8.6 k/cumm 5.0-10.0 HEMOGLOBIN 11.9 gm/dL 14.0-18.0 HEMATOCRIT 36.8 % 40.0-54.0 PLATELET COUNT 454 k/cumm 150-400 METABOLIC PANEL, [facility] - 07/24/16 16:28 POTASSIUM 3.4 mmol/L 3.5-5.3 EST GFR (MDRD) > 60 mL/min > 59 ANION GAP 6 mmol/L 5-15 EST CrCl (CG) > 60 mL/min > 59 GLUCOSE 81 mg/dL 70-99 CALCIUM 8.8 mg/dL 8.5-10.1 BLOOD UREA NITROGEN 19 mg/dL 7-20 CREATININE 1.0 mg/dL 0.7-1.3 SODIUM 141 mmol/L 135-148 CHLORIDE 100 mmol/L 98-110 AST/SGOT 101 Units/L 10-37 ALT/SGPT 207 Units/L < 66 CARBON DIOXIDE 35 mmol/L 21-32 TOTAL PROTEIN 7.1 gm/dL 6.4-8.2 ALBUMIN 2.7 gm/dL 3.4-5.0 BILI TOTAL 0.7 mg/dL 0.0-1.0 ALKALINE PHOSPHATASE TOTAL 202 IU/L 45- 117 MAGNESIUM - 07/24/16 16:28 MAGNESIUM 2.2 mg/dL 1.8-2.4 GLUCOSE (POC) - 07/25/16 12:26 GLUCOSE (POC) 137 mg/dL 70-99 URINALYSIS, ROUTINE - 07/25/16 15:15 UA LEUKOCYTE ESTERASE DIPSTICK NEGATIVE NEGATIVE UA NITRITE DIPSTICK NEGATIVE NEGATIVE UA PROTEIN DIPSTICK NEGATIVE NEGATIVE UA GLUCOSE DIPSTICK NEGATIVE NEGATIVE UA KETONE DIPSTICK NEGATIVE NEGATIVE UA UROBILINOGEN DIPSTICK NORMAL NORMAL UA BILIRUBIN DIPSTICK NEGATIVE NEGATIVE UA BLOOD DIPSTICK NEGATIVE NEGATIVE UA SPECIFIC GRAVITY 1.009 1.015-1.025 UR PH 7.0 5.0-7.0 RENAL FUNCTION PANEL - 07/25/16 18:10 POTASSIUM 3.2 mmol/L 3.5-5.3 EST GFR (MDRD) > 60 mL/min > 59 ANION GAP 8 mmol/L 5-15 EST CrCl (CG) > 60 mL/min > 59 GLUCOSE 147 mg/dL 70-99 CALCIUM 8.8 mg/dL 8.5-10.1 BLOOD UREA NITROGEN 16 mg/dL 7-20 CREATININE 1.0 mg/dL 0.7-1.3 SODIUM 140 mmol/L 135-148 CHLORIDE 98 mmol/L 98-110 CARBON DIOXIDE 34 mmol/L 21-32 ALBUMIN 2.6 gm/dL 3.4-5.0 PHOSPHORUS 2.9 mg/dL 2.5-4.9 CREATINE KINASE (CK/CPK) - 07/25/16 18:10 CREATINE KINASE (CK/CPK) 114 Units/L < 309 MAGNESIUM - 07/25/16 18:10 MAGNESIUM 2.2 mg/dL 1.8-2.4 CBC W/DIFF - 07/26/16 05:20 EOSINOPHIL # 0.2 k/cumm 0.1-0.5 EOSINOPHIL % 3 % 2-4 GRANULOCYTE # 5.4 k/cumm 2.0-9.0 GRANULOCYTE % 71 % 50-75 LYMPHOCYTE # 1.1 k/cumm 1.0-4.0 LYMPHOCYTE % 15 % 20-30 MEAN CELL HGB 28.2 pg 27.0-33.0 MEAN CELL HGB CONCENTRATION 31.8 g/dL 32.0-37.0 MEAN CELL VOLUME 88.7 fl 80.0-100.0 MONOCYTE # 0.8 k/cumm 0.1-1.0 MONOCYTE % 11 % 4-6 RED BLOOD CELL 4.08 m/cumm 4.00-6.00 RED CELL DISTRIBUTION WIDTH 13.9 % 11.0- 15.6 WHITE BLOOD CELL 7.6 k/cumm 5.0-10.0 HEMOGLOBIN 11.5 gm/dL 14.0-18.0 HEMATOCRIT 36.2 % 40.0-54.0 PLATELET COUNT 390 k/cumm 150-400 METABOLIC PANEL, [facility] - 07/26/16 05:20 POTASSIUM 3.7 mmol/L 3.5-5.3 EST GFR (MDRD) > 60 mL/min > 59 ANION GAP 5 mmol/L 5-15 EST CrCl (CG) > 60 mL/min > 59 GLUCOSE 104 mg/dL 70-99 CALCIUM 8.6 mg/dL 8.5-10.1 BLOOD UREA NITROGEN 17 mg/dL 7-20 CREATININE 1.0 mg/dL 0.7-1.3 SODIUM 141 mmol/L 135-148 CHLORIDE 101 mmol/L 98-110 AST/SGOT 128 Units/L 10-37 ALT/SGPT 196 Units/L < 66 CARBON DIOXIDE 35 mmol/L 21-32 TOTAL PROTEIN 6.4 gm/dL 6.4-8.2 ALBUMIN 2.2 gm/dL 3.4-5.0 BILI TOTAL 0.6 mg/dL 0.0-1.0 ALKALINE PHOSPHATASE TOTAL 159 IU/L 45- 117 PHOSPHORUS - 07/26/16 05:20 PHOSPHORUS 2.9 mg/dL 2.5-4.9 MAGNESIUM - 07/26/16 05:20 MAGNESIUM 2.2 mg/dL 1.8-2.4 DIGOXIN (LANOXIN) - 07/26/16 05:20 DIGOXIN (LANOXIN) 1.3 ng/mL 0.8-2.0 Encounters ACCT No. Visit Date/Time Discharge Status Pt. Type Provider Facility Loc./Unit Complaint [id number] 07/25/2013 07:49:00 07/25/2013 07 :49:00 DIS Outpatient BENJAMÍN BURGESS [facility] RAD [id number] 07/12/2013 10:34:00 07/12/2013 16 :20:00 DIS Inpatient BENJAMÍN BURGESS [facility] OPS [id number] 01/13/2013 00:00:00 Document Registration
[2016-08-09 18:39] VITALS: BP 111/78
[2016-08-09] MEDS ORDERED: ZOLPIDEM 5 MG (AMBIEN) TAB PO PRN (20:30)
--- NOTE | 2016-08-09 20:31 | PM & R (SOAP) Progress Note ---
Subjective Time Seen by Provider: 20:20 Subjective/Events-last exam Patient was seen in his room this evening Patient requests ambien for sleep Patient min assist for transfers,Appreciate Dr Peguero and Connie and Cardiologys notes and orders. Objective Exam Last Set of Vital Signs Vital Signs Date Time Temp Pulse Resp B/P (MAP) Pulse Ox O2 Delivery O2 Flow Rate FiO2 08/09/16 18:39 98.9 57 16 111/78 99 Room Air Capillary Refill : I&O Intake and Output 08/09/16 00:00 Intake Total 400 ml Balance 400 ml Intake Oral 400 ml # Voids 3 General: Alert, Oriented X3, Cooperative HEENT: Atraumatic, PERRLA Neck: Supple, No JVD, No Thyromegaly Lungs: Clear to Auscultation, Normal Air Movement Heart: Regular Rate, Normal S1, Normal S2, No Murmurs Abdomen: Normal Bowel Sounds, Soft Extremities: No Clubbing, No Cyanosis Skin: No Rashes Neuro: Normal Gait Results Lab Laboratory Tests 08/07/16 05:16: White Blood Count 7.9, Red Blood Count 4.34L, Hemoglobin 12.3L, Hematocrit 37L, Mean Corpuscular Volume 86, Mean Corpuscular Hemoglobin 28, Mean Corpuscular Hemoglobin Concent 33, Red Cell Distribution Width 13.7, Platelet Count 428H, Mean Platelet Volume 9.3, Neutrophils (%) (Auto) 64, Lymphocytes (%) (Auto) 16, Monocytes (%) (Auto) 8, Eosinophils (%) (Auto) 12H, Basophils (%) (Auto) 0, Neutrophils # (Auto) 5.0, Lymphocytes # (Auto) 1.3, Monocytes # (Auto) 0.6, Eosinophils # (Auto) 0.9H, Basophils # (Auto) 0.0, Sodium Level 139, Potassium Level 3.7, Chloride Level 106, Carbon Dioxide Level 22, Anion Gap 11, Blood Urea Nitrogen 23H, Creatinine 1.15, Estimat Glomerular Filtration Rate > 60, BUN /Creatinine Ratio 20, Glucose Level 101, Calcium Level 8.7, Total Bilirubin 0.6 , Aspartate Amino Transf (AST/SGOT) 27, Alanine Aminotransferase (ALT/SGPT) 48, Alkaline Phosphatase 104, Total Protein 6.9, Albumin 3.3 08/08/16 05:03: Vitamin B12 Level 325, Thyroid Stimulating Hormone (TSH) 4.55 Assessment/Plan Assessment 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 MATI OSUNA MD Aug 09, 2016 20:31
[2016-08-09] MEDS: ATORVASTATIN 40 MG (LIPITOR) TABLET PO SCH (21:15)
[2016-08-10 05:56] VITALS: BP 100/58
[2016-08-10] MEDS: PANTOPRAZOLE 40 MG (PROTONIX) TAB PO SCH ×2 (06:23→20:16)
[2016-08-10] MEDS: CATHETER FLUSH 10 ML SYR IV SCH ×3 (06:23→20:18)
--- NOTE | 2016-08-10 07:16 | Occupational Ther Daily Note ---
OT Current Status-Daily Note Subjective Pt alert, sitting in recliner. Pt agreed to therapy. Stated that he slept much better last night. No c/o pain at this time. Mental Status/Objective Patient Orientation: Person, Place, Time, Situation Functional [place] Measure 0=Not Assessed/NA 4=Minimal Assistance 1=Total Assistance 5=Supervision or Setup 2=Maximal Assistance 6=Modified [place] 3=Moderate Assistance 7=Complete [place] ADL-Treatment Pt has demonstrated improvement on awareness of situations that will lead to LOB. Pt stated that his and family were putting up grabbars and rails in his home today. Functional [place] Measure 0=Not Assessed/NA 4=Minimal Assistance 1=Total Assistance 5=Supervision or Setup 2=Maximal Assistance 6=Modified [place] 3=Moderate Assistance 7=Complete IndependenceIRFPAI Quality Coding Scale 6 Independent with activity with or without an assistive device 5 Patient requires set up or clean up by helper. Patient completes activity by themselves 4 Supervision or touching assist (CGA). [place] provide cues , steadying assist 3 The helper provides less than half the effort to complete the activity 2 The helper provides more than half the effort to complete the activity 1 Dependent. The helper does all the effort to complete an activity 7 Patient refused to complete or attempt activity 9 The patient did not perform the activity before the current illness or injury 88 Not attempted due to Medical conditions or safety concerns Grooming (FIM): 6 (Using FWW, pt is able to complete standing at sink.) Oral Hygiene (QC): 6 (Using FWW, pt is able to complete standing at sink.) Bathing (FIM): 6 (Using shower bench, grabbars and hand held shower pt is able to complete on own.) Bathing Location: L Arm, R Arm, L Upper Leg, R Upper Leg, L Lower Leg ( including foot), R Lower Leg (including foot), Chest, Abdomen, Buttocks, Perineal Area Shower/Bathe Self (QC): 6 (Using shower bench, grabbars and hand held shower pt is able to complete on own.) Upper Body (FIM): 5 (Supervision. Pt was able to retrieve his clothing from closet with FWW. Pt donned/doffed clothing by self.) Upper Body Dressing (QC): 5 (Supervision. Pt was able to retrieve his clothing from closet with FWW. Pt donned/doffed clothing by self.) Lower Body Dressing (FIM): 5 (Supervision. Pt was able to retrieve his clothing from closet with FWW. Pt donned/doffed clothing by self.) Lower Body Dressing (QC): 5 (Supervision. Pt was able to retrieve his clothing from closet with FWW. Pt donned/doffed clothing by self.) On/Off Footwear (QC): 5 (Supervision. Pt was able to retrieve his clothing from closet with FWW. Pt donned/doffed clothing by self.) Toileting (FIM): 6 (Using grabbar and FWW, pt is able to complete by self.) Toileting Hygiene (QC): 6 (Using grabbar and FWW, pt is able to complete by self.) Transfers (B, C, W/C) (FIM): 6 (Using FWW, pt is able to complete by self.) Toilet/Commode Transfer (FIM): 6 (Using grabbar and FWW, pt is able to complete by self.) Toilet Transfer (QC): 6 (Using grabbar and FWW, pt is able to complete by self. ) Shower Transfer(FIM): 6 (Using grabbar and FWW, pt is able to complete by self. ) Other Treatment Pt ambulated to therapy gym with SBA using FWW. Pt more mindful of speed when turning and making sure that L foot is not dragging during turn. 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 Dowel gladys exercises with 2# wt attached 2 sets 15 reps. Pt given red (medium resistance) theraband for home exercises program. Pt demonstrated understanding of each of the 4 exercises. After therapy, pt sitting in recliner with call light/phone in reach. All needs met in room. Education OT Patient Education: Home exercise program, Safety issues Teaching Recipient: Patient Teaching Methods: Demonstration, Discussion Response to Teaching: Verbalize Understanding, Return Demonstration OT Short Term Goals Short Term Goals Time Frame: Aug 14, 2016 Bathing(FIM): 5 Lower Body Dressing(FIM): 5 Transfers (B,C,W/C) (FIM): 6 Toilet/Commode Transfer(FIM): 5 Additional Short Term Goals: 1-Demonstrate ADL Tasks, 2-Verbalize Understanding , 3-ImproveStrength/Elyse 1=Demonstrate adherence to instructed precautions during ADL tasks. 2=Patient will verbalize/demonstrate understanding of assistive devices/ modifications for ADL. 3=Patient will improve strength/tolerance for activity to enable patient to perform ADL's. OT Mcfp Goals Burr Sander Goals Time Frame: Aug 28, 2016 Eating (FIM): 6 Eating (QC): 6 Groomin Oral Hygiene (QC): 6 Bathing(FIM): 6 Shower/Bathe Self (QC): 6 Upper Body Dressing(FIM): 6 Upper Body Dressing (QC): 6 Lower Body Dressing(FIM): 6 Lower Body Dressing (QC): 6 On/Off Footwear (QC): 6 Toileting(FIM): 6 Toileting Hygiene (QC): 6 Toilet/Commode Transfer(FIM): 6 Toilet/Commode Transfer (QC): 6 Shower Transfer(FIM): 6 Additional Goals: 1-Demonstrate ADL Tasks, 2-Verbalize Understanding, 3- ImproveStrength/Elyse 1=Demonstrate adherence to instructed precautions during ADL tasks. 2=Patient will verbalize/demonstrate understanding of assistive devices/ modifications for ADL. 3=Patient will improve strength/tolerance for activity to enable patient to perform ADL's. OT Education/Plan Problem List/Assessment Pt to benefit from skilled OT intervention for ADL training, transfers, strengthening, and safety education to maximize level of function and allow safe discharge. Discharge Recommendations Plan/Recommendations: Continue POC Treatment Plan/Plan of Care Patient would benefit from OT for education, treatment and training to promote independence in ADL's, mobility, safety and/or upper extremity function for ADL' s. Plan of Care: ADL Retraining, Functional Mobility, Group Exercise/Act as Ind, UE Funct Exercise/Act, UE Neuromus Re-Ed/Coord Treatment Duration: Aug 28, 2016 Visits Per Week: 10-12 Minutes/Day (M-F): 60-90 Minutes/Day (Sat/Collier): PRN Agreement: Yes Rehab Potential: Good Time/GCodes Start Time: 07:00 Stop Time: 08:00 Total Time Billed (hr/min): 60 Billed Treatment Time 1 visit-ADL 2 (30 min) EX 2 (30 min) MACK [place] Aug 10, 2016 07:16
--- NOTE | 2016-08-10 08:13 | Cardiology Progress Note ---
Subjective Date Seen by Provider: Aug 10, 2016 Time Seen by Provider: 08:11 Subjective/Events-last exam Patient is feeling better, back to his baseline, no chest pain, no palpitations Review of Systems General: No Chills, No Night Sweats, No Fatigue, No Malaise, No Appetite, No Other HEENT: No Head Aches, No Visual Changes, No Eye Pain, No Ear Pain, No Dysphasia , No Sinus Congestion, No Post Nasal Drip, No Sore Throat, No Other Pulmonary: No Dyspnea, No Cough, No Pleuritic Chest Pain, No Other Cardiovascular: No: Chest Pain, Edema, Lt Headedness, Orthopnea, Other, Palpitations, Paroxysmal Noc. Dyspnea Objective-Cardiology Exam Last Set of Vital Signs Vital Signs 08/10/16 05:56 Temp 98.2 Pulse 64 Resp 16 B/P (MAP) 100/58 Pulse Ox 95 O2 Delivery Room Air Capillary Refill : I&O Intake and Output 08/10/16 00:00 Intake Total 2100 ml Balance 2100 ml Intake Oral 2100 ml # Voids 6 # Bowel Movements 1 General: Alert, Oriented X3, Cooperative HEENT: Atraumatic, PERRLA Neck: Supple, No JVD, No Thyromegaly Lungs: Clear to Auscultation, Normal Air Movement Heart: Regular Rate, Normal S1, Normal S2, No Murmurs Abdomen: Normal Bowel Sounds, Soft Extremities: No Clubbing, No Cyanosis Skin: No Rashes Neuro: Normal Gait A/P-Cardiology Admission Diagnosis Paroxysmal atrial fibrillation DVT/PE Vertigo Ataxia Hypertension Assessment/Plan Paroxysmal atrial fibrillation, underwent electrical cardioversion in [place] and he was unable to maintain sinus rhythm, started on Rythmol and Xarelto, Rythmol was discontinued and dizziness significantly improved. I will try Flecainide and evaluate tolerance Deep venous thrombosis/pulmonary embolism, unprovoked, started on Xarelto. Ataxia, dizziness, dysarthria, worsening symptoms, extensive workup was done at , evaluated by ENT, neurologist, unable to pinpoint the cause of his dizziness. Patient has history of chronic dizziness and strong family history of dizziness but he was able to function previously, since his last hospitalization earlier this month he has been unable to function due to severe vertigo and ataxia with dizziness. Dizziness improved significantly since discontinuing Rythmol. Hypertension, controlled, continue to monitor blood pressure Clinical Quality Measures DVT/VTE Risk/Contraindication: Risk Factor Score Per Nursin RFS Level Per Nursing on Admit: 4+=Very High LUCILA KINCAID MD Aug 10, 2016 08:13
--- NOTE | 2016-08-10 08:48 | Progress Note (SOAP) ---
Subjective Time Seen by Provider: 08:45 Subjective/Events-last exam possible stroke. Patient feeling much better. Patient states he feels that he is improved much Objective Exam Vital Signs Date Time Temp Pulse Resp B/P (MAP) Pulse Ox O2 Delivery O2 Flow Rate FiO2 08/10/16 05:56 98.2 64 16 100/58 95 Room Air 08/10/16 01:00 61 08/09/16 20:50 Room Air 08/09/16 19:00 65 08/09/16 18:39 98.9 57 16 111/78 99 Room Air 08/09/16 13:00 58 08/09/16 09:00 94 Room Air I & O 08/10/16 07:00 Intake Total 1500 ml Balance 1500 ml Capillary Refill : General Appearance: No Apparent Distress, WD/WN HEENT: Normal ENT Inspection Neck: Full Range of Motion, Normal Inspection Respiratory: Chest Non Tender, Lungs Clear, Normal Breath Sounds, No Accessory Muscle Use, No Respiratory Distress Cardiovascular: Regular Rate, Rhythm, No Murmur Assessment/Plan Assessment/Plan Assess & Plan/Chief Complaint proximal atrial fibrillation. PE and DVT. Dizziness. DVT. Hypertension. Vertigo versus dizziness. Possible stroke. Patient work in progress. Patient using a walker. . 08/10/16. history of atrial fibrillation. PE and DVT. Dizziness. Possible stroke. Patient feeling much better area Patient had good night sleep Clinical Quality Measures DVT/VTE Risk/Contraindication: Risk Factor Score Per Nursin RFS Level Per Nursing on Admit: 4+=Very High MALISSA NELSON DO Aug 10, 2016 08:48
--- NOTE | 2016-08-10 08:50 | PM & R (SOAP) Progress Note ---
Subjective Time Seen by Provider: 07:40 Subjective/Events-last exam Patient was seen in his room this AM and on common unit with PT Patient CGA to min assist for gailt with walker Balance improving as well as endurance Appreciate DR Meza note Review of Systems Neurological: Other (impaired balance) Objective Exam Last Set of Vital Signs Vital Signs Date Time Temp Pulse Resp B/P (MAP) Pulse Ox O2 Delivery O2 Flow Rate FiO2 08/10/16 05:56 98.2 64 16 100/58 95 Room Air Capillary Refill : I&O Intake and Output 08/10/16 00:00 Intake Total 2100 ml Balance 2100 ml Intake Oral 2100 ml # Voids 6 # Bowel Movements 1 General: Alert, Oriented X3, Cooperative HEENT: Atraumatic, PERRLA Neck: Supple, No JVD, No Thyromegaly Lungs: Clear to Auscultation, Normal Air Movement Heart: Regular Rate, Normal S1, Normal S2, No Murmurs Abdomen: Normal Bowel Sounds, Soft Extremities: No Clubbing, No Cyanosis Skin: No Rashes Neuro: Normal Gait Results Lab Laboratory Tests 08/08/16 05:03: Vitamin B12 Level 325, Thyroid Stimulating Hormone (TSH) 4.55 Assessment/Plan Assessment 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 MATI OSUNA MD Aug 10, 2016 08:49
--- NOTE | 2016-08-10 08:58 | Individualized Plan of Care ---
Individualized Plan of Care Rehab Nursing IPOC Order Admission Date Aug 06, 2016 at 18:43 Current Orders Orders Rivaroxaban Tablet (Xarelto Tablet) (08/10/16 17:00) Patient Visit (08/09/16 ) Speech Sound Lang Comp (08/09/16 ) Patient Visit (08/09/16 ) Gait Training, Ea 15 Min (08/09/16 ) Exercise Therap, Ea 15 Min (08/09/16 ) Ex Neuromuscular, Ea 15 Min (08/09/16 ) Patient Visit (08/09/16 ) Zolpidem Tablet (Ambien Tablet) (08/09/16 20:30) Basic Metabolic Panel (08/11/16 05:00) Magnesium (08/11/16 05:00) Ekg Tracing (08/11/16 06:00) Flecainide Tablet (Tambocor Tablet) (08/10/16 09:00) Rehab Nursing Orders: Diseage Management, Edu in Press Rel Techn, Hydration Management, Nutrition Management Toilet every (bladder): (hrs): 2 hours while awke PRN PT IPOC Problem List: Activity Tolerance, Functional Strength, Safety, Balance, Gait, Transfer Treatment Plan: Continue Plan of Care Education, Functional Activity [place]se, Group Therapy, Gait, Safety, Therapeutic Exercise Treatment Duration: Aug 20, 2016 Visits Per Week: 11 Minutes/Day (M-F): 90 Minutes/Day (Sat/Collier): 15 OT IPOC Problems: Decreased Activ Tolerance, Dependent Transfers, Impaired Coordination , Impaired Funct Balance, Impaired Self-Care Skills OT Problems Pt to benefit from skilled OT intervention for ADL training, transfers, strengthening, and safety education to maximize level of function and allow safe discharge. Plan of Care: ADL Retraining, Functional Mobility, Group Exercise/Act as Ind, UE Funct Exercise/Act, UE Neuromus Re-Ed/Coord Treatment Duration: Aug 28, 2016 Visits Per Week: 10-12 Minutes/Day (M-F): 60-90 Minutes/Day (Sat/Collier): PRN ST IPOC Speech Therapy Treatment Plan: Discontinue ST Physician IPOC Medical Issues being managed closely and that require the 24 hour availability of a physician: antiarrythmic med adjustment with decreased dizziness Insomnia DVT/PE recent on OAC HTN Medical Issues: DVT Prophylaxis, Falls Precautions, Fluid/Electrolyte/ Nutrition Balance, Other (List) (as per above) Brief Synthesis of Preadmission Screen, Post-Admission Evaluation, and Therapy Evaluations:61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 and lives in [facility] who sustatined a Leg DVT followed PE and then bout of AFib Placed on Rythmol but had dizziness Bootmaker Hand has changed to Flecanide Recently diagnosed with cerebellar ataxia at [facility] referred her for ongoing care and therapies Medical Prognosis: good Anticipated Length of Stay: 2 weeks Rehab Goals Modified Independent for adls and mobility skiulls with decreased dizziness and gait imbalance Anticipated discharge destinat: home with spouse and [facility] MATI OSUNA MD Aug 10, 2016 08:57
[2016-08-10] MEDS: acetaZOLAMIDE 250 MG (DIAMOX) TAB PO SCH ×2 (09:45→20:16)
[2016-08-10] MEDS: FLECAINIDE 100 MG (TAMBOCOR) TAB PO SCH ×2 (09:46→20:16)
[2016-08-10] MEDS: ASPIRIN 81 MG CHEW (CHILDREN'S ASA) PO SCH (09:46)
[2016-08-10] MEDS: DIGOXIN 0.25 MG (LANOXIN) TAB PO SCH (09:46)
[2016-08-10] MEDS: meTOprolol TARTRATE 25 MG (LOPRESSOR) TABLET PO SCH ×2 (09:46→20:16)
--- NOTE | 2016-08-10 10:59 | Physical Therapy Daily Note ---
PT Daily Note-Current Subjective Patient in recliner pre tx, agrees to PT, no complaints of pain. Patient states he is feeling much better and has had no recent dizziness. He also states that he would like to go back home [place]. Appearance Patient in recliner post tx, has nurse call, phone, tray, all needs met. Chair alarm turned off, in fact, nurse notified to have patient be independent in his room using a rolling walker. Mental Status Patient Orientation: Normal For Age Transfers Functional [place] Measure 0=Not Assessed/NA 4=Minimal Assistance 1=Total Assistance 5=Supervision or Setup 2=Maximal Assistance 6=Modified [place] 3=Moderate Assistance 7=Complete IndependenceIRFPAI Quality Coding Scale 6 Independent with activity with or without an assistive device 5 Patient requires set up or clean up by helper. Patient completes activity by themselves 4 Supervision or touching assist (CGA). [place] provide cues , steadying assist 3 The helper provides less than half the effort to complete the activity 2 The helper provides more than half the effort to complete the activity 1 Dependent. The helper does all the effort to complete an activity 7 Patient refused to complete or attempt activity 9 The patient did not perform the activity before the current illness or injury 88 Not attempted due to Medical conditions or safety concerns Transfers (B, C, W/C) (FIM): 6 Sit to/from Stand: 6 Gait Training Gait (FIM): 6 Distance: 1000'x2 Gait Assistive Device: FWW Patient ambulated outside over community surfaces (uneven and ramp) with mod I, no LOB or unsteadiness Exercises NuStep Minutes: 15 NuStep Workload: 6 Neuromuscular Tinetti was performed, scored a 23/28, needs to use a rolling walker. Treatments transfers, ambulation, functional strengthening, balance training Assessment Current Status: Fair Progress Balance improving, he is mod I with ambulation, I in his room using a rolling walker. PT Short Term Goals Short Term Goals Time Frame: Aug 13, 2016 Transfers (B,C,W/C) (FIM): 6 Gait (FIM): 5 Distance (FIM): 3=150 ft Gait Distance Comment: 300 Gait Level of Assist: 5 Gait Assistive Device: FWW Stairs (FIM): 4 # of Steps: 12 Stairs Level of Assist: 4 PT Long-Term Goals It Field Technician Goals PT It Field Technician Goals Time Frame: Aug 20, 2016 Transfers (B,C,W/C) (FIM): 6 Sit to Lying (QC): 6 Lying-Sitting on Side/Bed(QC): 6 Sit to Stand (QC): 6 Rollin Roll Left to Right (QC): 6 Chair/Zbi-tm-Oytuf Xfer(QC): 6 Car Transfer (QC): 6 Does the Patient Walk: Yes Gait distance (FIM): 3=150 ft Distance: 500 Walk 10 feet (QC): 6 Walk 10ft-Uneven Surface(QC): 6 Walk 50ft with 2 Turns (QC): 6 Walk 150 ft (QC): 6 Gait Level of Assist: 6 Gait Assistive Device: FWW, Cane Single Point Stairs (FIM): 6 # of Steps: 12 1 Step (curb) (QC): 6 4 Steps (QC): 6 12 Steps (QC): 6 Stairs Level Of Assist: 6 Picking up an Object (QC): 6 PT Plan Problem List Problem List: Activity Tolerance, Functional Strength, Safety, Balance, Gait, Transfer Treatment/Plan Treatment Plan: Continue Plan of Care Treatment Plan: Education, Functional Activity Elyse, Group Therapy, Gait, Safety, Therapeutic Exercise Treatment Duration: Aug 20, 2016 Visits Per Week: 11 Minutes/Day (M-F): 90 Minutes/Day (Sat/O[place]lier): 15 Safety Risks/Education Patient Education: Gait Training, Transfer Techniques, Correct Positioning, Safety Issues Teaching Recipient: Patient Teaching Methods: Demonstration, Discussion Response to Teaching: Reinforcement Needed Time/GCodes Time In: 1000 Time Out: 1100 Total Billed Treatment Time: 60 Total Billed Treatment 1 visit GT 30' EX 15' NM 15' DANTE ERVIN PT Aug 10, 2016 10:59
--- NOTE | 2016-08-10 14:04 | Physical Therapy Daily Note ---
PT Daily Note-Current Subjective Patient in recliner pre tx, agrees to PT, no complaints of pain. Appearance Patient in recliner post tx with nurse call, phone, tray, all needs met. Mental Status Patient Orientation: Normal For Age Transfers Functional [place] Measure 0=Not Assessed/NA 4=Minimal Assistance 1=Total Assistance 5=Supervision or Setup 2=Maximal Assistance 6=Modified [place] 3=Moderate Assistance 7=Complete IndependenceIRFPAI Quality Coding Scale 6 Independent with activity with or without an assistive device 5 Patient requires set up or clean up by helper. Patient completes activity by themselves 4 Supervision or touching assist (CGA). [place] provide cues , steadying assist 3 The helper provides less than half the effort to complete the activity 2 The helper provides more than half the effort to complete the activity 1 Dependent. The helper does all the effort to complete an activity 7 Patient refused to complete or attempt activity 9 The patient did not perform the activity before the current illness or injury 88 Not attempted due to Medical conditions or safety concerns Transfers (B, C, W/C) (FIM): 6 Sit to/from Stand: 6 Gait Training Gait (FIM): 6 Distance: 2000'x2 Gait Assistive Device: FWW Neuromuscular balance training in parallel bars, standing with feet together, single leg stance Assessment Current Status: Fair Progress improving balance and endurance PT Short Term Goals Short Term Goals Time Frame: Aug 13, 2016 Transfers (B,C,W/C) (FIM): 6 Gait (FIM): 5 Distance (FIM): 3=150 ft Gait Distance Comment: 300 Gait Level of Assist: 5 Gait Assistive Device: FWW Stairs (FIM): 4 # of Steps: 12 Stairs Level of Assist: 4 PT Shelter Goals Shelter Goals PT Document Preparer Microfilming Goals Time Frame: Aug 20, 2016 Transfers (B,C,W/C) (FIM): 6 Sit to Lying (QC): 6 Lying-Sitting on Side/Bed(QC): 6 Sit to Stand (QC): 6 Rollin Roll Left to Right (QC): 6 Chair/Rws-yv-Vkrbf Xfer(QC): 6 Car Transfer (QC): 6 Does the Patient Walk: Yes Gait distance (FIM): 3=150 ft Distance: 500 Walk 10 feet (QC): 6 Walk 10ft-Uneven Surface(QC): 6 Walk 50ft with 2 Turns (QC): 6 Walk 150 ft (QC): 6 Gait Level of Assist: 6 Gait Assistive Device: FWW, Cane Single Point Stairs (FIM): 6 # of Steps: 12 1 Step (curb) (QC): 6 4 Steps (QC): 6 12 Steps (QC): 6 Stairs Level Of Assist: 6 Picking up an Object (QC): 6 PT Plan Problem List Problem List: Activity Tolerance, Functional Strength, Safety, Balance, Gait, Transfer Treatment/Plan Treatment Plan: Continue Plan of Care Treatment Plan: Education, Functional Activity Elyse, Group Therapy, Gait, Safety, Therapeutic Exercise Treatment Duration: Aug 20, 2016 Visits Per Week: 11 Minutes/Day (M-F): 90 Minutes/Day (Sat/Collier): 15 Safety Risks/Education Patient Education: Gait Training, Transfer Techniques, Safety Issues Teaching Recipient: Patient Teaching Methods: Demonstration, Discussion Response to Teaching: Reinforcement Needed Time/GCodes Time In: 1330 Time Out: 1400 Total Billed Treatment Time: 30 Total Billed Treatment 1 visit GT 20' NM 10' DANTE ERVIN PT Aug 10, 2016 14:04
--- NOTE | 2016-08-10 15:45 | Occupational Ther Daily Note ---
OT Current Status-Daily Note Subjective Pt alert, sitting in recliner. Pt agreed to therapy. No c/o pain. Mental Status/Objective Patient Orientation: Person, Place, Time, Situation Functional [place] Measure 0=Not Assessed/NA 4=Minimal Assistance 1=Total Assistance 5=Supervision or Setup 2=Maximal Assistance 6=Modified [place] 3=Moderate Assistance 7=Complete [place] ADL-Treatment Functional [place] Measure 0=Not Assessed/NA 4=Minimal Assistance 1=Total Assistance 5=Supervision or Setup 2=Maximal Assistance 6=Modified [place] 3=Moderate Assistance 7=Complete IndependenceIRFPAI Quality Coding Scale 6 Independent with activity with or without an assistive device 5 Patient requires set up or clean up by helper. Patient completes activity by themselves 4 Supervision or touching assist (CGA). [place] provide cues , steadying assist 3 The helper provides less than half the effort to complete the activity 2 The helper provides more than half the effort to complete the activity 1 Dependent. The helper does all the effort to complete an activity 7 Patient refused to complete or attempt activity 9 The patient did not perform the activity before the current illness or injury 88 Not attempted due to Medical conditions or safety concerns Other Treatment Pt demonstrated ability to use FWW in and around obstacles with no LOB, CGA for safety. Pt was able to reach, grasp and retrieve while standing with SBA using FWW, no LOB noted. Pt demonstrates good understanding of safety with FWW and is mindful of obstacles in path. After therapy, pt sitting in recliner with call light/phone in reach. All needs met in room. OT Short Term Goals Short Term Goals Time Frame: Aug 14, 2016 Bathing(FIM): 5 Lower Body Dressing(FIM): 5 Transfers (B,C,W/C) (FIM): 6 Toilet/Commode Transfer(FIM): 5 Additional Short Term Goals: 1-Demonstrate ADL Tasks, 2-Verbalize Understanding , 3-ImproveStrength/[place]se 1=Demonstrate adherence to instructed precautions during ADL tasks. 2=Patient will verbalize/demonstrate understanding of assistive devices/ modifications for ADL. 3=Patient will improve strength/tolerance for activity to enable patient to perform ADL's. OT Staff Counselor Goals Halfway Goals Time Frame: Aug 28, 2016 Eating (FIM): 6 Eating (QC): 6 Groomin Oral Hygiene (QC): 6 Bathing(FIM): 6 Shower/Bathe Self (QC): 6 Upper Body Dressing(FIM): 6 Upper Body Dressing (QC): 6 Lower Body Dressing(FIM): 6 Lower Body Dressing (QC): 6 On/Off Footwear (QC): 6 Toileting(FIM): 6 Toileting Hygiene (QC): 6 Toilet/Commode Transfer(FIM): 6 Toilet/Commode Transfer (QC): 6 Shower Transfer(FIM): 6 Additional Goals: 1-Demonstrate ADL Tasks, 2-Verbalize Understanding, 3- ImproveStrength/Elyse 1=Demonstrate adherence to instructed precautions during ADL tasks. 2=Patient will verbalize/demonstrate understanding of assistive devices/ modifications for ADL. 3=Patient will improve strength/tolerance for activity to enable patient to perform ADL's. OT Education/Plan Problem List/Assessment Pt to benefit from skilled OT intervention for ADL training, transfers, strengthening, and safety education to maximize level of function and allow safe discharge. Discharge Recommendations Plan/Recommendations: Continue POC Treatment Plan/Plan of Care Patient would benefit from OT for education, treatment and training to promote independence in ADL's, mobility, safety and/or upper extremity function for ADL' s. Plan of Care: ADL Retraining, Functional Mobility, Group Exercise/Act as Ind, UE Funct Exercise/Act, UE Neuromus Re-Ed/Coord Treatment Duration: Aug 28, 2016 Visits Per Week: 10-12 Minutes/Day (M-F): 60-90 Minutes/Day (Sat/[place]): PRN Agreement: Yes Rehab Potential: Good Time/GCodes Start Time: 13:00 Stop Time: 13:30 Total Time Billed (hr/min): 30 Billed Treatment Time 1 visit-FA 2 (30 min) MACK BIRMINGHAM Aug 10, 2016 15:44
[2016-08-10] MEDS: RIVAROXABAN 20 MG TABLET (XARELTO) PO SCH (17:30)
[2016-08-10 19:00] VITALS: BP 105/70
[2016-08-10] MEDS: ATORVASTATIN 40 MG (LIPITOR) TABLET PO SCH (20:16)
[2016-08-11 05:35] VITALS: BP 111/73
[2016-08-11] MEDS: CATHETER FLUSH 10 ML SYR IV SCH ×3 (06:34→20:29)
[2016-08-11] MEDS: PANTOPRAZOLE 40 MG (PROTONIX) TAB PO SCH ×2 (06:34→20:29)
[2016-08-11 07:15] LABS: ANION GAP 9 MMOL/L (5-14); BLOOD UREA NITROGEN 24 MG/DL (7-18); BUN/CREATININE RATIO 22; CALCIUM 9.5 MG/DL (8.5-10.1); CARBON DIOXIDE 23 MMOL/L (21-32); CHLORIDE 107 MMOL/L (98-107); CREATININE SERUM 1.11 MG/DL (0.60-1.30); GFR ESTIMATED > 60; GLUCOSE 99 MG/DL (70-105); MAGNESIUM 1.9 MG/DL (1.8-2.4); POTASSIUM 3.5 MMOL/L (3.6-5.0); SODIUM 139 MMOL/L (135-145)
--- NOTE | 2016-08-11 07:18 | Occupational Ther Daily Note ---
OT Current Status-Daily Note Subjective Pt alert, sitting in recliner. Pt already had retrieved clothing and was ready for shower. Pt agreed to therapy. Stated he didn't sleep as well last night because he didn't take sleeping meds, didn't want to wake up with jet lag today like he did yesterday. Mental Status/Objective Patient Orientation: Person Functional [place] Measure 0=Not Assessed/NA 4=Minimal Assistance 1=Total Assistance 5=Supervision or Setup 2=Maximal Assistance 6=Modified [place] 3=Moderate Assistance 7=Complete [place] ADL-Treatment Functional [place] Measure 0=Not Assessed/NA 4=Minimal Assistance 1=Total Assistance 5=Supervision or Setup 2=Maximal Assistance 6=Modified [place] 3=Moderate Assistance 7=Complete IndependenceIRFPAI Quality Coding Scale 6 Independent with activity with or without an assistive device 5 Patient requires set up or clean up by helper. Patient completes activity by themselves 4 Supervision or touching assist (CGA). [place] provide cues , steadying assist 3 The helper provides less than half the effort to complete the activity 2 The helper provides more than half the effort to complete the activity 1 Dependent. The helper does all the effort to complete an activity 7 Patient refused to complete or attempt activity 9 The patient did not perform the activity before the current illness or injury 88 Not attempted due to Medical conditions or safety concerns Eating (FIM): 6 (Dentures. Pt able to open containers/packages by self and use utensils to cut and feed self.) Eating (QC): 6 ([place]. Pt able to open containers/packages by self and use utensils to cut and feed self.) Grooming (FIM): 6 (Using FWW when standing at sink pt is able to complete by self.) Oral Hygiene (QC): 6 (Using FWW when standing at sink pt is able to complete by self.) Bathing (FIM): 6 (Using grabbar, shower bench and hand held shower pt is able to complete by self.) Bathing Location: L Arm, R Arm, L Upper Leg, R Upper Leg, L Lower Leg ( including foot), R Lower Leg (including foot), Chest, Abdomen, Buttocks, Perineal Area Shower/Bathe Self (QC): 6 (Using grabbar, shower bench and hand held shower pt is able to complete by self.) Upper Body (FIM): 6 (Using FWW, pt able to retrieve clothing and don/doff upper body clothing by self.) Upper Body Dressing (QC): 6 (Using FWW, pt able to retrieve clothing and don/ doff upper body clothing by self.) Lower Body Dressing (FIM): 6 (Using FWW, pt able to retrieve clothing and don/ doff lower body clothing by self.) Lower Body Dressing (QC): 6 (Using FWW, pt able to retrieve clothing and don/ doff lower body clothing by self.) On/Off Footwear (QC): 6 (Using FWW, pt able to retrieve footwear and don/doff by self.) Toileting (FIM): 6 (Using grabbars and FWW, pt is able to complete by self.) Toileting Hygiene (QC): 6 (Using grabbars and FWW, pt is able to complete by self.) Transfers (B, C, W/C) (FIM): 6 (Using FWW, pt is able to complete by self.) Toilet/Commode Transfer (FIM): 6 (Using grabbars and FWW, pt is able to complete by self.) Toilet Transfer (QC): 6 (Using grabbars and FWW, pt is able to complete by self.) Shower Transfer(FIM): 6 (Using grabbars, shower bench and FWW, pt is able to complete by self.) After therapy, pt sitting in recliner with call light/phone in reach. All needs met in room. Other Treatment Pt ambulated to therapy gym with FWW. Completed arm bike 15 min at 25 ledesma resistance to increase strength and activity tolerance for daily functional tasks, no breaks. Pt then was asked to remember theraband exercises that was given to pt yesterday as an UE strengthening program. Pt was able to remember 3 out of the 4 exercises and completed. OT Short Term Goals Short Term Goals Time Frame: Aug 14, 2016 Bathing(FIM): 5 Lower Body Dressing(FIM): 5 Transfers (B,C,W/C) (FIM): 6 Toilet/Commode Transfer(FIM): 5 Additional Short Term Goals: 1-Demonstrate ADL Tasks, 2-Verbalize Understanding , 3-ImproveStrength/E[place]se 1=Demonstrate adherence to instructed precautions during ADL tasks. 2=Patient will verbalize/demonstrate understanding of assistive devices/ modifications for ADL. 3=Patient will improve strength/tolerance for activity to enable patient to perform ADL's. OT Mcc Goals Mcc Goals Time Frame: Aug 28, 2016 Eating (FIM): 6 Eating (QC): 6 Groomin Oral Hygiene (QC): 6 Bathing(FIM): 6 Shower/Bathe Self (QC): 6 Upper Body Dressing(FIM): 6 Upper Body Dressing (QC): 6 Lower Body Dressing(FIM): 6 Lower Body Dressing (QC): 6 On/Off Footwear (QC): 6 Toileting(FIM): 6 Toileting Hygiene (QC): 6 Toilet/Commode Transfer(FIM): 6 Toilet/Commode Transfer (QC): 6 Shower Transfer(FIM): 6 Additional Goals: 1-Demonstrate ADL Tasks, 2-Verbalize Understanding, 3- ImproveStrength/E[place]se 1=Demonstrate adherence to instructed precautions during ADL tasks. 2=Patient will verbalize/demonstrate understanding of assistive devices/ modifications for ADL. 3=Patient will improve strength/tolerance for activity to enable patient to perform ADL's. OT Education/Plan Problem List/Assessment Pt to benefit from skilled OT intervention for ADL training, transfers, strengthening, and safety education to maximize level of function and allow safe discharge. Discharge Recommendations Plan/Recommendations: Continue POC Treatment Plan/Plan of Care Patient would benefit from OT for education, treatment and training to promote independence in ADL's, mobility, safety and/or upper extremity function for ADL' s. Plan of Care: ADL Retraining, Functional Mobility, Group Exercise/Act as Ind, UE Funct Exercise/Act, UE Neuromus Re-Ed/Coord Treatment Duration: Aug 28, 2016 Visits Per Week: 10-12 Minutes/Day (M-F): 60-90 Minutes/Day (Sat/[place]): PRN Agreement: Yes Rehab Potential: Good Time/GCodes Start Time: 07:00 Stop Time: 08:00 Total Time Billed (hr/min): 60 Billed Treatment Time 1 visit-ADL 2 (30 min) EX 2 (30 min) MACK BIRMINGHAM Aug 11, 2016 07:18
[2016-08-11] MEDS: meTOprolol TARTRATE 25 MG (LOPRESSOR) TABLET PO SCH ×2 (08:14→20:28)
[2016-08-11] MEDS: DIGOXIN 0.25 MG (LANOXIN) TAB PO SCH (08:14)
[2016-08-11] MEDS: acetaZOLAMIDE 250 MG (DIAMOX) TAB PO SCH ×2 (08:14→20:27)
[2016-08-11] MEDS: ASPIRIN 81 MG CHEW (CHILDREN'S ASA) PO SCH (08:14)
[2016-08-11] MEDS: FLECAINIDE 100 MG (TAMBOCOR) TAB PO SCH ×3 (08:15→20:28)
--- NOTE | 2016-08-11 08:25 | PM & R (SOAP) Progress Note ---
Subjective Time Seen by Provider: 07:25 Subjective/Events-last exam Patient was seen in his room this AM Patient Modified Independent for traansfers Dizziness improved with change to another antiarrythmic Appreciate Cardiology notes and orders Objective Exam Last Set of Vital Signs Vital Signs Date Time Temp Pulse Resp B/P (MAP) Pulse Ox O2 Delivery O2 Flow Rate FiO2 08/11/16 05:35 98.4 65 18 111/73 97 08/10/16 20:25 Room Air Capillary Refill : I&O Intake and Output 08/11/16 00:00 Intake Total 1400 ml Balance 1400 ml Intake Oral 1400 ml # Voids 6 General: Alert, Oriented X3, Cooperative HEENT: Atraumatic, PERRLA Neck: Supple, No JVD, No Thyromegaly Lungs: Clear to Auscultation, Normal Air Movement Heart: Regular Rate, Normal S1, Normal S2, No Murmurs Abdomen: Normal Bowel Sounds, Soft Extremities: No Clubbing, No Cyanosis Skin: No Rashes Neuro: Normal Gait Results Lab Laboratory Tests 08/11/16 06:30: Sodium Level 139, Potassium Level 3.5L, Chloride Level 107, Carbon Dioxide Level 23, Anion Gap 9, Blood Urea Nitrogen 24H, Creatinine 1.11, Estimat Glomerular Filtration Rate > 60, BUN/Creatinine Ratio 22, Glucose Level 99, Calcium Level 9.5, Magnesium Level 1.9 Assessment/Plan Assessment Cerebellar ataxia A FIb controlled with meds Insomnia-patient declined sleeper last night and didnt sleep as well concerned about jet lag from med Plan Continue PT/OT Follow-up with DR [place] as per their schedule.. Team Conference later today-See report for full functional update and POC and MATI GÓMEZ MD Aug 11, 2016 08:25
--- NOTE | 2016-08-11 08:30 | Cardiology Progress Note ---
Subjective Date Seen by Provider: Aug 11, 2016 Time Seen by Provider: 08:28 Subjective/Events-last exam Patient sitting up in chair. Complains of being "a little fuzzy headed" since starting Flecainide, but denies any dizziness or lightheadedness Review of Systems General: No Night Sweats, No Fatigue, No Malaise HEENT: No Visual Changes, No Dysphasia, No Sore Throat Pulmonary: No Dyspnea, No Cough, No Pleuritic Chest Pain Cardiovascular: No: Chest Pain, Edema, Lt Headedness, Palpitations, Paroxysmal Noc. Dyspnea Gastrointestinal: No: Constipation, Vomiting Genitourinary: No Dysuria, No Frequency, No Incontinence, No Hematuria Musculoskeletal: No: back pain, neck pain Neurological: No: Change in speech, Confusion, Numbness, Weakness Objective-Cardiology Exam Last Set of Vital Signs Vital Signs 08/10/16 08/11/16 20:25 05:35 Temp 98.4 Pulse 65 Resp 18 B/P (MAP) 111/73 Pulse Ox 97 O2 Delivery Room Air Capillary Refill : I&O Intake and Output 08/11/16 00:00 Intake Total 1400 ml Balance 1400 ml Intake Oral 1400 ml # Voids 6 General: Alert, Oriented X3, Cooperative HEENT: Atraumatic, PERRLA Neck: Supple, No JVD, No Thyromegaly Lungs: Clear to Auscultation, Normal Air Movement Heart: Regular Rate, Normal S1, Normal S2, No Murmurs Abdomen: Normal Bowel Sounds, Soft Extremities: No Clubbing, No Cyanosis Skin: No Rashes Neuro: Normal Gait Results Lab Laboratory Tests 08/11/16 06:30 A/P-Cardiology Admission Diagnosis Paroxysmal atrial fibrillation DVT/PE Vertigo Ataxia Hypertension Assessment/Plan Paroxysmal atrial fibrillation, underwent electrical cardioversion in [place] and he was unable to maintain sinus rhythm, started on Rythmol and Xarelto, Rythmol was discontinued and dizziness significantly improved. Started on Flecainide yesterday. Continue to monitor tolerance Deep venous thrombosis/pulmonary embolism, unprovoked, started on Xarelto. Ataxia, dizziness, dysarthria, worsening symptoms, extensive workup was done at , evaluated by ENT, neurologist, unable to pinpoint the cause of his dizziness. Patient has history of chronic dizziness and strong family history of dizziness but he was able to function previously, since his last hospitalization earlier this month he has been unable to function due to severe vertigo and ataxia with dizziness. Dizziness improved significantly since discontinuing Rythmol. Hypertension, controlled, continue to monitor blood pressure Clinical Quality Measures DVT/VTE Risk/Contraindication: Risk Factor Score Per Nursin RFS Level Per Nursing on Admit: 4+=Very High AWILDA ARREAGA Aug 11, 2016 08:30
--- NOTE | 2016-08-11 08:38 | Progress Note (SOAP) ---
Subjective Time Seen by Provider: 08:40 Subjective/Events-last exam possible stroke. Patient feeling better and stronger. Atrial fibrillation. Patient getting around with a walker Objective Exam Vital Signs Date Time Temp Pulse Resp B/P (MAP) Pulse Ox O2 Delivery O2 Flow Rate FiO2 08/11/16 05:35 98.4 65 18 111/73 97 08/11/16 01:00 61 08/10/16 20:25 Room Air 08/10/16 19:00 98.9 71 16 105/70 96 08/10/16 19:00 72 08/10/16 13:00 69 08/10/16 09:00 94 Room Air I & O 08/11/16 07:00 Intake Total 1300 ml Balance 1300 ml Capillary Refill : General Appearance: No Apparent Distress, WD/WN HEENT: Normal ENT Inspection Neck: Full Range of Motion, Normal Inspection Respiratory: Chest Non Tender, Lungs Clear, Normal Breath Sounds, No Accessory Muscle Use, No Respiratory Distress Cardiovascular: No Murmur Results Lab Laboratory Tests 08/11/16 06:30 Laboratory Tests 08/11/16 06:30: Sodium Level 139, Potassium Level 3.5L, Chloride Level 107, Carbon Dioxide Level 23, Anion Gap 9, Blood Urea Nitrogen 24H, Creatinine 1.11, Estimat Glomerular Filtration Rate > 60, BUN/Creatinine Ratio 22, Glucose Level 99, Calcium Level 9.5, Magnesium Level 1.9 Assessment/Plan Assessment/Plan Assess & Plan/Chief Complaint proximal atrial fibrillation. PE and DVT. Dizziness. DVT. Hypertension. Vertigo versus dizziness. Possible stroke. Patient work in progress. Patient using a walker. . 08/10/16. history of atrial fibrillation. PE and DVT. Dizziness. Possible stroke. Patient feeling much better area Patient had good night sleep. . 08/11/16. History of atrial fibrillation. DVT and PE. Patient feels he is improving Clinical Quality Measures DVT/VTE Risk/Contraindication: Risk Factor Score Per Nursin RFS Level Per Nursing on Admit: 4+=Very High MALISSA NELSON DO Aug 11, 2016 08:38
--- NOTE | 2016-08-11 12:09 | Physical Therapy Daily Note ---
PT Daily Note-Current Subjective Pt is sitting in recliner upon arrival. Pt agrees to PT. Pt reports wanting to go home as soon as possible and feels he is ready. Mental Status Patient Orientation: Person, Place, Time, Situation Transfers Functional [place] Measure 0=Not Assessed/NA 4=Minimal Assistance 1=Total Assistance 5=Supervision or Setup 2=Maximal Assistance 6=Modified [place] 3=Moderate Assistance 7=Complete IndependenceIRFPAI Quality Coding Scale 6 Independent with activity with or without an assistive device 5 Patient requires set up or clean up by helper. Patient completes activity by themselves 4 Supervision or touching assist (CGA). [place] provide cues , steadying assist 3 The helper provides less than half the effort to complete the activity 2 The helper provides more than half the effort to complete the activity 1 Dependent. The helper does all the effort to complete an activity 7 Patient refused to complete or attempt activity 9 The patient did not perform the activity before the current illness or injury 88 Not attempted due to Medical conditions or safety concerns Transfers (B, C, W/C) (FIM): 6 Scootin Rollin Roll Left to Right (QC): 6 Supine to/from Sit: 6 Sit to/from Stand: 6 Sit to Lying (QC): 6 Sit to Stand (QC): 6 Chair/Zli-fp-Ynixt Xfer(QC): 6 Bed to/from Chair: 6 Pt was unable to perform the car transfer since a car was unavailable although will monitor transfer upon discharge. Weight Bearing Weight Bearing Restriction: Full Weight Bearing Location Restriction: LE Bilateral Gait Training Does the Patient Walk?: Yes Gait (FIM): 6 Distance (FIM): 3=150 ft Distance: 300' Walk 10 feet (QC): 6 Walk 50 ft with 2 Turns(QC): 6 Walk 150 ft (QC): 6 Walking 10ft/uneven surface-QC: 6 Gait Level of Assist: 6 Gait Persons Needed: 1 Gait Assistive Device: FWW Pt had steady, normalized gait pattern with no LOB. Wheelchair Training Does the Pt Use a Wheelchair?: No Stair Training Stair Training: Handrails/: 1 handrail Stairs (FIM): 6 #of Steps: 12 1 Step (curb) (QC): 6 4 Steps (QC): 6 12 Steps (QC): 6 Stairs: Pattern: Step to Level of Assist: 6 Balance Picking up an Object (QC): 6 Exercises Seated Therapy Exercises: Ankle pumps, Long arc quads, Hip flexion, Kicking activity Seated Reps: 15 NuStep Minutes: 15 NuStep Workload: 6 Treatments Pt transfers from recliner to standing using FWW at Mod I. Pt ambulates using FWW at Mod I. Pt completes 3 sets of 4 stairs, walks over varying surface for at least 10' & picks up object from floor all to test balance. Pt also completed Seated Ex and used NuStep for 15m at Workload 6 for increasing strength. Pt returns to room to rest in recliner at end of tx with all needs met. Assessment Current Status: Good Progress Pt has improved with strengthening, activity tolerance and balance with upright activities. Pt wants to discharge home as soon as possible. PT Short Term Goals Short Term Goals Time Frame: Aug 13, 2016 Transfers (B,C,W/C) (FIM): 6 Gait (FIM): 5 Distance (FIM): 3=150 ft Gait Distance Comment: 300 Gait Level of Assist: 5 Gait Assistive Device: FWW Stairs (FIM): 4 # of Steps: 12 Stairs Level of Assist: 4 PT Fdc Goals Mortuary Operations Manager Goals PT Fdc Goals Time Frame: Aug 20, 2016 Transfers (B,C,W/C) (FIM): 6 Sit to Lying (QC): 6 Lying-Sitting on Side/Bed(QC): 6 Sit to Stand (QC): 6 Rollin Roll Left to Right (QC): 6 Chair/Ybc-oc-Xcrqv Xfer(QC): 6 Car Transfer (QC): 6 Does the Patient Walk: Yes Gait distance (FIM): 3=150 ft Distance: 500 Walk 10 feet (QC): 6 Walk 10ft-Uneven Surface(QC): 6 Walk 50ft with 2 Turns (QC): 6 Walk 150 ft (QC): 6 Gait Level of Assist: 6 Gait Assistive Device: FWW, Cane Single Point Stairs (FIM): 6 # of Steps: 12 1 Step (curb) (QC): 6 4 Steps (QC): 6 12 Steps (QC): 6 Stairs Level Of Assist: 6 Picking up an Object (QC): 6 PT Plan Problem List Problem List: Activity Tolerance, Functional Strength Treatment/Plan Treatment Plan: Continue Plan of Care Treatment Plan: Education, Functional Activity [place]se, Group Therapy, Gait, Safety, Therapeutic Exercise Treatment Duration: Aug 20, 2016 Visits Per Week: 11 Minutes/Day (M-F): 90 Minutes/Day (Sat/[place]): 15 Safety Risks/Education Patient Education: Gait Training, Transfer Techniques, Steps, Correct Positioning, Safety Issues Teaching Recipient: Patient Teaching Methods: Discussion Response to Teaching: Verbalize Understanding Time/GCodes Time In: 900 Time Out: 1000 Total Billed Treatment Time: 60 Total Billed Treatment visit, GT x2 (30m) & EX x2 (30m) CHIOMA HERRERA [employer] Aug 11, 2016 12:09
--- NOTE | 2016-08-11 15:01 | Therapy Group Daily Note ---
Therapy Daily Group Note Patient Education Topic Other List Below (Memory) Exercises LE Seated Exercise, UE Exercise Other/Notes Pt ambulated using FWW to OT/PT group. Group consisted of introductions (name, place living, favorite summer activity), socialization, education on memory strategies, memory tasks (remembering each group members summer activity and three words-tub seat, gait belt, walker) and memory activity. Pt appropriately was able to introduce self and answer questions. Pt contributed to discussions. Actively involved in tasks and activities. Pt verbalized understanding of memory strategies and was able to give own example of a strategy. After therapy, pt ambulated back to room with FWW and sat in recliner. Call light/phone in reach. All needs met in room. Start Time: 13:00 Stop Time: 14:15 Total Billed Treatment Time: 75 Total Billed Treatment 1-GRP MACK BIRMINGHAM Aug 11, 2016 15:01
[2016-08-11] MEDS ORDERED: RIVA20TA PO (16:11)
[2016-08-11] MEDS ORDERED: FLEC100T PO (16:11)
--- NOTE | 2016-08-11 16:42 | Cardiology Progress Note ---
Subjective Date Seen by Provider: Aug 11, 2016 Time Seen by Provider: 16:42 Subjective/Events-last exam Patient is sitting in a chair, complaining of mild lightheadedness, no ataxia Review of Systems General: No Chills, No Night Sweats, Fatigue, Malaise, No Appetite, No Other HEENT: No Head Aches, No Visual Changes, No Eye Pain, No Ear Pain, No Dysphasia , No Sinus Congestion, No Post Nasal Drip, No Sore Throat, No Other Pulmonary: No Dyspnea, No Cough, No Pleuritic Chest Pain, No Other Cardiovascular: No: Chest Pain, Edema, Lt Headedness, Orthopnea, Other, Palpitations, Paroxysmal Noc. Dyspnea Objective-Cardiology Exam Last Set of Vital Signs Vital Signs 08/11/16 08/11/16 08/11/16 05:35 07:00 09:00 Temp 98.4 Pulse 62 Resp 18 B/P (MAP) 111/73 Pulse Ox 97 O2 Delivery Room Air Capillary Refill : I&O Intake and Output 08/11/16 00:00 Intake Total 1400 ml Balance 1400 ml Intake Oral 1400 ml # Voids 6 General: Alert, Oriented X3, Cooperative HEENT: Atraumatic, PERRLA Neck: Supple, No JVD, No Thyromegaly Lungs: Clear to Auscultation, Normal Air Movement Heart: Regular Rate, Normal S1, Normal S2, No Murmurs Abdomen: Normal Bowel Sounds, Soft Extremities: No Clubbing, No Cyanosis Skin: No Rashes Neuro: Normal Gait Results Lab Laboratory Tests 08/11/16 06:30 A/P-Cardiology Admission Diagnosis Paroxysmal atrial fibrillation DVT/PE Vertigo Ataxia Hypertension Assessment/Plan Paroxysmal atrial fibrillation, underwent electrical cardioversion in [place] and he was unable to maintain sinus rhythm, started on Rythmol and Xarelto, Rythmol was discontinued and dizziness significantly improved. Started on Flecainide yesterday, currently in sinus rhythm, no arrhythmia was detected, slightly lightheaded but reporting significant improvement. Deep venous thrombosis/pulmonary embolism, unprovoked, started on Xarelto. Ataxia, dizziness, dysarthria, worsening symptoms, extensive workup was done at , evaluated by ENT, neurologist, unable to pinpoint the cause of his dizziness. Patient has history of chronic dizziness and strong family history of dizziness but he was able to function previously, since his last hospitalization earlier this month he has been unable to function due to severe vertigo and ataxia with dizziness. Dizziness improved significantly since discontinuing Rythmol. Hypertension, controlled, continue to monitor blood pressure Clinical Quality Measures DVT/VTE Risk/Contraindication: Risk Factor Score Per Nursin RFS Level Per Nursing on Admit: 4+=Very High LUCILA KINCAID MD Aug 11, 2016 16:42
[2016-08-11] MEDS: RIVAROXABAN 20 MG TABLET (XARELTO) PO SCH (17:19)
[2016-08-11 18:03] VITALS: BP 109/72
[2016-08-11] MEDS: ATORVASTATIN 40 MG (LIPITOR) TABLET PO SCH (20:29)
[2016-08-12] MEDS: CATHETER FLUSH 10 ML SYR IV SCH (06:05)
[2016-08-12] MEDS: PANTOPRAZOLE 40 MG (PROTONIX) TAB PO SCH (06:05)
[2016-08-12 06:19] VITALS: BP 90/60
--- NOTE | 2016-08-12 08:23 | Cardiology Progress Note ---
Subjective Date Seen by Provider: Aug 12, 2016 Time Seen by Provider: 08:21 Subjective/Events-last exam Patient sitting up in chair, being discharged home today. Denies any CP or dyspnea. Denies dizziness Review of Systems General: No Night Sweats, No Fatigue, No Malaise HEENT: No Visual Changes, No Dysphasia, No Sore Throat Pulmonary: No Dyspnea, No Cough Cardiovascular: No: Chest Pain, Palpitations Gastrointestinal: No: Abdominal Pain, Nausea, Vomiting Genitourinary: No Dysuria, No Frequency Musculoskeletal: No: back pain, neck pain Neurological: No: Change in speech, Confusion, Numbness, Weakness Objective-Cardiology Exam Last Set of Vital Signs Vital Signs 08/12/16 06:19 Temp 98.0 Pulse 61 Resp 18 B/P (MAP) 90/60 Pulse Ox 98 O2 Delivery Room Air Capillary Refill : I&O Intake and Output 08/12/16 00:00 Intake Total 1110 ml Balance 1110 ml Intake Oral 1110 ml # Voids 7 # Bowel Movements 1 General: Alert, Oriented X3, Cooperative HEENT: Atraumatic, PERRLA Neck: Supple, No JVD, No Thyromegaly Lungs: Clear to Auscultation, Normal Air Movement Heart: Regular Rate, Normal S1, Normal S2, No Murmurs Abdomen: Normal Bowel Sounds, Soft Extremities: No Clubbing, No Cyanosis Skin: No Rashes Neuro: Normal Gait A/P-Cardiology Admission Diagnosis Paroxysmal atrial fibrillation DVT/PE Vertigo Ataxia Hypertension Assessment/Plan Paroxysmal atrial fibrillation, underwent electrical cardioversion in [place] and he was unable to maintain sinus rhythm, started on Rythmol and Xarelto, Rythmol was discontinued and dizziness significantly improved. Started on Flecainide, currently in sinus rhythm, no arrhythmia was detected, slightly lightheaded but reporting significant improvement. We will continue with current medication and see him for follow up in our office in 1-2 weeks. Deep venous thrombosis/pulmonary embolism, unprovoked, started on Xarelto. Ataxia, dizziness, dysarthria, worsening symptoms, extensive workup was done at , evaluated by ENT, neurologist, unable to pinpoint the cause of his dizziness. Patient has history of chronic dizziness and strong family history of dizziness but he was able to function previously, since his last hospitalization earlier this month he has been unable to function due to severe vertigo and ataxia with dizziness. Dizziness improved significantly since discontinuing Rythmol. Hypertension, controlled, currently borderline hypotensive, continue to monitor blood pressure Clinical Quality Measures DVT/VTE Risk/Contraindication: Risk Factor Score Per Nursin RFS Level Per Nursing on Admit: 4+=Very High AWILDA ARREAGA Aug 12, 2016 08:23
[2016-08-12 08:30] VITALS: BP 108/71
--- NOTE | 2016-08-12 08:30 | PM & R (SOAP) Progress Note ---
Subjective Time Seen by Provider: 07:40 Subjective/Events-last exam Patient was seen in his room this AM Appreciate Cardiology note.Patient has progressed well Objective Exam Last Set of Vital Signs Vital Signs Date Time Temp Pulse Resp B/P (MAP) Pulse Ox O2 Delivery O2 Flow Rate FiO2 08/12/16 06:19 98.0 61 18 90/60 98 Room Air Capillary Refill : I&O Intake and Output 08/12/16 00:00 Intake Total 1110 ml Balance 1110 ml Intake Oral 1110 ml # Voids 7 # Bowel Movements 1 General: Alert, Oriented X3, Cooperative HEENT: Atraumatic, PERRLA Neck: Supple, No JVD, No Thyromegaly Lungs: Clear to Auscultation, Normal Air Movement Heart: Regular Rate, Normal S1, Normal S2, No Murmurs Abdomen: Normal Bowel Sounds, Soft Extremities: No Clubbing, No Cyanosis Skin: No Rashes Neuro: Normal Gait Results Lab Laboratory Tests 08/11/16 06:30: Sodium Level 139, Potassium Level 3.5L, Chloride Level 107, Carbon Dioxide Level 23, Anion Gap 9, Blood Urea Nitrogen 24H, Creatinine 1.11, Estimat Glomerular Filtration Rate > 60, BUN/Creatinine Ratio 22, Glucose Level 99, Calcium Level 9.5, Magnesium Level 1.9 Assessment/Plan Assessment Cerebellar ataxia A FIb controlled with meds Insomnia-patient slept better last night Plan Discharge today to home with family and HHC F/U with PCP and DR Sanchez See orders. MATI OSUNA MD Aug 12, 2016 08:30
--- NOTE | 2016-08-12 08:33 | Progress Note (SOAP) ---
Subjective Time Seen by Provider: 08:30 Subjective/Events-last exam patient feeling better. Patient to be discharged today. Patient better person today than when he came in. Vertigo. Possible stroke. DVT and PE. Paroxymal atrial fibrillation Objective Exam Vital Signs Date Time Temp Pulse Resp B/P (MAP) Pulse Ox O2 Delivery O2 Flow Rate FiO2 08/12/16 06:19 98.0 61 18 90/60 98 Room Air 08/12/16 01:00 60 08/11/16 21:03 Room Air 08/11/16 20:26 64 08/11/16 18:03 97.7 61 20 109/72 99 Room Air 08/11/16 09:00 Room Air I & O 08/12/16 07:00 Intake Total 1510 ml Balance 1510 ml Capillary Refill : General Appearance: No Apparent Distress, WD/WN HEENT: Normal ENT Inspection Neck: Full Range of Motion, Normal Inspection Respiratory: Chest Non Tender, Lungs Clear, Normal Breath Sounds, No Accessory Muscle Use, No Respiratory Distress Cardiovascular: Regular Rate, Rhythm Assessment/Plan Assessment/Plan Assess & Plan/Chief Complaint proximal atrial fibrillation. PE and DVT. Dizziness. DVT. Hypertension. Vertigo versus dizziness. Possible stroke. Patient work in progress. Patient using a walker. . 08/10/16. history of atrial fibrillation. PE and DVT. Dizziness. Possible stroke. Patient feeling much better area Patient had good night sleep. . 08/11/16. History of atrial fibrillation. DVT and PE. Patient feels he is improving. . 08/12/16. Possible stroke. History of atrial Fibrillation. PE and DVT. Dizziness. Hypertension. Patient feels much better. Patient to go home today Clinical Quality Measures DVT/VTE Risk/Contraindication: Risk Factor Score Per Nursin RFS Level Per Nursing on Admit: 4+=Very High MALISSA NELSON DO Aug 12, 2016 08:32
[2016-08-12] MEDS: DIGOXIN 0.25 MG (LANOXIN) TAB PO SCH (08:38)
[2016-08-12] MEDS: ASPIRIN 81 MG CHEW (CHILDREN'S ASA) PO SCH (08:38)
[2016-08-12] MEDS: meTOprolol TARTRATE 25 MG (LOPRESSOR) TABLET PO SCH (08:39)
[2016-08-12] MEDS: FLECAINIDE 100 MG (TAMBOCOR) TAB PO SCH (08:39)
[2016-08-12] MEDS: acetaZOLAMIDE 250 MG (DIAMOX) TAB PO SCH (09:41)
[2016-08-12 11:10] VITALS: BP 108/71
--- NOTE | 2016-08-12 15:54 | Therapy Team Discharge Summary ---
Therapy Discharge Summary Discharge Recommendations Date of Discharge 08/12/16 Therapy D/C Recommendations: Home w/ Family Support Physical Therapy Patient came to rehab with cerebellar ataxia. Upon evaluation patient performed bed mobility and transfers with min assist, ambulated 150' with a rolling walker with min assist, and went up and down 12 steps with min assist. Patient has been performing bed mobility and transfer training, balance and endurance training, functional strengthening, stair training, gait training, and education. Patient has made good progress and has met all of his intermediate designer goals except for distance on his ambulation goal. Now, patient performs bed mobility and transfers with mod I, ambulates 300' with a rolling walker with mod I (including 50' with at least 2 turns of 90 degrees and10' over an uneven surface), and can go up and down 12 steps using 1 handrail with mod I. Patient has been discharged from this facility and will be discharged from PT at this time. PT Alf Goals Third Grade Teacher Goals PT Third Grade Teacher Goals Time Frame: Aug 20, 2016 Transfers (B,C,W/C) (FIM): 6 Roll Left to Right (QC): 6 Sit to Lying (QC): 6 Lying-Sitting on Side/Bed(QC): 6 Sit to Stand (QC): 6 Chair/Ndl-vg-Uwhds Xfer(QC): 6 Car Transfer (QC): 6 Does the Patient Walk: Yes Gait distance (FIM): 3=150 ft Distance: 500 Walk 10 feet (QC): 6 Walk 10ft-Uneven Surface(QC): 6 Walk 50ft with 2 Turns (QC): 6 Walk 150 ft (QC): 6 Gait Level of Assist: 6 Gait Assistive Device: FWW, Cane Single Point Stairs (FIM): 6 # of Steps: 12 1 Step (curb) (QC): 6 4 Steps (QC): 6 12 Steps (QC): 6 Stairs Level Of Assist: 6 Picking up an Object (QC): 6 OT Alf Goals Alf Goals Time Frame: Aug 28, 2016 Eating (FIM): 6 Eating (QC): 6 Oral Hygiene (QC): 6 Grooming(FIM): 6 Bathing(FIM): 6 Shower/Bathe Self (QC): 6 Upper Body Dressing(FIM): 6 Upper Body Dressing (QC): 6 Lower Body Dressing(FIM): 6 Lower Body Dressing (QC): 6 On/Off Footwear (QC): 6 Toileting(FIM): 6 Toileting Hygiene (QC): 6 Toilet/Commode Transfer(FIM): 6 Toilet/Commode Transfer (QC): 6 Shower Transfer(FIM): 6 Additional Goals: 1-Demonstrate ADL Tasks, 2-Verbalize Understanding, 3- ImproveStrength/Elyse 1=Demonstrate adherence to instructed precautions during ADL tasks. 2=Patient will verbalize/demonstrate understanding of assistive devices/ modifications for ADL. 3=Patient will improve strength/tolerance for activity to enable patient to perform ADL's. DANTE ERVIN PT Aug 12, 2016 15:54
--- NOTE | 2016-08-13 13:04 | Therapy Team Discharge Summary ---
Therapy Discharge Summary Discharge Recommendations Date of Discharge Aug 12, 2016 at 11:10 Therapy D/C Recommendations: Home w/ Family Support Occupational Therapy Pt admitted with cerebellar ataxia. On admission pt required minimal assistance for bathing, LE dressing, and toilet transfer. Skilled OT intervention focused on ADL training, transfers, strengthening, and safety education. Pt made good progress with therapy and by discharge is completing ADLs and transfers with modified independence. Pt met all OT LTG. Pt discharged home with spouse. D/c ARU OT PT Jail Goals Jail Goals PT Multi Skilled Operator Goals Time Frame: Aug 20, 2016 Transfers (B,C,W/C) (FIM): 6 Roll Left to Right (QC): 6 Sit to Lying (QC): 6 Lying-Sitting on Side/Bed(QC): 6 Sit to Stand (QC): 6 Chair/Uyd-pn-Jsxce Xfer(QC): 6 Car Transfer (QC): 6 Does the Patient Walk: Yes Gait distance (FIM): 3=150 ft Distance: 500 Walk 10 feet (QC): 6 Walk 10ft-Uneven Surface(QC): 6 Walk 50ft with 2 Turns (QC): 6 Walk 150 ft (QC): 6 Gait Level of Assist: 6 Gait Assistive Device: FWW, Cane Single Point Stairs (FIM): 6 # of Steps: 12 1 Step (curb) (QC): 6 4 Steps (QC): 6 12 Steps (QC): 6 Stairs Level Of Assist: 6 Picking up an Object (QC): 6 OT Jail Goals Jail Goals Time Frame: Aug 28, 2016 Eating (FIM): 6 Eating (QC): 6 Oral Hygiene (QC): 6 Grooming(FIM): 6 Bathing(FIM): 6 Shower/Bathe Self (QC): 6 Upper Body Dressing(FIM): 6 Upper Body Dressing (QC): 6 Lower Body Dressing(FIM): 6 Lower Body Dressing (QC): 6 On/Off Footwear (QC): 6 Toileting(FIM): 6 Toileting Hygiene (QC): 6 Toilet/Commode Transfer(FIM): 6 Toilet/Commode Transfer (QC): 6 Shower Transfer(FIM): 6 Additional Goals: 1-Demonstrate ADL Tasks, 2-Verbalize Understanding, 3- ImproveStrength/Elyse 1=Demonstrate adherence to instructed precautions during ADL tasks. 2=Patient will verbalize/demonstrate understanding of assistive devices/ modifications for ADL. 3=Patient will improve strength/tolerance for activity to enable patient to perform ADL's. LATASHA MORENO OT Aug 13, 2016 13:04
== END 2016-08-12 11:10 | disposition home or self-care (01) | DRG 60 ==
LOC: ENPENDDIS 08-12 12:00
PROVIDERS: ADMIT Physical Medicine & Rehabilitation; ATTEND Physical Medicine & Rehabilitation
DX: G11.9 Hereditary ataxia, unspecified (principal); R42 Dizziness and giddiness; M62.81 Muscle weakness (generalized); I48.0 Paroxysmal atrial fibrillation; I10 Essential (primary) hypertension; E78.5 Hyperlipidemia, unspecified; G47.00 Insomnia, unspecified; Z79.01 Long term (current) use of anticoagulants
CPT/HCPCS: 36415; 80048; 80053; 82607; 83735; 84443; 85025; 93005

== ENCOUNTER → 2017-01-19 | Outpatient (CLI) | payer OTHER ==
[~2017-01-19] VITALS: Ht 177.8 cm; Wt 95.3 kg
[~2017-01-19] MED LIST: ACET-2267 PO; ACET250T3 PO; ASPI-999 PO; ATOR40TA PO; CATHETER FLUSH 10 ML SYR IV PRN; DIGO250T6 PO; FLEC100T PO; MECL-106 PO; METO-333 PO; ONDA4TAB8 PO; PANT40TA2 PO; PROP150T2 PO; REGADENOSON 0.4 MG/5 ML SYR (LEXISCAN) IV ONE; RIVA15TA PO; RIVA20TA PO
[2017-01-19 13:20] VITALS: BP 126/82
--- NOTE | 2017-01-19 22:31 | STRESS TEST ---
DATE OF SERVICE: 01/19/2017 LEXISCAN MYOVIEW STRESS TEST REPORT Baseline heart rate is 55. Baseline blood pressure 126/82. Baseline EKG is sinus rhythm with no ischemic changes. SUMMARY: The patient was injected with 10.85 mCi of technetium-99 Myoview and the resting images were obtained. Then, the patient received 0.4 mg of Lexiscan followed by 31.1 mCi of technetium-99 Myoview. Throughout the test, there were no EKG changes. The resting and stress images were reviewed and compared in the short axis, horizontal long axis and vertical long axis views. Review of the images showed diaphragmatic attenuation with no significant ischemia or infarction. SSS is 2. SDS 2. TID value 0.89. On the gated images, the left ventricle appeared to be normal size with normal contractility. Calculated ejection fraction 71%. CONCLUSION: 1. The patient tolerated Lexiscan well. 2. Diaphragmatic attenuation with no significant ischemia or infarction on SPECT images. 3. Normal left ventricular size with normal contractility, calculated ejection fraction 71%. Job ID: [id number] DocumentID: [id number] Dictated Date: 01/19/2017 16:12:37 Fixed Income Portfolio Manager Date: 01/19/2017 19:18:39 Dictated By: LUCILA KINCAID MD
== END ==
LOC: CARD 09:41
PROVIDERS: ATTEND Internal Medicine Cardiovascular Disease
DX: I48.91 Unspecified atrial fibrillation (principal); I10 Essential (primary) hypertension; I26.99 Other pulmonary embolism without acute cor pulmonale; R42 Dizziness and giddiness
CPT/HCPCS: 78452; 93017; 93306

== ENCOUNTER → 2018-05-22 | Day surgery (SDC) | payer OTHER ==
[~2018-05-22] VITALS: Ht 180.3 cm; Wt 99.8 kg
[~2018-05-22] MED LIST changes: -CATHETER FLUSH 10 ML SYR IV PRN; +DRON400T2 PO; +LIDOCAINE 2% VISCOUS 15 ML UDC ONE; +LIDOCAINE 2% VISCOUS 15 ML UDC PO ONE; +METO-387 PO; +MIDAZOLAM 2 MG/2 ML (VERSED) VIAL ONE; +NS IV 1000 ML 1,000 ML IV SCH; +NS IV 1000 ML 1,000 ML ONE; +OMEP20CA12 PO; -REGADENOSON 0.4 MG/5 ML SYR (LEXISCAN) IV ONE; -RIVA15TA PO; +RIVA15TA2 PO; -RIVA20TA PO; +RIVA20TA2 PO; +ZOLP10TA5 PO; +proPOfol 200 MG/20 ML (DIPRIVAN) VIAL IV ONE
--- OUTSIDE RECORDS SUMMARY | 2018-05-22 06:38 | XMS REPORT | Encounter Summary ---
Author Author [facility] Organization [facility] Address Unknown Phone Unavailable Care Team Providers Care Professor Of Medicine Name Role Phone Database, Physician Not In PCP Unavailable Reason for Visit * Reason Comments Follow-up Phone Call return call, no answer - waiting for return call Encounter Details Care Team Description Date Type Department Valarie Mcgrath RN Follow-up Phone Call (return call, no answer - waiting for return call) 05/17/2018 Telephone [facility] [address] [place] [address] Social History Date Tobacco Use Types Packs/Day Years Used Quit: 02/14/1991 Former Smoker Smokeless Tobacco: Never Used Alcohol Use Drinks/Week oz/Week Comments Yes 1 Cans of 0.6 very little beer Sex Assigned at Date Recorded Not on file Industry Job Start Date Occupation Not on file Not on file Not on file Travel End Travel History Travel Start No recent travel history available. documented as of this encounter Functional Status Date of Assessment Functional Status Response 08/06/2016 Does the patient have a hearing impairment: No 08/06/2016 Does the patient have a visual impairment: No 08/06/2016 Does the patient have impaired ambulation: No 08/06/2016 Does the patient have an activity of daily living No (ADL) impairment: 08/06/2016 Does the patient have an instrumental activity of Yes daily living (IADL) impairment: Date of Assessment Cognitive Status Response 08/06/2016 Does the patient have a cognitive impairment: No documented as of this encounter Miscellaneous Notes * Telephone Encounter - Katt Mackey RN - 05/18/2018 8:44 AM CDT Alejandra Maddox LPN P Mac Nurse Nichole VM on triage line from Angela Ruby returning our call for Godwin Ruby. She did not leave . Call her back at # [phone]. I called and spoke with patient's regarding the plan for patient based on MPE documentation encounter. She states that she has no further concerns or questions. * Telephone Encounter - Valarie Mcgrath RN - 05/17/2018 6:16 PM CDT attempted to call again in f/u to message below. lm on pref phone number listed above and ask they c/b on the EP nurse triage line * Telephone Encounter - Valarie Mcgrath RN - 05/17/2018 3:40 PM CDT left message on phone number noted below that call was coming from. also attempted to call preferred number listed in chart. if c/b see Dr Mcgrath's message/documentation from yesterday with plan of care * Telephone Encounter - Valarie Mcgrath RN - 05/17/2018 3:39 PM CDT ----- Message from Alejandra Maddox LPN sent at 05/17/2018 2:46 PM CDT ----- Regarding: MPE- test ? VM from on triage line. Said that they have testing question. She did not leave # but was calling from # [phone]. documented in this encounter Plan of Treatment Not on filedocumented as of this encounter Visit Diagnoses Not on filedocumented in this encounter
--- OUTSIDE RECORDS SUMMARY | 2018-05-22 06:38 | XMS REPORT | Clinical Summary ---
Author Author [facility] Organization [facility] Address Unknown Phone Unavailable Care Team Providers Care Area Manager Name Role Phone Database, Physician Not In PCP Unavailable Source Comments Some departments are not documenting in the electronic medical record. If you do not see the information that you expected, contact Release of Information in the Health Information Management department at [phone] for further assistance in locating additional records.[facility] Allergies Comments Active Allergy Reactions Severity Noted Date Acetaminophen RASH Medium 08/03/2016 Medications End Date Status Medication Sig Dispensed Refills Start Date Active atorvastatin (LIPITOR) 40 Take 1 Tab by 0 mg tabletIndications: mouth at 7 hyperlipidemia bedtime daily. Indications: HYPERLIPIDEMI A Active aspirin 81 mg chewable Chew 1 Tab by 0 tablet mouth daily. 7 Take with food. Active acetaZOLAMIDE (DIAMOX) Take 2 Tabs 0 250 mg tablet by mouth 7 twice daily. Active traMADol (ULTRAM) 50 mg Take 50 mg by 0 tablet mouth as Needed for Pain. Active traZODone (DESYREL) 50 mg Take 50 mg by 0 tablet mouth at bedtime daily. Active meclizine (ANTIVERT) 25 Take 25 mg by 0 mg tablet mouth as Needed. Active zolpidem (AMBIEN) 10 mg Take 10 mg by 0 tablet mouth daily. Active rivaroxaban (XARELTO) 20 Take 20 mg by 0 mg tablet mouth daily. Take with food. Active metoprolol tartrate Take 12.5 mg 0 (LOPRESSOR) 25 mg tablet by mouth twice daily. Active Problems Problem Noted Date Dizziness 11/02/2016 Atrial fibrillation 11/02/2016 Overview: August 2016 -[id number] 3 (HTN, thromboembolism) Initiated on rhythmol. Stopped after c/o dizziness. Changed to flecainide and also stopped because of dizziness. Metoprolol tartrate 12.5mg BID. Rashaadrelto Acute pulmonary embolism 11/02/2016 Overview: 07/15/16 - CT chest: Extensive right-sided pulmonary emboli present with possible early infarct within the right lung base. Acute deep vein thrombosis (DVT) of left lower extremity 11/02/2016 Hypertension 11/02/2016 Insomnia 11/02/2016 Episodic ataxia 08/06/2016 Ataxia 08/03/2016 Encounters Care Team Description Date Type Specialty Valarie Mcgrath RN Follow-up Phone Call (return call, no answer - waiting for return call) 05/17/2018 Telephone Cardiology William Mcgrath MD Atrial fibrillation 05/16/2018 Documentation Cardiology from Last 3 Months Family History Medical History Relation Name Comments None Reported Brother None Reported Brother Heart Disease Father Unknown to Patient Maternal Aunt Unknown to Patient Maternal Aunt Unknown to Patient Maternal Aunt Unknown to Patient Maternal Aunt Unknown to Patient Maternal Grandfather Unknown to Patient Maternal Uncle Unknown to Patient Maternal Uncle Unknown to Patient Maternal Uncle Unknown to Patient Maternal Uncle Unknown to Patient Maternal Uncle Diabetes Mother Heart Disease Mother Unknown to Patient Paternal Aunt Unknown to Patient Paternal Aunt Unknown to Patient Paternal Aunt Unknown to Patient Paternal Aunt Unknown to Patient Paternal Aunt Early Paternal Aunt Early Paternal Aunt Stroke Paternal Grandfather Unknown to Patient Paternal Grandmother Unknown to Patient Paternal 4 Uncle Unknown to Patient Paternal 3 Uncle Cancer Sister Cervical Cancer Sister None Reported Sister None Reported Sister None Reported Sister Relation Name Status Comments Brother Alive Brother MVA (Age 30) Father (Age 70s) Maternal Aunt (Age 70s) Maternal Aunt (Age 70s) Maternal Aunt (Age 70s) Maternal Aunt old age (Age 95) Maternal Grandfather Maternal Grandmother balance problem (Age 80s) Maternal Uncle Maternal Uncle Maternal Uncle Maternal Uncle Maternal Uncle Mother (Age 70) Paternal Aunt Alive Paternal Aunt Alive Paternal Aunt Paternal Aunt Paternal Aunt Paternal Aunt childhood disease Paternal Aunt childhood disease Paternal Grandfather Paternal Grandmother old age Paternal Uncle 4 Paternal Uncle 3 Alive Sister (Age 57) Sister Alive Sister Alive Sister Alive Sister MVA (Age 15) Social History Date Tobacco Use Types Packs/Day Years Used Quit: 02/14/1991 Former Smoker Smokeless Tobacco: Never Used Alcohol Use Drinks/Week oz/Week Comments Yes 1 Cans of 0.6 very little beer Sex Assigned at Date Recorded Not on file Industry Job Start Date Occupation Not on file Not on file Not on file Travel End Travel History Travel Start No recent travel history available. Last Filed Vital Signs Time Taken Vital Sign Reading 11/02/2016 8:20 AM CDT Blood Pressure 110/70 11/02/2016 8:20 AM CDT Pulse 53 08/06/2016 1:52 PM CDT Temperature 36.8 C (98.2 F) - Respiratory Rate - 08/06/2016 1:52 PM CDT Oxygen Saturation 98% - Inhaled Oxygen - Concentration 11/02/2016 8:20 AM CDT Weight 92.5 kg (204 lb) 11/02/2016 8:20 AM CDT Height 180.3 cm (5' 11") 11/02/2016 8:20 AM CDT Body Mass Index 28.45 Plan of Treatment Health Maintenance Due Date Last Done Comments HEPATITIS C SCREENING 1955 PHYSICAL (COMPREHENSIVE) 02/25/1963 EXAM HIV SCREENING 02/25/1971 DTAP/TDAP VACCINES (1 - 02/25/1974 Tdap) COLORECTAL CANCER 02/25/2006 SCREENING SHINGLES RECOMBINANT 02/25/2006 VACCINE (1 of 2) INFLUENZA VACCINE 09/14/2018 Results Not on filefrom Last 3 Months Insurance Type Payer Benefit Subscriber ID Effective Phone Address Plan / Dates Group AETNA AETNA xxxxxxxxxx [id number] CHOICE POS resent II Advance Directives Patient has advance care planning documents, and code status on file. For more information, please contact: [facility] [address] [place] [address] Date Inactivated Comments Code Status Date Activated 08/06/2016 5:57 PM Full Code 08/04/2016 5:54 AM Provider has discussed Code Status Yes w/Patient or Family? 08/04/2016 5:54 AM DNAR-Full 08/04/2016 3:22 AM Intervention Provider has discussed Code Status Yes w/Patient or Family? 08/04/2016 3:22 AM Full Code 08/03/2016 7:16 PM Provider has discussed Code Status No, more discussion w/Patient or Family? needed
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
--- OUTSIDE RECORDS SUMMARY | 2018-05-22 06:38 | XMS REPORT ---
Author Author [facility] Medical Staff Organization [facility] Address [address] [place], [place] [address] Phone [phone] Care Team Providers Care Industrial Gas Servicer Helper Name Role Phone FARAZ LEE MD PP [phone] Summary purpose CCDA Sent to [facility] Chief Complaint and Reason for Visit [...] Code Type Description Date Performed Performing Physician 35999 CPT-4 ROUTINE VENIPUNCTURE 07-11-2016 STERLING BOWMAN 03745 CPT-4 COMPREHEN METABOLIC PANEL 07-11-2016 STERLING BOWMAN 22263 CPT-4 ASSAY OF TROPONIN, QUANT 07-11-2016 STERLING BOWMAN 56831 CPT-4 ASSAY OF CK (CPK) 07-11-2016 STERLING BOWMAN 66240 CPT-4 CREATINE, MB FRACTION 07-11-2016 STERLING BOWMAN 81254 CPT-4 ELECTROCARDIOGRAM, TRACING 07-11-2016 STERLING BOWMAN 42561 CPT-4 ASSAY OF MYOGLOBIN 07-11-2016 STERLING BOWMAN 84897 CPT-4 COMPLETE CBC W/AUTO DIFF WBC 07-11-2016 STERLING BOWMAN J2405 CPT-4 ONDANSETRON HCL INJECTION 07-11-2016 STERLING BOWMAN J7030 CPT-4 INFUSION, NS, 1000 CC 07-11-2016 STERLING BOWMAN J7030 CPT-4 INFUSION, NS, 1000 CC 07-11-2016 STERLING BOWMAN 05839 CPT-4 CHEST X-RAY 07-11-2016 STERLING BOWMAN 19553 CPT-4 CULTURE, BACTERIA, OTHER 07-11-2016 STERLING BOWMAN J7030 CPT-4 INFUSION, NS, 1000 CC 07-11-2016 STERLING BOWMAN J0696 CPT-4 CEFTRIAXONE SODIUM INJECTION 07-11-2016 STERLING BOWMAN J7050 CPT-4 NS SOLUTION 250 CC INFUSION 07-11-2016 STERLING BOWMAN 70095 CPT-4 THER/PROPH/DIAG INJ, IV PUSH 07-11-2016 STERLING BOWMAN 05569 CPT-4 EMERGENCY DEPT VISIT 07-11-2016 STERLING BOWMAN 39397 CPT-4 TX/PRO/DX INJ NEW DRUG ADDON 07-11-2016 STERLING BOWMAN Functional status No functional or [...]
--- OUTSIDE RECORDS SUMMARY | 2018-05-22 06:39 | XMS REPORT ---
Author Author [facility] Medical Staff Organization [facility] Address [address] [place], [place] [address] Phone [phone] Care Team Providers Care Clay Processing Labourer Name Role Phone FARAZ LEE MD PP [phone] Summary purpose CCDA Sent to [facility] Chief Complaint and Reason for Visit No [...] Code Type Description Date Performed Performing Physician 82948 CPT-4 ELECTROCARDIOGRAM REPORT 07-11-2016 VINICIUS BROWNE Functional status No functional or cognitive status [...]
--- OUTSIDE RECORDS SUMMARY | 2018-05-22 06:39 | XMS REPORT ---
Author Author [facility] Medical Staff Organization [facility] Address [address] [place], [place] [address] Phone [phone] Care Team Providers Care Soyfreeze Operator Name Role Phone JESUS RODRIGUES, FARAZ PP [phone] FARAZ LEE MD PP [phone] STERLING BOWMAN DO PP [phone] Summary purpose CCDA Sent to [facility] Chief Complaint and Reason for Visit Admit Diagnosis 1 N/V INCREASED SOB CHEST PAIN Problem list No authorized problems tracked for [...] Code Type Description Date Performed Performing Physician 69277 CPT-4 ASSAY OF TROPONIN, QUANT 07-15-2016 STERLING BOWMAN 73745 CPT-4 ASSAY OF CK (CPK) 07-15-2016 STERLING BOWMAN 63225 CPT-4 CREATINE, MB FRACTION 07-15-2016 STERLING BOWMAN 51274 CPT-4 COMPREHEN METABOLIC PANEL 07-15-2016 STERLING BOWMAN 12271 CPT-4 INFLUENZA ASSAY W/OPTIC 07-15-2016 STERLING BOWMAN 65029 CPT-4 ASSAY OF AMYLASE 07-15-2016 STERLING BOWMAN 32294 CPT-4 ASSAY OF MYOGLOBIN 07-15-2016 STERLING BOWMAN 37819 CPT-4 NATRIURETIC PEPTIDE 07-15-2016 STERLING BOWMAN 39191 CPT-4 COMPLETE CBC W/AUTO DIFF WBC 07-15-2016 STERLING BOWMAN 89777 CPT-4 ELECTROCARDIOGRAM, TRACING 07-15-2016 STERLING BOWMAN J2405 CPT-4 ONDANSETRON HCL INJECTION 07-15-2016 STERLING BWOMAN 54649 CPT-4 CT THORAX W/DYE 07-15-2016 STERLING BOWMAN J1644 CPT-4 HEPARIN INJECTION 07-15-2016 STERLING BOWMAN C9113 CPT-4 INJ PANTOPRAZOLE SODIUM, VIA 07-15-2016 STERLING BOWMAN J1644 CPT-4 HEPARIN INJECTION 07-15-2016 STERLING BOWMAN 83108 CPT-4 EMERGENCY DEPT VISIT 07-15-2016 STERLING BOWMAN 41279 CPT-4 THER/PROPH/DIAG IV INF, INIT 07-15-2016 STERLING BOWMAN 68802 CPT-4 TX/PRO/DX INJ NEW DRUG ADDON 07-15-2016 STERLING BOWMAN J1644 CPT-4 HEPARIN INJECTION 07-15-2016 STERLING BOWMAN Q9967 CPT-4 LOCM 300-399MG/ML IODINE,1ML 07-15-2016 STERLING BOWMAN J7050 CPT-4 NS SOLUTION 250 CC INFUSION 07-15-2016 STERLING BOWMAN 86270 CPT-4 TX/PRO/DX INJ NEW DRUG SIGNAL INSPECTOR 07-15-2016 STERLING BOWMAN Functional status No functional or [...]
--- OUTSIDE RECORDS SUMMARY | 2018-05-22 06:39 | XMS REPORT ---
Author Author [facility] Medical Staff Organization [facility] Address [address] [place], [place] [address] Phone [phone] Care Team Providers Care Stock Layer Name Role Phone FARAZ LEE MD PP [phone] Summary purpose CCDA Sent to [facility] Chief Complaint and Reason for Visit [...]
--- OUTSIDE RECORDS SUMMARY | 2018-05-22 06:39 | XMS REPORT ---
Author Author [facility] Medical Staff Organization [facility] Address [address] [place], [place] [address] Phone [phone] Care Team Providers Care Snack Stewardess Name Role Phone FARAZ LEE MD PP [phone] Summary purpose CCDA Sent to [facility] Chief Complaint and Reason for Visit [...] Code Type Description Date Performed Performing Physician 72650 CPT-4 EMERGENCY DEPT VISIT 07-11-2016 STERLING BOWMAN Functional status No functional [...]
--- OUTSIDE RECORDS SUMMARY | 2018-05-22 06:41 | XMS REPORT | Continuity of Care Document ---
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 seen on the right. Vertebrals are very nearly codominant, the right slightly larger than the left. Impression: 1. Small vessel changes, greater than typically seen for age in number however these are of a normal distribution anatomically. No evidence for intracranial mass, focal hemorrhage, or edema. 2. Normal MR angiogram of the brain. PAGE 1 Signed Report (CONTINUED) DIAGNOSTIC IMAGING REPORT [facility] - [address] [place] [address] PHONE #: [phone] FAX #: [phone] Name: JEN DESAI Loc: W.4307 1 Radiology No: [id number] : 1955 Age: 61 Sex: M Status: ADM IN Unit No: [id number] [facility] A[facility]ah juarez Acct: [id number] Reason For Exam: nausea, vomiting, vertigo Exam Date: 07/21/2016 EXAMS: CPT CODE: [id number] MRI BRAIN W W/O 08604 [id number] MRA HEAD W/O [facility] 91651 <Continued> at 1724 Reported and signed by: PETE REAL JR., MD CC: Zaida Lee MD; Alexander Booker MD; Jb Mena MD Technologist: AMEE HAYES Transcribed Date/Time: (1951)Server Administrator: JAN Printed Date /Time: 07/21/2016 (8902) BATCH NO: N/A PAGE 2 Signed Report Radiology Report from [facility] on 07/21/2016 17:09:00 DIAGNOSTIC IMAGING REPORT [facility] - [address] [address] PHONE #: [phone] FAX #: [phone] ------- Name: JEN DESAI Loc: W.4307 1 Radiology No: [id number] : 1955 Age: 61 Sex: M Status: ADM IN Unit No: [id number] Phys: Jonah Frank Acct: [id number] Reason For Exam: nausea, vomiting , vertigo Exam Date: 07/21/2016 EXAMS: CPT CODE: [id number] MRI BRAIN W W/O 37446 [id number] MRA HEAD W/O [facility] 87786 1500 Indication: Nausea vomiting vertigo Scans scans obtained utilizing T1-T2 parameters precontrast postcontrast images also obtained through the brain. Comparison CT head 07/19/2016, James. MRA is performed using a 3-D [id number] sequence. Source projectional and standard T2 images are reviewed. Diffusion-weighted imaging shows no areas of abnormal restricted diffusion. Ventricular size shape and position is normal for age with no mass effect or shift of midline structures. Is unchanged from the prior exam. T2-weighted images including FLAIR images show scattered foci of increased signal in the periventricular regions, consistent with small vessel changes of a chronic nature. Multiple other similar areas are seen in the frontal lobes bilaterally more peripherally located in the centrum semiovale and subcortical regions. Susceptibility images show no areas of signal abnormality to suggest hemorrhage associated with these or to suggest amyloid deposition. While the distribution of these foci of increased signal is typical for age, the number is greater than typically expected. Postcontrast images show no abnormal enhancement within the brain parenchyma and no extra-axial enhancing masses or collections are present expected flow voids are noted. MR angiography shows no evidence for aneurysm in the [place]. Middle cerebral arteries bilaterally are symmetric as is the intensity of the opercular branches bilaterally, suggesting similar rates of flow. Anterior communicator is not specifically seen but there is no evidence for aneurysm formation. Embryonic origin right posterior cerebral is noted posterior communicator on the left comes off very nearly the same level but is not as robust in size of flow than that seen on the right. Vertebrals are very nearly codominant, the right slightly larger than the left. Impression: 1. Small vessel changes, greater than typically seen for age in number however these are of a normal distribution anatomically. No evidence for intracranial mass, focal hemorrhage, or edema. 2. Normal MR angiogram of the brain. PAGE 1 Signed Report (CONTINUED) DIAGNOSTIC IMAGING REPORT [facility] - [address] [place] [address] PHONE #: [phone] FAX #: [phone] Name: JEN DESAI Loc: W.4307 1 Radiology No: [id number] : 1955 Age: 61 Sex: M Status: ADM IN Unit No: [id number] Phys: Jonah Frank Acct: [id number] Reason For Exam: nausea, vomiting, vertigo Exam Date: 07/21/2016 EXAMS: CPT CODE: [id number] MRI BRAIN W W/O 33473 [id number] MRA HEAD W/O CONTR 74896 <Continued> at 1704 Reported and signed by: PETE REAL JR., MD CC: Zaida Lee MD; Alexander Booker MD; Jb Mena MD Technologist: AMEE HAYES Transcribed Date/Time: (3378)Server Administrator: JAN Printed Date /Time: 07/21/2016 (4003) BATCH NO: N/A PAGE 2 Signed Report Radiology Report from [facility] on 07/22/2016 14:48:00 DIAGNOSTIC IMAGING REPORT [facility] - [address] [address] PHONE #: [phone] FAX #: [phone] ------- Name: JEN DESAI Loc: W.4307 1 Radiology No: [id number] : 1955 Age: 61 Sex: M Status: ADM IN Unit No: [id number] Phys: Jb Jaime MD Acct: [id number] Reason For Exam: dyspnea post pe Exam Date: 07/22/2016 EXAMS: CPT CODE: [id number] CHEST AP/PA LATERAL 30534 TIME OF STUDY: 07/22/2016 11:07 AM REASON FOR EXAM: dyspnea post pe COMPARISON: Chest x-ray 07/17/16 FINDINGS: PA and lateral upright views of the chest were obtained. There has been interval development of confluent airspace opacities at the right lung base. No left-sided consolidations are seen. Cardiac size is at the upper limits of normal. Mild vascular congestion is noted without overt edema. No pleural effusions or pneumothoraces are present. IMPRESSION: 1. Interval development of confluent air shape opacities at the right lung base. Given the history of pulmonary was, findings may represent pulmonary infarction. 2. Borderline enlargement of the cardiac silhouette along with mild vascular congestion. No overt edema. Electronically Signed by CAROL WEBER MD on 09/2016 at 9874 Reported and signed by: CAROL WEBER MD CC: Zaida Lee MD; Alexander Booker MD; Jb Mena MD Technologist: PRABHJOT PADILLA Transcribed Date/Time: 07/22/2016 (7319)Server Administrator: YAMINI Printed Date/Time: 07/22/2016 (3665) BATCH NO: N/A PAGE 1 Signed Report Radiology Report from [facility] on 07/23/2016 23:30:00 DIAGNOSTIC IMAGING REPORT [facility] - [address] [address] PHONE #: [phone] FAX #: [phone] ------- Name: JEN DESAI Loc: W.4310 1 Radiology No: [id number] : 1955 Age: 61 Sex: M Status: ADM IN Unit No: [id number] Phys: Alexander Banegas MD Acct: [id number] Reason For Exam: PARALYSIS Exam Date: 07/23/2016 EXAMS: CPT CODE: [id number] MRI CERV CORD W W/O 42851 REASON FOR EXAM: PARALYSIS . Time of the current examination: 07/23/2016 8:30 PM COMPARISON: None available TECHNIQUE: Routine non-enhanced multiplanar, multisequence images of the cervical spine were obtained with and without gadolinium. FINDINGS: There is normal anatomic alignment of the cervical spine. No facet dislocation is seen. There is no acute fracture or dislocation. The visualized vertebral bodies demonstrate normal height and marrow signal. The craniocervical junction is unremarkable. There is no tonsillar ectopia. No ligamentous injury is seen. There is no epidural hematoma. The visualized spinal cord has a normal appearance. No focal cord lesions are present. There is no evidence of cord compression. There are no abnormally enhancing lesions within the cord. The prevertebral soft tissue thickness is within normal limits. There is multilevel disc height loss and desiccation, most prominently at C3-4. The axial images the C2/3 level demonstrate no disk bulge, herniation, spinal canal or foraminal stenosis. C3/4 level: There is a posteriorly protruding annulus which causes mild narrowing of the central canal. There is bilateral facet arthropathy. There is mild right foraminal stenosis. There is no significant left foraminal stenosis. C4/5 level: There is a posteriorly protruding annulus which causes mild narrowing of the central canal. There is bilateral facet arthropathy. There is moderately severe right foraminal stenosis and moderate left foraminal stenosis. C5/6 level: There is no large posteriorly protruding annulus or disc PAGE 1 Signed Report (CONTINUED) DIAGNOSTIC IMAGING REPORT [facility] - [address] [address] PHONE #: [phone] FAX #: [phone] Name: JEN DESAI HILARIO Loc: W.4310 1 Radiology No: [id number] : 1955 Age: 61 Sex: M Status: ADM IN Unit No: [id number] Phys: Alexander Banegas MD Acct: [id number] Reason For Exam: wang for Exam: PARALYSIS Exam Date: 2016 --- EXAMS: CPT CODE: [id number] MRI CERV CORD W W/O 06723 < Continued> herniation. There is bilateral facet arthropathy. There is mild foraminal narrowing on the left but no significant foraminal narrowing on the right. C6/7 level: There is a small posteriorly protruding annulus which does not result in any significant central canal stenosis. There is bilateral facet arthropathy. There is mild left foraminal stenosis but no significant right foraminal stenosis. C7/T1 level: There is no significant posteriorly protruding annulus. There is no significant facet arthropathy. There is no significant spinal canal or foraminal stenosis. IMPRESSION: 1. No acute fracture or dislocation the cervical spine. No bony lesions. 2. Intact ligamentous structures. No epidural mass or hematoma. 3. No focal cord lesions or cord compression. 4. Degenerative change as detailed above. I have personally reviewed these images and approved or corrected the resident physician's interpretation. at 3252 RESIDENT: KELLI VIDALES MD Reported and signed by: LENIN TYSON MD CC: Zaida Lee MD; Alexander Booker MD; Jb Mena MD Technologist: GAYATHRI RODRIGUEZ; OPAL STRICKLAND Transcribed Date/Time: 2016 (8740)Server Administrator: LIAM Printed Date/ Time: 07/23/2016 (3462) BATCH NO: N/A PAGE 2 Signed Report Radiology Report from [facility] on 07/23/2016 23:35:00 DIAGNOSTIC IMAGING REPORT [facility] - [address] [address] PHONE #: [phone] FAX #: [phone] ------- Name: JEN DESAI Loc: W.4310 1 Radiology No: [id number] : 1955 Age: 61 Sex: M Status: ADM IN Unit No: [id number] Phys: ADRIANAAlexander Todd MD Acct: [id number] Reason For Exam: PARALYSIS Exam Date: 07/23/2016 EXAMS: CPT CODE: [id number] MRI THOR CORD W W/O 80336 REASON FOR EXAM: PARALYSIS Time of the current examination:07/23/2016 8:30 PM COMPARISON: None available. Correlation is made to the CT chest exam dated 07/15/2016 performed at [facility] and the chest radiograph performed at [facility] on 07/22/2016. TECHNIQUE: Routine pre-and postcontrast enhanced multiplanar, multisequence MRI of the thoracic spine was obtained. FINDINGS: There is normal anatomic alignment of the thoracic spine. The visualized vertebral bodies demonstrate normal marrow signal. There is no acute compression fracture. No focal bony lesions are seen. The visualized spinal cord is normal in caliber and intrinsic signal. There is no hemorrhage within the cord. There is no cord compression. No abnormal enhancement is seen within the cord. No epidural hematoma is seen. No large pre or paravertebral masses are seen. Mild disc desiccation is noted at multiple levels. The axial images demonstrate no disk bulge, herniation, central canal nor foraminal stenosis. There is airspace disease in the visualized right lung posteriorly. This appears more extensive than on the prior imaging. IMPRESSION: 1. No acute compression fracture in the thoracic spine. 2. No ligamentous or cord injury. 3. No epidural hematoma. 4. Airspace disease in the visualized posterior right lung. This appears more extensive than on the prior imaging studies. I have personally reviewed these images and approved or corrected the resident physician's interpretation. PAGE 1 Signed Report (CONTINUED) DIAGNOSTIC IMAGING REPORT [facility] - [address] [address] PHONE #: FAX #: [phone] Name: JEN DESAI Loc: W.4310 1 Radiology No: [id number] : 1955 Age: 61 Sex: M Status: ADM IN Unit No: [id number] Phys: Alexander Banegas MD Acct: [id number] Reason For Exam: PARALYSIS Exam Date: 07/23/2016 EXAMS: CPT CODE: [id number] MRI THOR CORD W W/O 96795 <Continued> Electronically Signed by LENIN TYSON MD on 10/2016 at 2330 RESIDENT: KELLI VIDALES MD Reported and signed by: LENIN TYSON MD CC: Zaida Lee MD; Alexander Booker MD; Jb Mena MD Technologist: GAYATHRI RODRIGUEZ; OPAL STRICKLAND Transcribed Date/Time: 07/23/2016 (3686)Server Administrator: LIAM Printed Date/Time: 07/23/2016 (8143) BATCH NO: N/A PAGE 2 Signed Report [facility] on 07/23/2016 23:38:00 DIAGNOSTIC IMAGING REPORT [facility] - [address] [address] PHONE #: [phone] FAX #: [phone] ------- Name: JEN DESAI Loc: W.4310 1 Radiology No: [id number] : 1955 Age: 61 Sex: M Status: ADM IN Unit No: [id number] Phys: Alexander Banegas MD Acct: [id number] Reason For Exam: PARALYSIS Exam Date: 07/23/2016 EXAMS: CPT CODE: [id number] MRI LUMB CORD W W/O 83330 REASON FOR EXAM: PARALYSIS TIME OF CURRENT STUDY: 07/23/2016 8:30 PM COMPARISON: None available TECHNIQUE: Routine pre- and post contrast enhanced multiplanar, multisequence MRI of the lumbar spine was obtained. FINDINGS: 5 lumbar type vertebral bodies are identified. The lowest well-formed disc space is designated as L5-S1 level for numbering purposes. There is normal anatomic alignment of the lumbar spine. No acute compression fractures are seen. The visualized vertebral bodies demonstrate normal height and marrow signal. The ligamentous structures are intact. No epidural hematoma or mass is seen. No enhancing vertebral body of intrathecal lesions are seen. The conus is normal in position and configuration. No focal cord lesion is present. There is no abnormal enhancement. No large prevertebral or paraspinal soft tissue masses are seen. There is multilevel disc height loss and desiccation, worst at L5- S1 L1/L2 level: The axial images demonstrate no disk bulge, herniation, spinal canal or foraminal stenosis. L2/L3 level: There is a small posteriorly protruding annulus. There is no significant spinal canal or foraminal stenosis. L3/L4 level: There is a minimal posteriorly protruding annulus. There is bilateral facet arthropathy. There is no significant spinal canal or foraminal stenosis. L4/L5 level: There is a posteriorly protruding annulus which does not cause significant spinal canal stenosis. There is no significant foraminal stenosis on either side. L5/S1 level: There is a minimal posteriorly protruding annulus which does not cause significant spinal canal stenosis. There is no PAGE 1 Signed Report (CONTINUED) DIAGNOSTIC IMAGING REPORT [facility] - [address] [place] [address] PHONE #: FAX #: [phone] Name: JEN DESAI Loc: W.4310 1 Radiology No: [id number] : 1955 Age: 61 Sex: M Status: ADM IN Unit No: [id number] Phys: Alexander Banegas MD Acct: [id number] Reason For Exam: wang for Exam: PARALYSIS Exam Date: 07/23/2016 EXAMS: CPT CODE: [id number] MRI LUMB CORD W W/O 93960 <Continued> significant foraminal stenosis on either side. IMPRESSION: 1. No acute fracture or dislocation involving the lumbar spine. No cord injury or epidural hematoma. 2. Mild degenerative change as above. I have personally reviewed these images and approved or corrected the resident physician's interpretation. at 3183 RESIDENT: KELLI VIDALES MD Reported and signed by: LENIN TYSON MD CC: Zaida Lee MD; Alexander Booker MD; Jb Mena MD Technologist: GAYATHRI RODRIGUEZ; OPAL STRICKLAND Transcribed Date/Time: 07/23/2016 (7287) Server Administrator: LIAM Printed Date/Time: 2016 (4576) BATCH NO: N/A PAGE 2 Signed Report Radiology Report from [facility] on 07/25/2016 10:55:00 DIAGNOSTIC IMAGING REPORT [facility] - [address] [address] PHONE #: [phone] FAX #: [phone] ------- Name: JEN DESAI Loc: W.4310 1 Radiology No: [id number] : 1955 Age: 61 Sex: M Status: ADM IN Unit No: [id number] Phys: Sánchez Rojo DO Acct: [id number] Reason For Exam: transaminitis Exam Date: 07/25/2016 EXAMS: CPT CODE: [id number] [place] [address] INDICATION: Transaminitis. TIME: 2016 8:09 AM COMPARISON: None TECHNIQUE: High resolution grayscale and color-flow ultrasound of the liver and gallbladder was performed. FINDINGS: The liver has a smooth contour and normal echogenicity. No focal lesions are seen. No intra-abdominal ascites is visualized. No gallbladder wall thickening, shadowing intraluminal stones, or pericholecystic fluid is detected. Reported sonographic Claire's sign was negative. The common bile duct is nondilated, measuring 3 mm. Included views of the pancreas are unremarkable. Included views of the IVC and aorta are unremarkable. The right kidney measures 10.7 cm in length. No hydronephrosis or nephrolithiasis is seen. IMPRESSION : 1. No sonographic abnormalities involving the liver or gallbladder. No focal hepatic lesions or ascites. No cholelithiasis or sonographic evidence of cholecystitis. I have personally reviewed these images and corrected the resident physician's interpretation if necessary. at 1050 RESIDENT: LILIYA STEARNS MD Reported and signed by: ROEL METZGER MD PAGE 1 Signed Report (CONTINUED) DIAGNOSTIC IMAGING REPORT [facility] - [address] [place] [address] PHONE #: [phone] FAX #: [phone] Name: JEN DESAI Loc: W.4310 1 Radiology No: [id number] : 1955 Age: 61 Sex: M Status: ADM IN Unit No: [id number] Phys: Sánchez Rojo DO Acct: [id number] Reason For Exam: transaminitis Exam Date: 2016 --- EXAMS: CPT CODE: [id number] [place] [address] < Continued> CC: Zaida Lee MD; Alexander Booker MD; Jb Mena MD Technologist: LEILA GOTTLIEB Transcribed Date/Time: 07/25/2016 (7184)Server Administrator: GIULIA Printed Date/Time: 07/25/2016 (5325) BATCH NO : N/A PAGE 2 Signed Report Radiology Report from [facility] on 07/25/2016 17:05:00 DIAGNOSTIC IMAGING REPORT [facility] - [address] [address] PHONE #: [phone] FAX #: [phone] ------- Name: JEN DESAI Loc: W.4310 1 Radiology No: [id number] : 1955 Age: 61 Sex: M Status: ADM IN Unit No: [id number] Phys: Sánchez Rojo DO Acct: [id number] Reason For Exam: COURTNEY, change in speech Exam Date: 07/25/2016 EXAMS: CPT CODE: [id number] CT HEAD W/O CONTRAST 86307 TIME OF STUDY: 07/25/2016 3:58 PM REASON FOR EXAM: VALDEZ, change in speech COMPARISON: MRI brain 07/21/[address] head 07/19/2016. TECHNIQUE: Routine non contrast enhanced axial images were obtained for the skull base to the vertex. FINDINGS: The ventricles and cortical sulci demonstrate mild diffuse prominence, with generalized parenchymal volume loss. There is no midline shift or mass- effect. No acute intra-axial hemorrhage is present. No evidence of acute territorial ischemia is present. No extra-axial masses or collections are present. There is no focal intra-axial mass. There are areas of abnormal low attenuation in the white matter. Robbins-white matter differentiation is maintained. The bony calvarium is intact. The paranasal sinuses are clear. Mastoid air cells are patent. The globes and orbits are unremarkable. There is calcific atherosclerosis in the bilateral internal carotid arteries and vertebral arteries. IMPRESSION: 1. No CT evidence of acute territorial ischemia. No hemorrhage or focal intra-axial mass. If clinical findings concerning for acute ischemia are present, MRI could be considered for further evaluation. 2. White matter changes likely representing chronic microvascular changes. 3. Generalized parenchymal volume loss. I have personally reviewed these images and approved or corrected the resident physician's interpretation. PAGE 1 Signed Report (CONTINUED) DIAGNOSTIC IMAGING REPORT [facility] - [address] [place] [address] PHONE #: [phone] FAX #: [phone] Name: JEN DESAI Loc: W.4310 1 Radiology No: [id number] : 1955 Age: 61 Sex: M Status: ADM IN Unit No: [id number] Phys: Sánchez Rojo DO Acct: [id number] Reason For Exam: VALDEZ, change in speech Exam Date: 07/25/2016 EXAMS: CPT CODE: [id number] CT HEAD W/O CONTRAST 21197 <Continued> at 1700 RESIDENT: DANIEL DE LEON DO Reported and signed by : CAROL WEBER MD CC: Zaida Lee MD; Alexander Booker MD; Jb Mena MD Technologist: ROBIN APONTE Transcribed Date/Time: 07/25/2016 (1700) Server Administrator: YAMINI Printed Date/Time: 2016 (0788) BATCH NO: N/A PAGE 2 Signed Report Encounters ACCT No. Visit Date/Time Discharge Status Pt. Type Provider Facility Loc./Unit Complaint [id number] 04/11/2018 10:56:00 04/11/2018 10:56:00 DIS Outpatient JESUS RODRIGUES, ZAIDA [facility] RAD [id number] 04/05/2018 11:48:00 04/05/2018 11:48:00 DIS Outpatient NIKOLAS JULIANNE LEACH RAD [id number] 04/04/2018 11:12:00 04/04/2018 11:12:00 DIS Outpatient NIKOLAS JULIANNE LEACH RAD [id number] 03/30/2018 07:27:00 03/30/2018 23:59:59 CLS Outpatient STERLING BOWMAN DO [id number] 03/30/2018 08:02:00 03/30/2018 10:43:00 DIS Emergency STERLING BOWMAN DO [id number] 03/24/2018 13:56:00 03/24/2018 23:59:59 CLS [facility] [id number] 03/24/2018 13:55:00 03/24/2018 23:59:59 CLS [facility] [id number] 02/13/2018 07:00:00 02/13/2018 07:00:00 DIS Outpatient CODI RODRIGUES, LUCILA Nguyen LAB [id number] 09/12/2017 09:42:00 09/12/2017 09:42:00 DIS Outpatient JESUS RODRIGUES, ZAIDA Colby [facility] [id number] 08/19/2017 17:13:00 08/19/2017 17:13:00 DIS Outpatient DEVEN SMITH SALOME [facility] LAB [id number] 07/15/2016 10:39:00 07/15/2016 12:50:00 DIS Emergency [facility] ER [id number] 12/03/2015 11:40:00 12/03/2015 11:40:00 DIS Outpatient [facility] OTHER [id number] 12/03/2015 08:44:00 12/03/2015 09:44:00 DIS Outpatient [facility] OTHER [id number] 08/13/2015 11:58:00 08/13/2015 11:58:00 DIS Outpatient [facility] OTHER [id number] 08/12/2015 16:36:00 08/12/2015 16:36:00 [facility] [id number] 08/09/2015 14:26:00 08/10/2015 22:16:00 DIS Emergency JESUS RODRIGUES, [facility] ER [id number] 08/09/2015 14:50:00 08/09/2015 14:50:00 DIS Outpatient [facility] OTHER [id number] 11/27/2014 17:52:00 11/27/2014 17:52:00 [id number] 07/10/2013 07:45:00 07/10/2013 07:45:00 DIS Outpatient [facility] OTHER [id number] 05/21/2013 14:20:00 06/08/2013 13:53:00 DIS Outpatient SANDRA RODRIGUES, [facility] OTHER [id number] 05/15/2013 12:22:00 05/15/2013 12:22:00 DIS Outpatient SANDRA RODRIGUES, JERRICA [facility] OTHER [id number] 04/04/2013 07:45:00 04/04/2013 08:35:00 DIS Emergency NICKOLAS RODRIGUES, [facility] ER [id number] 04/04/2013 08:00:00 04/04/2013 08:00:00 DIS Outpatient NICKOLAS RODRIGUES, [facility] OTHER [id number] 10/31/2012 07:13:00 10/31/2012 07:13:00 DIS Outpatient COLBY STERLING LEACH [facility] OTHER [id number] 05/17/2018 16:01:00 Document Registration [id number] 05/10/2018 09:57:00 Document Registration [id number] 05/03/2018 11:18:00 Document Registration [id number] 05/01/2018 08:41:00 Document Registration [id number] 04/21/2018 13:42:00 Document Registration [id number] 04/19/2018 15:18:00 Document Registration [id number] 04/11/2018 10:53:00 Document Registration [id number] 04/04/2018 09:13:00 Document Registration [id number] 03/31/2018 09:12:00 Document Registration [id number] 03/30/2018 11:47:00 Document Registration [id number] 11/23/2017 15:27:00 Document Registration [id number] 09/05/2017 16:42:00 Document Registration [id number] 08/22/2017 09:08:00 Document Registration [id number] 08/19/2017 08:32:00 Document Registration [id number] 07/25/2017 09:32:00 Document Registration [id number] 06/23/2017 09:05:00 Document Registration [id number] 07/25/2013 07:49:00 07/25/2013 07:49:00 DIS Outpatient BENJAMÍN BURGESS [facility] RAD [id number] 07/12/2013 10:34:00 07/12/2013 16:20:00 DIS Inpatient BENJAMÍN BURGESS [facility] OPS [id number] 01/13/2013 00:00:00 Document Registration [id number] 10/26/2016 10:40:28 10/26/2016 23:59:59 CLS Outpatient Pauly Hurtado [id number] 08/10/2016 12:03:23 08/10/2016 23:59:59 CLS Outpatient Roscoe Pappas [id number] 08/09/2016 15:33:29 08/09/2016 23:59:59 CLS Outpatient Caden Baeza [id number] 01/27/2016 17:57:22 01/27/2016 23:59:59 CLS Outpatient Lopezbernard Cooper [id number] 07/15/2016 13:45:00 07/27/2016 08:30:00 DIS Inpatient Rajesh RODRIGUES, [facility] W.3TN [id number] 07/11/2016 17:05:00 07/11/2016 21:25:00 DIS Emergency COLBY LEACH, [facility] ER
[2018-05-22 07:31] VITALS: BP 138/110
[2018-05-22 07:48] LABS: HEMOGLOBIN 12.6 G/DL (13.3-17.7); MEAN PLATELET VOLUME 9.6 FL (7.4-10.4); RED CELL DISTRIBUTION WIDTH 13.8 % (10.0-14.5)
--- NOTE | 2018-05-22 07:52 | Diagnostic Imaging Report ---
EXAMINATION: Chest radiograph, portable AP view. DATE: May 22, 2018 at 0727 hours. INDICATION: 63-year-old male, preoperative exam. COMPARISON: None. FINDINGS: Heart size and mediastinal contours are grossly unremarkable. There is no identified pneumothorax. There is nonspecific airspace consolidation in the right mid and lower lung zones. There is blunting of the right lateral costophrenic angle. IMPRESSION: 1. Nonspecific airspace consolidation in the right mid and lower lung zones as well as blunting of the right lateral costophrenic angle which potentially may relate to effusion. Findings may relate to airspace consolidative process, effusion, and/or components of atelectasis. Dictated by: Dictated on workstation # [id number]
[2018-05-22 08:00] LABS: INR 2.4 (0.8-1.4); PROTHROMBIN TIME PATIENT 27.4 SEC (12.2-14.7)
[2018-05-22 08:08] LABS: CARBON DIOXIDE 27 MMOL/L (21-32); CHLORIDE 105 MMOL/L (98-107); POTASSIUM 4.3 MMOL/L (3.6-5.0); SODIUM 141 MMOL/L (135-145)
[2018-05-22 08:09] LABS: ALANINE AMINOTRANSFERASE 24 U/L (0-55); ALBUMIN 4.1 GM/DL (3.2-4.5); ALKALINE PHOSPHATASE 84 U/L (40-136); BILIRUBIN,TOTAL 0.8 MG/DL (0.1-1.0); BUN/CREATININE RATIO 17; CHOLESTEROL 126 MG/DL (< 200); CREATININE SERUM 1.14 MG/DL (0.60-1.30); GFR ESTIMATED > 60; GLUCOSE 85 MG/DL (70-105); HDL CHOLESTEROL 43 MG/DL (40-60); TOTAL PROTEIN 7.4 GM/DL (6.4-8.2); TRIGLYCERIDES 67 MG/DL (<150); VLDL CHOLESTEROL 13 MG/DL (5-40)
[2018-05-22 08:41] VITALS: BP 126/104
[2018-05-22 08:46] VITALS: BP 118/87
[2018-05-22 08:53] VITALS: BP 109/80
--- NOTE | 2018-05-22 08:54 | Cardiac Procedure Note-CS/ASA ---
Pre-Procedure Note Pre-Op Procedure Note H&P Reviewed The H&P was reviewed, patient examined and no changes noted. Date H&P Reviewed: May 22, 2018 Time H&P Reviewed: 08:00 Conscious Sedation Pre-Proced Time 08:00 ASA Score 3 For ASA 3 and 4: Consider anesthesia and medical clearance. Also, for patients with a history of failed moderate sedation consider anesthesia. Airway Lungs Heart ASA score ASA 1: a normal healthy patient ASA 2: a patient with a mild systemic disease (mid diabetes, controlled hypertension, obesity x ASA 3: a patient with a severe systemic disease that limits activity (angina , COPD, prior Myocardial infarction) ASA 4: a patient with an incapacitating disease that is a constant threat to life (CHF, renal failure) ASA 5: a moribund patient not expected to survive 24 hrs. (ruptured aneurysm) ASA 6: a declared brain- patient whose organs are being harvested. For emergent operations, add the letter E after the classification Mallampati Classification Grade 3 Sedation Plan Analgesia, Amnesia, Plan communicated to team members, Discussed options with patient/fam, Discussed risks with patient/fam The patient is an appropriate candidate to undergo the planned procedure, sedation, and anesthesia. The patient immediately re-assessed prior to indication. LUCILA KINCAID MD May 22, 2018 08:54
--- NOTE | 2018-05-22 08:59 | Anesthesia-Procedure Note ---
Procedures/Interventions Procedure Start/Stop/Diagnosis Date of Procedure: May 22, 2018 Start Time: 08:40 Referring Physician: Laura Preprocedural Diagnosis: Atrial Fib Brief History Called to cardiac cath lab radiology technologist for scheduled sedation for ILA/cardioversion. Brief hx obtained from pt and chart. Pt had IV infusing Rt arm. All standard monitors applied. O2 per NC at 4 lpm. NPO status verified. ASA 3. Pt received a total of 2mg Versed and 100 mg propofol incrementally without complication. Report and care turned over to cardiac cath lab radiology technologist RN. VSS pt opening eyes to command. Stop Time: 08:52 Postprocedural Diagnosis: Atrial Fib CAROL LUCERO CRNA May 22, 2018 08:59
--- NOTE | 2018-05-22 09:00 | Cardioversion ---
Cardioversion PROCEDURE PHYSICIAN: Lucila Sanchez DATE OF PROCEDURE: 05/22/18 DIRECT EXTERNAL ELECTRICAL CARDIOVERSION: Indications: Atrial Fibrillation Preoperative diagnoses: Atrial Fibrillation Postoperative diagnosis: Sinus rhythm, Successful Electrical Cardioversion Anesthesia: By Anesthesia services Complications: None Specimen: None Contrast: 0 Flouroscopy: none Procedure Details: The patient was brought the union laborer after informed consent was taken, all the risks and complications were explained including the risk of stroke. Electrical cardioversion was carried out with anesthesia support with propofol. 120 joules of synchronized shock was delivered through external patches which promptly restored sinus rhythm. The patient tolerated the procedure well. Patient returned to atrial fibrillation after few minutes Conclusions: Patient converted to sinus rhythm but was unable to maintain it, returned to atrial fibrillation after few minutes Final Diagnosis: Chronic atrial fibrillation Palpitation Dizziness LUCILA SANCHEZ MD May 22, 2018 09:00
[2018-05-22 09:05] VITALS: BP 99/72
[2018-05-22 09:13] VITALS: BP_SYST 103; BP_DIAS 3; BP_DIAS 83
--- NOTE | 2018-05-22 09:32 | NUR ---
gag reflex has returned taking ice chips without difficulty, followed by ice water, tolerated well
--- NOTE | 2018-05-22 10:01 | NUR ---
reviewed dc instructions, iv dc'd cath intact on removal. already has a follow up appt in place. dc'd via w/c.
== END | disposition home or self-care (01) ==
LOC: CATH 06:34
PROVIDERS: ATTEND Internal Medicine Cardiovascular Disease
DX: I48.2 Chronic atrial fibrillation (principal); R00.2 Palpitations; R42 Dizziness and giddiness; Z86.711 Personal history of pulmonary embolism; Z86.718 Personal history of other venous thrombosis and embolism; Z79.01 Long term (current) use of anticoagulants; Z79.899 Other long term (current) drug therapy; Z87.891 Personal history of nicotine dependence; E78.5 Hyperlipidemia, unspecified; I34.0 Nonrheumatic mitral (valve) insufficiency
CPT/HCPCS: 36415; 71045; 80053; 80061; 85027; 85610; 85730; 87081; 92960; 93005; 93312; 93320; 93325

== ENCOUNTER → 2021-05-12 | Outpatient (CLI) | payer MEDICARE ==
[~2021-05-12] VITALS: Ht 180 cm; Wt 98.0 kg
[~2021-05-12] MED LIST changes: +CATHETER FLUSH 10 ML SYR IVP PRN; -DRON400T2 PO; +DRON400T6 PO; -LIDOCAINE 2% VISCOUS 15 ML UDC ONE; -LIDOCAINE 2% VISCOUS 15 ML UDC PO ONE; -MECL-106 PO; +MECL-149 PO; -METO-387 PO; -MIDAZOLAM 2 MG/2 ML (VERSED) VIAL ONE; +MTP25TSR PO; -NS IV 1000 ML 1,000 ML IV SCH; -NS IV 1000 ML 1,000 ML ONE; -OMEP20CA12 PO; +OMEP20CA18 PO; +PROP150T PO; -PROP150T2 PO; +REGADENOSON 0.4 MG/5 ML SYR (LEXISCAN) IV ONE; -proPOfol 200 MG/20 ML (DIPRIVAN) VIAL IV ONE
[2021-05-12 12:10] VITALS: BP 147/90
--- NOTE | 2021-05-12 14:52 | STRESS TEST ---
DATE OF SERVICE: 05/12/2021 RESTING AND POST REGADENOSON TECHNETIUM-99M TETROFOSMIN SPECT CT IMAGING ORDERING PHYSICIAN: Dr. Davis. PRIMARY PHYSICIAN: Dr. Hyde. CLINICAL DIAGNOSIS: Chest discomfort. Baseline images were carried out after injection of 10.14 mCi of technetium-99m Tetrofosmin. This was followed by 0.4 mg regadenoson and 32.6 mCi of technetium-99m Tetrofosmin for stress imaging. The electrocardiogram showed sinus rhythm at baseline. It did not change significantly with the regadenoson infusion. The patient tolerated the procedure well. Review of images at rest and following stress does not indicate any distinct perfusion defects consistent with significant myocardial ischemia or infarction. Some degree of diaphragmatic attenuation is seen both at rest and following regadenoson infusion. Gated images show normal regional wall motion, including the diaphragmatic wall of the left ventricle. Left ventricular ejection fraction is calculated to be 80%. Left ventricular end-diastolic volume is 62 mL. TID is absent (1.02). CONCLUSIONS: 1. No evidence of any significant myocardial ischemia or infarction on this study. 2. Normal regional wall motion. 3. Normal global left ventricular systolic function with a calculated ejection fraction of 80%. Job ID: [id number] DocumentID: [id number] Dictated Date: 05/12/2021 14:18:18 Construction Project Manager Date: 05/12/2021 14:51:40 Dictated By: JAC DAVIS MD, MA, FACP, FACC,
--- NOTE | 2021-05-12 17:42 | Diagnostic Imaging Report ---
Exam: Ultrasound for assessment of brachial indexes. Comparison: None. Indication: 66-year-old male, lower leg pain. Findings: The right ankle-brachial index is measured at 1.16 and 1.17 on the left. Impression: 1. Right and left brachial indexes measuring 1.16 and 1.17, respectively. Dictated by: Dictated on workstation # [id number]
== END ==
LOC: CARD 10:30
PROVIDERS: ATTEND Internal Medicine Cardiovascular Disease
DX: R07.89 Other chest pain (principal); M79.669 Pain in unspecified lower leg
CPT/HCPCS: 78452; 93017; 93306; 93923; A9502